=== PATIENT | male | born 1935 | race Caucasian/White ===

== ENCOUNTER 2023-05-16 09:35 | Inpatient (IN) ==
--- OUTSIDE RECORDS SUMMARY | 2023-05-16 09:39 | External Medical Summary | Summary of Care ---
Author Name Unknown Organization [facility] Address [address] [place] [address] Phone [phone] Care Team Providers Care Cotton Weigher Name Role Phone Alejandro Reddy DO Primary Care Provider [phone] Reason for Visit * Reason Comments Other Encounter Details Date Type Department Care Team (Latest Contact Info) Description 05/12/2023 7:15 PM EST [facility] Visit [facility] [address] [place] [address] Blanca Thurston PA-C [address] [place] [id number] Gout with tophus*; Atrial fibrillation with rapid ventricular response (HCC); HTN, goal below 140/90 Allergies No known active allergiesdocumented as of this encounter (statuses as of 05/13/2023) Medications Medication Sig Dispensed Refills Start Date End Date Status EXCEDRIN EXTRA STRENGTH 250-250-65 MG PO TABS takes daily for sinus problems 0 Active CLARITIN 10 MG PO CAPS None Entered 0 Active Metoprolol Succinate ER 50 MG Oral Tablet Extended Release 24 Hour (toPROL XL)Indications:Chronic atrial fibrillation (HCC) Take 1 Tablet by mouth in the morning and 1 Tablet before bedtime. 60 Tablet 5 12/07/2022 Active Eliquis 5 MG Oral TabletIndications:Chronic atrial fibrillation (HCC) Take 1 Tablet by mouth in the morning and 1 Tablet before bedtime. 60 Tablet 5 12/07/2022 Active Lisinopril 40 MG Oral Tablet Take 1 Tablet by mouth in the morning. 90 Tablet 2 03/09/2023 Active Omeprazole 20 MG Oral Capsule Delayed Release (PriLOSEC)Indications:Gas troesophageal reflux disease without esophagitis Take 1 Capsule by mouth in the morning. 1 hour before the first meal of the day.. 90 Capsule 3 04/06/2023 Active Finasteride 5 MG Oral Tablet (Proscar) Take 1 Tablet by mouth in the morning. 90 Tablet 3 04/06/2023 Active Furosemide 20 MG Oral Tablet (Lasix)Indications:Paroxy smal atrial fibrillation (HCC),HTN, goal below 130/80,Acute heart failure with preserved ejection fraction (HCC) Take 1 Tablet by mouth once a day on Wednesday, Wednesday, and Wednesday only. 40 Tablet 3 04/07/2023 Active Atorvastatin Calcium 10 MG Oral Tablet (Lipitor)Indications:Pure hypercholesterolemia Take 1 Tablet by mouth in the morning. 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 90 Tablet 3 05/07/2023 Active Indomethacin 50 MG Oral CapsuleIndications:Gout with tophus Take 1 Capsule by mouth 3 times a day as needed for Pain. with food. Wean yourself slowly once you have had some relief. 40 Capsule 0 05/12/2023 Active Doxycycline Hyclate 100 MG Oral CapsuleIndications:Gout with tophus Take 1 Capsule by mouth in the morning and 1 Capsule before bedtime. Do all this for 10 days. Until gone.. 20 Capsule 0 05/12/2023 05/22/19 24 Active Doxycycline Hyclate 100 MG Oral CapsuleIndications:Gout with tophus Take 1 Capsule by mouth once for 1 dose. Until gone. 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 Pure hypercholesterolemia 09/06/2017 History of nonmelanoma skin cancer 04/05/2017 Overview: BCC right upper lip 05/16, 07/20 HTN, goal below 140/90 07/06/2013 Gout 07/06/2013 documented as of this encounter (statuses as of 05/13/2023) Resolved Problems Problem Noted Date Diagnosed Date Resolved Date Dermatitis of both ear canals 11/26/2016 03/22/2017 Epistaxis 11/26/2016 03/22/2017 History of basal cell carcinoma 09/18/2011 04/05/2017 Overview: right upper lip 05/16 documented as of this encounter (statuses as of 05/13/2023) Immunizations Name Administration Dates Next Due COVID-19 mRNA, LNP-s, No Pre serve, 2-Dose Series (Moderna) 02/14/2021,05/18/2020,04/07/2020 Covid-19, Mrna, Lnp-s, Pf, B ivalent, 30 Mcg, IM, 12 yrs and above (Pfizer) 02/23/2022 Pneumococcal Conjugate Vacc, 13 Valent (Prevnar) 11/18/2015 Pneumococcal Polysaccharide PPV23 (Pneumovax) 01/09/2013 Season Influenza, Quad, PF, Adjuvanted, 65+ Yrs, IM (FLUAD) 11/27/2019 Seasonal Influenza, PF, 6 M & above, IM , (FluLaval or Fluzone) 01/07/2018 Seasonal Influenza, Quadriva lent Hd (Fluzone Hd) 12/07/2022,02/16/2022 Seasonal Influenza, Quadriva lent, No Preserve, IM 11/23/2016,11/18/2015,12/06/2014 12/07/2015 Seasonal Influenza, Split, I IV3, With Preserve, Inj 12/20/2013,01/09/2013,12/17/2011 Seasonal Influenza, Trivalen t, Adjuvanted, 65+ yrs 02/19/2021,12/16/2018 TDAP (age 10 and older)(Boostrix) 01/08/2014 Varicella Zoster Vaccine (Adult) 01/08/2014 documented as of this encounter Social History Tobacco Use Types Packs/Day Years Used Date Smoking Tobacco: Never Smokeless Tobacco: Never Tobacco Cessation:Counseling Given: Yes Alcohol Use Standard Drinks/Week Comments Yes 8.3 (1 standard drink = 0.6 oz p ure alcohol) occ PHQ-2 Answer Date Recorded PHQ-2 Score 0 04/04/2019 Sex and Gender Information Value Date Recorded Sex Assigned at Not on file Gender Identity Not on file Sexual Orientation Not on file Job Start Date Occupation Industry Not on file Not on file Not on file documented as of this encounter Last Filed Vital Signs Vital Sign Reading Time Taken Comments Blood Pressure 120/66 05/12/2023 6:27 PM EST Pulse 120 05/12/2023 6:27 PM EST Temperature 36.3 C (97.4 F) 05/12/2023 6:27 PM ES T Respiratory Rate 14 05/12/2023 6:27 PM EST Oxygen Saturation 93% 05/12/2023 6:27 PM EST Inhaled Oxygen Concentration - - Weight 100.1 kg (220 lb 9.6 oz) 05/12/2023 6:27 PM EST Height 171.5 cm (5' 7.5") 05/12/2023 6:27 PM EST Body Mass Index 34.04 05/12/2023 6:27 PM EST documented in this encounter Patient Instructions * Patient Instructions* Blanca Thurston PA-C - 05/12/2023 8:00 PM EST You were prescribed doxycyline. Take medication as directed. This drug may make you sunburn more easily. Use care if you will be in the sun. control pills and other hormone-based control may not work as well to prevent . Use some other kind of control also like a condom when taking this drug. DO NOT TAKE if or trying to become . It is best to avoid taking this drug at the same time as milk, dairy, or other products with calcium. This drug may not work as well. Do not take bismuth (Pepto-Bismol), calcium, iron, magnesium, zinc, multivitamins with minerals, colestipol, cholestyramine, didanosine, or antacids within 2 hours of this drug. Take all antibiotic even if symptoms improve sooner. Stopping early increases risk of antibiotic resistance and returning infection. Go to ED if erythema not improving after 36 hours. Apply cold compresses and elevate as needed for comfort. Try over the counter nonsteroidal antiinflammatory drugs such as ibuprofen or naproxen to reduce pain. Use over the counter Zyrtec (certirzine) to help with itching. You can use otc steroid cream on area to also help with itch Hot showers can make the itch worse. Follow-up sooner with PCP sooner or return to be evaluated with any change/worsening symptoms including worsening redness, warmth, fevers, chills or if symptoms persist. If any severe/acute worsening of symptoms develop, go to the ED. documented in this encounter Progress Notes * Blanca Thurston PA-C - 05/12/2023 7:49 PM EST HPI 87 year old male presents for evaluation of possible cellulitis. Patient was accompanied by Self. Location: right thumb Symptoms include: redness, warmth, and swelling, severe pain, "bumps" Symptoms started 4 days ago Symptoms are: gradually worsening Patient denies: fever, chills, and swollen lymph nodes Prior trauma or injury to the area? No Any prior history of similar symptoms? Yes, explain: had gout several years ago. Notes this is whatit usually starts at but then had worsening despite being on indocin History of any type of resistant bacteria (i.e. MRSA, VRE, etc)? 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 Yes, explain: afib, htn Modifying factors? Yes, explain: indomethacin ROS: See HPI for pertinent positives and negatives. Review of patient's allergies indicates: No Known Allergies Current Outpatient Medications Medication Sig Dispense Refill Metoprolol Succinate ER 50 MG Oral Tablet Extended Release 24 Hour (toPROL XL) Take 1 Tablet by mouth in the morning and 1 Tablet before bedtime. 60 Tablet 5 Eliquis 5 MG Oral Tablet Take 1 Tablet by mouth in the morning and 1 Tablet before bedtime. 60 Tablet 5 Lisinopril 40 MG Oral Tablet Take 1 Tablet by mouth in the morning. 90 Tablet 2 Omeprazole 20 MG Oral Capsule Delayed Release (PriLOSEC) Take 1 Capsule by mouth in the morning. 1 hour before the first meal of the day.. 90 Capsule 3 Finasteride 5 MG Oral Tablet (Proscar) Take 1 Tablet by mouth in the morning. 90 Tablet 3 Furosemide 20 MG Oral Tablet (Lasix) Take 1 Tablet by mouth once a day on Wednesday, Wednesday, and Wednesday only. 40 Tablet 3 Atorvastatin Calcium 10 MG Oral Tablet (Lipitor) Take 1 Tablet by mouth in the morning. 90 Tablet 3 Allopurinol 300 MG Oral Tablet (Zyloprim) Take 1 Tablet by mouth in the morning. 90 Tablet 3 Indomethacin 50 MG Oral Capsule Take 1 Capsule by mouth 3 times a day as needed for Pain. with food. Wean yourself slowly once you have had some relief. 40 Capsule 0 Doxycycline Hyclate 100 MG Oral Capsule Take 1 Capsule by mouth in the morning and 1 Capsule beforebedtime. Do all this for 10 days. Until gone.. 20 Capsule 0 Doxycycline Hyclate 100 MG Oral Capsule Take 1 Capsule by mouth once for 1 dose. Until gone. 1 Capsule 0 EXCEDRIN EXTRA STRENGTH 250-250-65 MG PO TABS takes daily for sinus problems CLARITIN 10 MG PO CAPS None Entered No current facility-administered medications for this visit. Past Medical History: Diagnosis Date Diverticulosis of colon (without mention of hemorrhage) 08/07/2013 sigmoid colon Obstructive sleep apnea 03/02/07 Past Surgical History: Procedure Laterality Date COLONOSCOPY 01/25/03 negative COLONOSCOPY, DIAGNOSTIC (RECTUM) 08/07/2013 diverticulosis, repeat 10 yrs/COLONOSCOPY FLEXIBLE PROXIMAL DIAGNOSTIC performed by Pollo Aragon MD at ENDOSCOPY [facility] PROSTATE, LASER VAPORIZATION N/A 05/19/2021 LASER VAPORIZATION PROSTATE performed by Isauro Hammond MD at OR [facility] REMOVE LARGE BLADDER STONE, COMPLIC N/A 05/19/2021 LITHOLAPAXY COMPLICATED performed by Isauro Hammond MD at OR [facility] RMV MALG LSN FACE/EAR 1.1-2CM basal cell Social History Tobacco Use Smoking status: Never Smokeless tobacco: Never Substance Use Topics Alcohol use: Yes Alcohol/week: 8.3 standard drinks of alcohol Types: 10 12 oz of beer per week Comment: occ Vaping/E-Cigarette Use Vaping/E-Cigarette Use Never User Vaping/E-Cigarette Substances Nicotine No Other No Flavoring No THC No Cannabidiol (CBD) No Vaping/E-Cigarette Devices Disposable No Pre-filled or Refillable Cartridge No Refillable Tank No Pre-filled Pod No PHYSICAL EXAM BP 120/66 | Pulse 120 | Temp 36.3 C (97.4 F) | Resp 14 | Ht 1.715 m (5' 7.5") | Wt 100.1 kg (220 lb 9.6 oz) | SpO2 93% | BMI 34.04 kg/m | BSA 2.18 m General: awake, alert, no apparent distress Eyes: no proptosis, no periorbital inflammation or soft tissue edema, no orbital cellulitis Lungs: clear to auscultation, no rhonchi, no wheezes, and no crackles Heart: regular rate, regular rhythm, no murmurs , no rubs, and no gallops Skin of right hand: thumb and dorsal hand with tophus and significant swelling with erythema and induration and tenderness Drainage is not present. Fluctuation is present. Skin does have peau d'orange appearance. Lymph nodes: Regional lymphadenopathy is absent . ASSESSMENT/PLAN Gout with tophus (Primary) - Indomethacin 50 MG Oral Capsule; Take 1 Capsule by mouth 3 times a day as needed for Pain. with food. Wean yourself slowly once you have had some relief. - Doxycycline Hyclate 100 MG Oral Capsule; Take 1 Capsule by mouth in the morning and 1 Capsule before bedtime. Do all this for 10 days. Until gone.. - Doxycycline Hyclate 100 MG Oral Capsule; Take 1 Capsule by mouth once for 1 dose. Until gone. Atrial fibrillation with rapid ventricular response (HCC) HTN, goal below 140/90 Patient is at risk for MRSA and therefore will give doxycycline. Gave first dose in office due to pharmacies not being available to patient. Also to treat for gout flare. Due to afib history, to avoid steroid use. Patient made aware of severity of symptoms and possible need for ED. Defers at this time. Will treat for both and have patient follow up with pcp if no improvement. Defers additional blood work. Affected area demarcated and instructed patient on appropriate monitoring of erythema to determine response to antibiotics. To return if erythema not improving after 36 hours. Care instructions given. Additional instructions per patient instructions attached. Follow up with PCP in 3-5 days to follow up. Reasons to go to ED discussed with patient including but not limited to development of acute or severe symptoms. Patient agrees with the plan and demonstrates verbal understanding. Patient stable at the time of discharge. Begin addendum: while prescribing indomethacin, report for eliquis and increased likelihood of bleeding came up. Patient notes "I am already taking indomethacin and I am not bleeding". I explained that I would reach out to care team to discuss prednisone alternative vs indomethacin. Will refill fornow. Patient expressed understanding. End addendum Patient instructed to contact Primary Care Provider for follow-up within 48-72 hours. Can return toConvenient Care if unable to reach Primary Care Provider and symptoms not improving. To the ER if worsening redness, pain, high fevers/shaking chills. The border of erythema was outlined to aid in assessing response to therapy if necessary. Patient goals for plan of care were discussed Patient Instructions You were prescribed doxycyline. Take medication as directed. This drug may make you sunburn more easily. Use care if you will be in the sun. control pills and other hormone-based control may not work as well to prevent . Use some other kind of control also like a condom when taking this drug. DO NOT TAKE if or trying to become . It is best to avoid taking this drug at the same time as milk, dairy, or other products with calcium. This drug may not work as well. Do not take bismuth (Pepto-Bismol), calcium, iron, magnesium, zinc, multivitamins with minerals, colestipol, cholestyramine, didanosine, or antacids within 2 hours of this drug. Take all antibiotic even if symptoms improve sooner. Stopping early increases risk of antibiotic resistance and returning infection. Go to ED if erythema not improving after 36 hours. Apply cold compresses and elevate as needed for comfort. Try over the counter nonsteroidal antiinflammatory drugs such as ibuprofen or naproxen to reduce pain. Use over the counter Zyrtec (certirzine) to help with itching. You can use otc steroid cream on area to also help with itch Hot showers can make the itch worse. Follow-up sooner with PCP sooner or return to be evaluated with any change/worsening symptoms including worsening redness, warmth, fevers, chills or if symptoms persist. If any severe/acute worsening of symptoms develop, go to the ED. I spent a total of 38 minutes on the date of service in preparation, delivery, and documentation ofthe care provided to Bautista Villarreal excluding any time spent in the performance of separately billedservices. Blanca Thurston PA-C [facility] [address] [facility] [place] [address] documented in this encounter Nursing Notes * Sally Guerrero LPN - 05/12/2023 8:19 PM EST Per order in chart-pt administered doxycycline hyclate 100mg tab orally without incident. Doxycycline Hyclate Lot # [id number] exp 09/29. * Sanjana Naylor LPN - 05/12/2023 6:26 PM EST Bautista Villarreal is a 87 year old male who presents to clinic today for... Main Symptoms:right thumb red, swollen, painful and warm to touch How long: since Wednesday Tried: indocin Pt accompanied by: self documented in this encounter Plan of Treatment Upcoming Encounters Date Type Department Care Team (Late st Contact Info) Description 07/16/2023 7:15 AM EDT Cardiac Studies Cardiac Studies, [facility] [address] [facility] [place] [address] 09/10/2023 8:30 AM EDT Office Visit Cardiology, [facility] [address] [facility] [place] [address] Anahy Saunders PA-C [address] [place] [address] [place] [id number] 12/03/2023 8:40 AM EDT [facility] [address] [facility] [address] Alejandro Reddy DO [address] [place] [address] Scheduled Procedures Name Priority Associated Diagnoses Date/Ti me COLONOSCOPY FLEXIBLE PROXIMA L DIAGNOSTIC Recall Special screening for malignant neoplasms, colon Health Maintenance Due Date Last Done Comments Zoster Vaccines (2 of 3) 03/05/2014 01/08/2014 Depression Screening 04/04/2020 04/04/2019 COVID-19 Vaccine (5 - 2022- season) 2022 02/23/2022, 02/14/2021, 05/18/2020, Additional history exists DTaP,Tdap,and Td Vaccines (2 - Td or Tdap) 01/09/2024 01/08/2014 Albumin/Creatinine Ratio 02/27/2024 02/26/2021 Pneumococcal Vaccine: 65+ Years Completed 11/18/2015, 01/09/2013 Influenza Vaccine (FLU shot) Completed 04/2022, 02/16/2022, 02/19/2021, Additional history exists GARDASIL-HPV IMMUNIZATION SERIES Aged Out No longer eligible based on patient's age to complete this topic Hepatitis B Aged Out No longer eligi ble based on patient's age to complete this topic MENINGOCOCCAL (MENACTRA/MENVEO) Aged Out No longer eligible based on patient's age to complete this topic documented as of this encounter Medical Devices Not on filedocumented as of this encounter Visit Diagnoses Diagnosis Gout with tophus- Primary Atrial fibrillation with rapid ventricular response (HCC) Atrial fibrillation HTN, goal below 140/90 Unspecified essential hypertension documented in this encounter Advance Directives Documents on File Type Date 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 Code Status History Code Status Date Activated Date Inactivated Comments Full Code 05/19/2021 9:08 AM 05/19/2021 12:38 PM This order reflects the patients wishes and were consensually agreed upon. Care Teams Cotton Weigher Relationship Specialty Start Date End Date Alejandro Reddy DO [address] [place] [address] PCP - General Family Medicine 04/05/17 documented as of this encounter
--- OUTSIDE RECORDS SUMMARY | 2023-05-16 09:39 | External Medical Summary | Summary of Care ---
Author Name Unknown Organization [facility] Address [address] [place] [address] Phone [phone] Care Team Providers Care Yarn Spinner Name Role Phone Alejandro Reddy DO Primary Care Provider [phone] Encounter Details Date Type Department Care Team (Late st Contact Info) Description 05/07/2023 Telephone Family Practice [facility] [address] [place] [address] Alejandro Reddy DO [address] [place] [address] Allergies No known active allergiesdocumented as of this encounter (statuses as of 05/07/2023) Medications Medication Sig Dispensed Refills Start Date [...] the morning. 90 Tablet 3 05/07/2023 Active documented as of this encounter (statuses as of 05/07/2023) Active Problems Problem Noted Date Diagnosed Date [...] as of this encounter (statuses as of 05/07/2023) Resolved Problems Problem Noted Date Diagnosed Date Resolved Date Dermatitis of both ear canals 11/26/2016 03/22/2017 Epistaxis 11/26/2016 03/22/2017 History of basal cell carcinoma 09/18/2011 04/05/2017 Overview: right upper lip 05/16 documented as of this encounter (statuses as of 05/07/2023) Immunizations Name Administration Dates Next Due COVID-19 [...] Date Smoking Tobacco: Never Smokeless Tobacco: Never Alcohol Use Standard Drinks/Week Comments Yes 8.3 [...] on file documented as of this encounter Plan of Treatment Upcoming Encounters Date Type Department Care Team (Late st Contact Info) Description 07/16/2023 7:15 AM EDT Cardiac Studies Cardiac Studies, [facility] [address] [facility] [place] [address] 09/10/2023 8:30 AM EDT Office Visit Cardiology, [address] [place] [address] Anahy Saunders PA-C [address] [place] [address] 12/03/2023 8:40 AM EDT Office Visit Family Practice [facility] [place] [address] [facility] [place] [address] Alejandro Reddy DO [address] [facility] [place] [address] Scheduled Orders Name Type Priority Associated Diagnoses Orde r Schedule BNP, NT-PRO Lab Routine Atrial fibrillation with rapid ventricular response (HCC) Expected: 05/14/2023 (Approximate), Expires: 05/06/2024 BASIC METABOLIC PANEL Lab Routine Atrial fibrillation with rapid ventricular response (HCC) Expected: 05/14/2023 (Approximate), Expires: 05/06/2024 Scheduled Procedures Name Priority Associated Diagnoses Date/Ti me COLONOSCOPY FLEXIBLE PROXIMA L DIAGNOSTIC Recall Special screening for malignant neoplasms, colon Health Maintenance Due Date Last Done Comments Zoster Vaccines (2 of 3) 03/05/2014 01/08/2014 Depression Screening 04/04/2020 04/04/2019 COVID-19 Vaccine (2022- season) 2022 02/23/2022, 02/14/2021, 05/18/2020, Additional history [...] as of this encounter Visit Diagnoses Diagnosis Atrial fibrillation with rapid ventricular response (HCC)- Primary Atrial fibrillation documented in this encounter Advance Directives Documents on File Type Date 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 Care Teams Yarn Spinner Relationship Specialty Start Date End Date Alejandro Reddy DO [address] [place] [id number] PCP - General Family Medicine 04/05/17 documented as of this encounter
--- OUTSIDE RECORDS SUMMARY | 2023-05-16 09:39 | External Medical Summary | Summary of Care ---
Author Name Unknown Organization [facility] Address [address] [place] [address] Phone [phone] Care Team Providers Care Cut Out Worker Name Role Phone Alejandro Reddy DO Primary Care Provider [phone] Encounter Details Date Type Department Care Team (Late st Contact Info) Description 05/11/2023 Orders Only Outcomes Research Department [address] [place], [place] [id number] Leelee Nova CHRA [facility] Research Other*[id number] Allergies No known active allergiesdocumented as of this encounter (statuses as of 05/11/2023) Medications Medication Sig Dispensed Refills Start Date [...] as of this encounter (statuses as of 05/11/2023) Active Problems Problem Noted Date Diagnosed Date [...] as of this encounter (statuses as of 05/11/2023) Resolved Problems Problem Noted Date Diagnosed Date Resolved Date Dermatitis of both ear canals 11/26/2016 03/22/2017 Epistaxis 11/26/2016 03/22/2017 History of basal cell carcinoma 09/18/2011 04/05/2017 Overview: right upper lip 05/16 documented as of this encounter (statuses as of 05/11/2023) Immunizations Name Administration Dates Next Due COVID-19 [...] 7:15 AM EDT Cardiac Studies Cardiac Studies, [facility] [address] [facility] [place] [address] 09/10/2023 8:30 AM EDT Office Visit Cardiology, [facility] [address] [facility] [place] [address] Anahy Saunders PA-C [address] [place] [address] 12/03/2023 8:40 AM EDT Office Visit Family Practice [place] [facility] [place] [address] [facility] [place] [address] Alejandro Reddy DO [address] [facility] [place] [address] Scheduled Orders Name Type Priority Associated Diagnoses Orde r Schedule MYCODE SUBSEQUENT ADULT Lab Routine [facility] Other*[id number] Every 6 Months for 2 Occurrences starting 05/11/2023 until 05/30/2024 Scheduled Procedures Name Priority Associated Diagnoses Date/Ti me COLONOSCOPY FLEXIBLE PROXIMA L DIAGNOSTIC Recall Special screening for malignant neoplasms, colon Health Maintenance Due Date Last Done Comments Zoster Vaccines (2 of 3) 03/05/2014 01/08/2014 Depression Screening 04/04/2020 04/04/2019 COVID-19 Vaccine ( season) 2022 02/23/2022, 02/14/2021, 05/18/2020, Additional history [...] as of this encounter Visit Diagnoses Diagnosis [facility] Other*[id number] documented in this encounter Advance Directives Documents on File Type Date Recorded Patient Insurance Defense Paralegal Expl anation Advance Directives and Living Will [...] and were consensually agreed upon. Care Teams Cut Out Worker Relationship Specialty Start Date End Date Alejandro Reddy DO [address] [place] [address] PCP - General Family Medicine 04/05/17 documented as of this encounter
--- OUTSIDE RECORDS SUMMARY | 2023-05-16 09:39 | External Medical Summary | Summary of Care ---
Author Name Unknown Organization [facility] Address [address] [place] [address] Phone [phone] Care Team Providers Care Trophy Assembler Name Role Phone Alejandro Reddy DO Primary Care Provider [phone] Reason for Visit * Reason Comments Other Encounter Details Date Type Department Care Team (Latest Contact Info) Description 05/12/2023 7:15 PM EST Convenient Care Visit [facility] [address] [place] [address] Blanca Thurston PA-C [address] [place] [address] Gout with tophus*; Atrial fibrillation with rapid ventricular response (HCC); HTN, goal below 140/90 Allergies No known active allergiesdocumented as of this encounter (statuses as of 05/12/2023) Medications Medication Sig Dispensed Refills Start Date [...] days. Until gone.. 20 Capsule 0 05/12/2023 4 Active Doxycycline Hyclate 100 MG Oral CapsuleIndications:Gout with tophus Take 1 Capsule by mouth once for 1 dose. Until gone. 1 Capsule 0 05/12/2023 4 Active documented as of this encounter (statuses as of 05/12/2023) Active Problems Problem Noted Date Diagnosed Date [...] as of this encounter (statuses as of 05/12/2023) Resolved Problems Problem Noted Date Diagnosed Date Resolved Date Dermatitis of both ear canals 11/26/2016 03/22/2017 Epistaxis 11/26/2016 03/22/2017 History of basal cell carcinoma 09/18/2011 04/05/2017 Overview: right upper lip 05/16 documented as of this encounter (statuses as of 05/12/2023) Immunizations Name Administration Dates Next Due COVID-19 [...] performed by Pollo Aragon MD at ENDOSCOPY [facility] PROSTATE, LASER VAPORIZATION N/A 05/19/2021 LASER VAPORIZATION PROSTATE performed by Isauro Hammond MD at OR [facility] REMOVE LARGE BLADDER STONE, COMPLIC N/A 05/19/2021 LITHOLAPAXY COMPLICATED performed by Isauro Hammond MD at OR [facility] RMV MALG LSN FACE/EAR 1.1-2CM basal cell [...] Patient stable at the time of discharge. Patient instructed to contact Primary Care Provider [...] performance of separately billedservices. Blanca Thurston PA-C [facility] [address] [facility] [address] documented in this encounter Nursing Notes * Sally Guerrero LPN - 05/12/2023 8:19 PM EST Per order in chart-pt administered doxycycline hyclate 100mg tab orally without incident. Doxycycline Hyclate Lot # [id number] exp 09/29. * Sanjana Naylor LPN - [...] 7:15 AM EDT [facility] [address] [place] [address] 09/10/2023 8:30 AM EDT [facility] [address] [facility] [place] [address] Anahy Saunders PA-C [address] [place] [address] [place] [address] 12/03/2023 8:40 AM EDT Office Visit Family Practice Manuel Guido [place] [address] [place] [address] Alejandro Reddy DO [address] [place] [address] Scheduled Procedures Name Priority Associated Diagnoses Date/Ti [...] Documents on File Type Date Recorded Patient Cook Fast Food Expl anation Advance Directives and Living Will [...] and were consensually agreed upon. Care Teams Trophy Assembler Relationship Specialty Start Date End Date Alejandro Reddy DO [address] [place] [address] PCP - General Family Medicine 04/05/17 documented as of this encounter
--- OUTSIDE RECORDS SUMMARY | 2023-05-16 09:39 | External Medical Summary | Summary of Care ---
Author Name Unknown Organization [facility] Address [address] [place] [address] Phone [phone] Care Team Providers Care Mate Chief Name Role Phone Alejandro Reddy Primary Care Provider [phone] Reason for Visit * Reason Onset Date Comments Medication Question 05/13/2023 Encounter Details Date Type Department Care Team ([facility] st Contact Info) Description 05/13/2023 Telephone [facility] [employer] [facility] [address] [place] [address] Blanca Thurston PA-C [address] [place] [address] Medication Question Allergies No known active allergiesdocumented as of [...] days. Until gone.. 20 Capsule 0 05/12/2023 Active documented as of this encounter (statuses [...] on file documented as of this encounter Miscellaneous Notes * Telephone Encounter - Blanca Thurston PA-C - 05/13/2023 9:54 AM EST Called and spoke to cardiology. (JEANNETTE Saunders) Explained patient's recent acute condition and concerns of indomethacin and eliquis, vs prednisone and afib. At present, they recommend continuing indomethacin and monitoring for signs/symptoms of bleeding. They note that they will follow up with patient. documented in this encounter Plan of Treatment Upcoming Encounters Date Type Department Care Team (Late st Contact Info) Description 07/16/2023 7:15 AM EDT Cardiac Studies Cardiac Studies, [facility] [address] [facility] [place] [address] 09/10/2023 8:30 AM EDT Office Visit Cardiology, [facility] [address] [facility] [place] [address] Anahy Saunders PA-C [address] [place] [address] [place] [address] 12/03/2023 8:40 AM EDT Office Visit Family Practice [facility] [address] [facility] [place] [address] Alejandro Reddy DO [address] [facility] [place] [address] Scheduled Procedures Name Priority Associated Diagnoses Date/Ti [...] Not on filedocumented as of this encounter Advance Directives Documents on File Type Date Recorded Patient Enterprise Systems Engineer Expl anation Advance Directives and Living Will [...] and were consensually agreed upon. Care Teams Mate Chief Relationship Specialty Start Date End Date Alejandro Reddy DO [address] [place], [place] [address] PCP - General Family Medicine 04/05/17 documented as of this encounter
--- OUTSIDE RECORDS SUMMARY | 2023-05-16 09:39 | External Medical Summary | Summary of Care ---
Author Name Unknown Organization [facility] Address [address] [place] [address] Phone [phone] Care Team Providers Care Chargeback Analyst Name Role Phone Alejandro Reddy DO Primary Care Provider [phone] Reason for Visit * Reason Comments Outpatient Testing Encounter Details Date Type Department Care Team (Latest Contact Info) Description 05/07/2023 9:30 AM EST Laboratory Laboratory [facility] [place] [address] [place] [address] [facility] [address] [place] [address] Chronic atrial fibrillation (HCC); Encounter for long-term (current) use of medications; [employer] Research Other*[id number]; Acute heart failure with preserved ejection fraction (HCC); Pure hypercholesterolemia Allergies No known active allergiesdocumented as of [...] cancer 04/05/2017 Overview: BCC right upper lip 07/20 HTN, goal below 140/90 07/06/2013 Gout [...] 7:15 AM EDT Cardiac Studies Cardiac Studies, [facility] [address] [place] [address] 09/10/2023 8:30 AM EDT Office Visit Cardiology, [facility] [address] [place] [address] Anahy Saunders PA-C [address] [facility] [place] [address] 12/03/2023 8:40 AM EDT Office Visit [facility] [place] [address] [facility] [place] [address] Alejandro Reddy DO [address] [facility] [place] [address] Pending Results Name Type Priority Associated Diagnoses Date /Time CBC WITH WBC DIFFERENTIAL AND ANEMIA REFLEX WORKUP Lab Routine Chronic atrial fibrillation ([facility]) 05/07/2023 9:07 AM EST VITAMIN B12 Lab Routine Encounter for long-term (current) use of medications 05/07/2023 9:07 AM EST MAGNESIUM Lab Routine Encounter for long-term (current) use of medications 05/07/2023 9:07 AM EST MYCODE INITIAL ADULT Lab Routine [facility] Other*[id number] 05/07/2023 9:07 AM EST LIPID PANEL WITH DIRECT LDL IF TG IS HIGH Lab Routine Acute heart failure with preserved ejection fraction (HCC) Pure hypercholesterolemia 05/07/2023 9:07 AM EST COMPREHENSIVE METABOLIC PANEL Lab Routine Acute heart failure with preserved ejection fraction (HCC) Pure hypercholesterolemia 05/07/2023 9:07 AM EST BNP, NT-PRO Lab Routine Acute heart failure with preserved ejection fraction (HCC) 05/07/2023 9:07 AM EST ANEMIA CBC Lab Routine Chronic atrial fibrillation ([facility]) 05/07/2023 9:07 AM EST DIFFERENTIAL, AUTOMATED Lab Routine Chronic atrial fibrillation ([facility]) 05/07/2023 9:07 AM EST ANEMIA REFLEX CHEMISTRY HOLD Lab Routine Chronic atrial fibrillation ([facility]) 05/07/2023 9:07 AM EST MYCODE INITIAL ADULT-PINK Lab Routine [facility] Other*[id number] 05/07/2023 9:07 AM EST MYCODE SST1 Lab Routine [facility] Other*[id number] 05/07/2023 9:07 AM EST MYCODE SST2 Lab Routine [facility] Other*[id number] 05/07/2023 9:07 AM EST Scheduled Procedures Name Priority Associated Diagnoses Date/Ti [...] as of this encounter Visit Diagnoses Diagnosis Chronic atrial fibrillation (HCC) Atrial fibrillation Encounter for long-term (current) use of medications Encounter for long-term (current) use of other medications [facility] Other*[id number] Acute heart failure with preserved ejection fraction (HCC) Pure hypercholesterolemia documented in this encounter Advance Directives Documents on File Type Date Recorded Patient Back Pad Inspector Expl anation Advance Directives and Living Will [...] and were consensually agreed upon. Care Teams Chargeback Analyst Relationship Specialty Start Date End Date Newhouser, Alejandro D, DO [address] [place], [place] [id number] PCP - General Family Medicine 04/05/17 documented as of this encounter
--- OUTSIDE RECORDS SUMMARY | 2023-05-16 09:40 | External Medical Summary | Summary of Care ---
Author Name Unknown Organization [facility] Address [address] [place] [address] Phone [phone] Care Team Providers Care Instrument And Control Service Person Name Role Phone Alejandro Reddy DO Primary Care Provider [phone] Encounter Details Date Type Department Care Team (Late st Contact Info) Description 04/19/2023 Orders Only Outcomes Research Department [address] [place] [address] Leelee Nova CHRA [facility] Research Other*[id number] Allergies No known active allergiesdocumented as of this encounter (statuses as of 04/19/2023) Medications Medication Sig Dispensed Refills Start Date End Date Status EXCEDRIN EXTRA STRENGTH 250-250-65 MG PO TABS takes daily for sinus problems 0 Active CLARITIN 10 MG PO CAPS None Entered 0 Active Atorvastatin Calcium 10 MG Oral Tablet (Lipitor)Indications:Pure hypercholesterolemia Take 1 Tablet by mouth in the morning. 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 90 Tablet 3 10/02/2022 Active Metoprolol Succinate ER 50 MG Oral [...] Wednesday only. 40 Tablet 3 04/07/2023 Active documented as of this encounter (statuses as of 04/19/2023) Active Problems Problem Noted Date Diagnosed Date Atrial fibrillation with rapid ventricular respo nse [...] as of this encounter (statuses as of 04/19/2023) Resolved Problems Problem Noted Date Diagnosed Date Resolved Date Dermatitis of both ear canals 11/26/2016 03/22/2017 Epistaxis 11/26/2016 03/22/2017 History of basal cell carcinoma 09/18/2011 04/05/2017 Overview: right upper lip 05/16 documented as of this encounter (statuses as of 04/19/2023) Immunizations Name Administration Dates Next Due COVID-19 [...] Team (Late st Contact Info) Description 05/07/2023 8:20 AM EST Office Visit Family Practice [facility] [place] [address] [facility] [place] [address] Alejandro Reddy DO [address] [facility] [place] [address] Scheduled Orders Name Type Priority Associated Diagnoses Orde r Schedule MYCODE INITIAL ADULT Lab Routine [facility] Research Other*[id number] Expected: 04/19/2023 (Approximate), Expires: 05/08/2024 Scheduled Procedures Name Priority Associated Diagnoses Date/Ti [...] this encounter Visit Diagnoses Diagnosis [facility] Other*[id number] documented in this encounter Advance Directives Documents on File Type Date Recorded Patient Mechanical Project Manager Expl anation Advance Directives and Living Will [...] and were consensually agreed upon. Care Teams Instrument And Control Service Person Relationship Specialty Start Date End Date Alejandro Reddy DO [address] [place] [address] PCP - General Family Medicine 04/05/17 documented as of this encounter
--- OUTSIDE RECORDS SUMMARY | 2023-05-16 09:40 | External Medical Summary | Summary of Care ---
Author Name Unknown Organization [facility] Address [address] [place] [address] Phone [phone] Care Team Providers Care Physician Advisor Name Role Phone Alejandro Reddy DO Primary Care Provider [phone] Reason for Referral * Evaluate & Treat - Unlimited Visits (Within 30 days (routine)) - Pending Review Specialty Diagnoses / Procedures Referred By Gui ryan Referred To Contact Cardiovascular Medicine / Cardiology Diagnoses Paroxysmal atrial fibrillation (HCC) Acute heart failure with preserved ejection fraction (HCC) SOB (shortness of breath) on exertion Alejandro Reddy DO [address] [place] [address] Referral ID Status Reason Start Date Expiration Date Visits Requested Visits Authorized [id number] Pending Review Specialty Services Required 05/07/[phone] Question Answer Referral Priority Within 30 days (routine) Where should this appointment be scheduled? [facility] To which of the following clinics are you referring your patient? General Cardiology Clinic * Precert (Within 10 days (routine)) - Pending Review Specialty Diagnoses / Procedures Referred By Gui ryan Referred To Contact Cardiac Studies Diagnoses Paroxysmal atrial fibrillation (HCC) Acute heart failure with preserved ejection fraction (HCC) SOB (shortness of breath) on exertion Procedures ECHO, COMPLETE (2D), TRANS-THORACIC Alejandro Reddy DO [address] [place] [address] Referral ID Status Reason Start Date Expiration Date Visits Requested Visits Authorized [id number] Pending Review Precert 05/07/[phone] Reason for Visit * Reason Comments Re-Check Encounter Details Date Type Department Care Team (Late st Contact Info) Description 05/07/2023 8:20 AM EST Office Visit Family Practice [place] [address] [facility] [place] [address] Alejandro Reddy DO [address] [facility] [place] [address] Pure hypercholesterolemia* ; Paroxysmal atrial fibrillation (HCC); Acute heart failure with preserved ejection fraction (HCC); Idiopathic chronic gout of multiple sites without tophus; SOB (shortness of breath) on exertion Allergies No known active allergiesdocumented as of [...] 1 Tablet before bedtime. 60 Tablet 5 3 Active Eliquis 5 MG Oral TabletIndications:Chronic atrial fibrillation (HCC) Take 1 Tablet by mouth in the morning and 1 Tablet before bedtime. 60 Tablet 5 3 Active Lisinopril 40 MG Oral Tablet Take 1 Tablet by mouth in the morning. 90 Tablet 2 4 Active Omeprazole 20 MG Oral Capsule Delayed Release (PriLOSEC)Indications:Gas troesophageal reflux disease without esophagitis Take 1 Capsule by mouth in the morning. 1 hour before the first meal of the day.. 90 Capsule 3 4 Active Finasteride 5 MG Oral Tablet (Proscar) Take 1 Tablet by mouth in the morning. 90 Tablet 3 4 Active Furosemide 20 MG Oral Tablet (Lasix)Indications:Paroxy smal atrial fibrillation (HCC),HTN, goal below 130/80,Acute heart failure with preserved ejection fraction (HCC) Take 1 Tablet by mouth once a day on Wednesday, Wednesday, and Wednesday only. 40 Tablet 3 4 Active Atorvastatin Calcium 10 MG Oral Tablet (Lipitor)Indications:Pure hypercholesterolemia Take 1 Tablet by mouth in the morning. 90 Tablet 3 4 Active Allopurinol 300 MG Oral Tablet (Zyloprim)Indications:Idi opathic chronic gout of multiple sites without tophus Take 1 Tablet by mouth in the morning. 90 Tablet 3 4 Active Atorvastatin Calcium 10 MG Oral Tablet (Lipitor)Indications:Pure hypercholesterolemia Take 1 Tablet by mouth in the morning. 90 Tablet 3 3 05/07/19 24 Discontinu ed(Refill) Allopurinol 300 MG Oral Tablet (Zyloprim)Indications:Idi opathic chronic gout of multiple sites without tophus Take 1 Tablet by mouth in the morning. 90 Tablet 3 3 05/07/19 24 Discontinu ed(Refill) documented as of this encounter (statuses as [...] Sign Reading Time Taken Comments Blood Pressure 136/84 05/07/2023 8:16 AM EST Pulse 95 05/07/2023 8:16 AM EST Temperature 35.5 C (95.9 F) 05/07/2023 8:16 AM ES T Respiratory Rate 16 05/07/2023 8:16 AM EST Oxygen Saturation 94% 05/07/2023 8:16 AM EST Inhaled Oxygen Concentration - - Weight 98.2 kg (216 lb 9.6 oz) 05/07/2023 8:16 A M EST Height - - Body Mass Index 33.48 11/20/2022 9:38 AM EDT documented in this encounter Progress Notes * JavedAlejandro cade, DO - 05/07/2023 8:36 AM EST Subjective: Bautista Villarreal is a 87 year old male. Chief Complaint Patient presents with Re-Check HPI: Pt here in follow-up. Feels good at baseline but when doing something strenuous he gets more SOB and plays out faster. Nowheezing with it. HAs to take some deeper breathes. After he sits down a few minutes he can get back to it. Fine while sitting. He missed cardio follow-up, open to seeing them again. Overall still active. 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 Some blood in his urine. He notices if he skips an Eliquis it clears up. Blood comes rarely - Maybeonce per week. Sometimes brown urine. He actually went through a CT Urogram and cystoscopy for this already. IT came back clear. We discussed repeating it but. BP rechecked and good. PMHx, meds, and allergies reviewed Patient Active Problem List Diagnosis Code HTN, goal below 140/90 I10 Gout M10.9 History of nonmelanoma skin cancer Z85.828 Pure hypercholesterolemia E78.00 BPH with obstruction/lower urinary tract symptoms N40.1, N13.8 Gastroesophageal reflux disease without esophagitis K21.9 Hematuria, gross R31.0 Calculus of kidney N20.0 Bladder stone N21.0 Atrial fibrillation with rapid ventricular response (HCC) I48.91 Paroxysmal atrial fibrillation (HCC) I48.0 Acute heart failure with preserved ejection fraction (HCC) I50.31 Current Outpatient Medications Medication Sig Dispense Refill EXCEDRIN EXTRA STRENGTH 250-250-65 MG PO TABS takes daily for sinus problems CLARITIN 10 MG PO CAPS None Entered Atorvastatin Calcium 10 MG Oral Tablet (Lipitor) Take 1 Tablet by mouth in the morning. 90 Tablet 3 Allopurinol 300 MG Oral Tablet (Zyloprim) Take 1 Tablet by mouth in the morning. 90 Tablet 3 Metoprolol Succinate ER 50 MG Oral Tablet [...] Wednesday, and Wednesday only. 40 Tablet 3 No current facility-administered medications for this visit. Review of patient's allergies indicates: No Known Allergies OBJECTIVE: BP 150/100 | Pulse 95 | Temp 35.5 C (95.9 F) (Tympanic) | Resp 16 | Wt 98.2 kg (216 lb 9.6 oz) | SpO2 94% | BMI 33.48 kg/m | BSA 2.16 m Estimated body mass index is 33.48 kg/m as calculated from the following: Height as of 11/20/22: 1.713 m (5' 7.44"). Weight as of this encounter: 98.2 kg (216 lb 9.6 oz). BP Readings from Last 3 Encounters: 05/07/23 150/100 12/21/22 132/84 12/07/22 122/74 Wt Readings from Last 3 Encounters: 05/07/23 98.2 kg (216 lb 9.6 oz) 12/21/22 96.6 kg (213 lb) 12/07/22 96.3 kg (212 lb 6.4 oz) ROS: Negative except for above PHYSICAL EXAM: General: alert, healthy, and no distress Head: Normocephalic, No masses, lesions, tenderness or abnormalities Heart: no murmur, no gallops, and irregularly irregular Lungs: chest symmetric with normal AP diameter, no chest deformities noted, no chest wall tenderness, lungs clear to auscultation Extremities: less than 2 second capillary refill, no joint deformities, effusion, or inflammation ASSESSMENT/Plan Pure hypercholesterolemia (Primary) - LIPID PANEL WITH DIRECT LDL IF TG IS HIGH; Future; Expected date: 05/07/2023 - COMPREHENSIVE METABOLIC PANEL; Future; Expected date: 05/07/2023 - Atorvastatin Calcium 10 MG Oral Tablet (Lipitor); Take 1 Tablet by mouth in the morning. Paroxysmal atrial fibrillation (HCC) - ECHO, COMPLETE (2D), TRANS-THORACIC; Future; Expected date: 05/07/2023 - CARDIOLOGY REFERRAL OP Acute heart failure with preserved ejection fraction (HCC) - LIPID PANEL WITH DIRECT LDL IF TG IS HIGH; Future; Expected date: 05/07/2023 - COMPREHENSIVE METABOLIC PANEL; Future; Expected date: 05/07/2023 - ECHO, COMPLETE (2D), TRANS-THORACIC; Future; Expected date: 05/07/2023 - CARDIOLOGY REFERRAL OP Idiopathic chronic gout of multiple sites without tophus - Allopurinol 300 MG Oral Tablet (Zyloprim); Take 1 Tablet by mouth in the morning. SOB (shortness of breath) on exertion - ECHO, COMPLETE (2D), TRANS-THORACIC; Future; Expected date: 05/07/2023 - CARDIOLOGY REFERRAL OP I spent a total of 30 minutes on the date of service in preparation, delivery, and documentation ofthe care provided to this patient, excluding any time spent on the performance of any procedure or separately billable services. It's hard to tell if his SOB with exertion is AFib induced or even possibly from Metoprolol. Will get follow-up CT and BNP to see if this isn't heart failure. We discussed PFTs but no real wheezing. The above was discussed and understanding was expressed. Alejandro Reddy DO documented in this encounter Nursing Notes * Daphne Canada LPN - 05/07/2023 8:13 AM EST Bautista Rashawn Villarreal presents for 6 month recheck. Medications & HM reviewed. States since he was in the hospital back in the fall his breathing is still not as good as he thinks it should be. documented in this encounter Plan of Treatment Upcoming Encounters Date Type Department Care Team (Latest Contact Info) Description 05/07/2023 9:30 AM EST Laboratory Laboratory [facility] [address] [facility] [place], [place] [address] [facility] [address] [facility] [place], [place] [address] Chronic atrial fibrillation (HCC); Encounter for long-term (current) use of medications; [employer] Other*[id number]; Acute heart failure with preserved ejection fraction (HCC); Pure hypercholesterolemia 07/16/2023 7:15 AM EDT Cardiac Studies Cardiac Studies, [facility] [address] [facility] [place] [address] 09/10/2023 8:30 AM EDT Office Visit Cardiology, [facility] [address] [facility] [place] [address] Anahy Saunders PA-C [address] [facility] [place] [address] 12/03/2023 8:40 AM EDT Office Visit Family Practice [facility] [address] [facility] [address] [place], [place] [address] Alejandro Reddy, [address] [facility] [place], [place] [address] Pending Results Name Type Priority Associated Diagnoses Date /Time LIPID PANEL WITH DIRECT LDL IF TG IS HIGH Lab Routine Acute heart failure with preserved ejection fraction (HCC) Pure hypercholesterolemia 05/07/2023 9:07 AM EST COMPREHENSIVE METABOLIC PANEL Lab Routine Acute heart failure with preserved ejection fraction (HCC) Pure hypercholesterolemia 05/07/2023 9:07 AM EST BNP, NT-PRO Lab Routine Acute heart failure with preserved ejection fraction (HCC) 05/07/2023 9:07 AM EST Scheduled Orders Name Type Priority Associated Diagnoses Orde r Schedule LIPID PANEL WITH DIRECT LDL IF TG IS HIGH Lab Routine Acute heart failure with preserved ejection fraction (HCC) Pure hypercholesterolemia Expected: 05/07/2023, Expires: 05/06/2024 COMPREHENSIVE METABOLIC PANEL Lab Routine Acute heart failure with preserved ejection fraction (HCC) Pure hypercholesterolemia Expected: 05/07/2023 (Approximate), Expires: 05/06/2024 ECHO, COMPLETE (2D), TRANS-THORACIC Echocardiology Routine Paroxysmal atrial fibrillation (HCC) Acute heart failure with preserved ejection fraction (HCC) SOB (shortness of breath) on exertion Expected: 05/07/2023, Expires: 06/06/2025 BNP, NT-PRO Lab Routine Acute heart failure with preserved ejection fraction (HCC) Expected: 05/07/2023 (Approximate), Expires: 05/06/2024 Scheduled Procedures Name Priority Associated Diagnoses Date/Ti me COLONOSCOPY FLEXIBLE PROXIMA L DIAGNOSTIC Recall Special screening for malignant neoplasms, colon Scheduled Referrals Name Type Priority Associated Diagnoses Orde r Schedule CARDIOLOGY REFERRAL OP Referral Within 30 days (routine) Paroxysmal atrial fibrillation (HCC) Acute heart failure with preserved ejection fraction (HCC) SOB (shortness of breath) on exertion Ordered: 05/07/2023 Health Maintenance Due Date Last Done Comments [...] as of this encounter Visit Diagnoses Diagnosis Pure hypercholesterolemia- Primary Paroxysmal atrial fibrillation (HCC) Atrial fibrillation Acute heart failure with preserved ejection fraction (HCC) Idiopathic chronic gout of multiple sites without tophus Chronic gouty arthropathy without mention of tophus (tophi) SOB (shortness of breath) on exertion Shortness of breath Chronic atrial fibrillation (HCC) Atrial fibrillation Encounter for long-term (current) use of medications Encounter for long-term (current) use of other medications [employer] Other*[id number] Acute heart failure with preserved ejection fraction (HCC) Pure hypercholesterolemia documented in this encounter Advance Directives Documents on File Type Date Recorded Patient [employer] Expl anation Advance Directives and Living Will [...] and were consensually agreed upon. Care Teams Physician Advisor Relationship Specialty Start Date End Date Alejandro Reddy DO [address] [place] [address] PCP - General Family Medicine 04/05/17 documented as of this encounter
--- OUTSIDE RECORDS SUMMARY | 2023-05-16 09:40 | External Medical Summary | Summary of Care ---
Author Name Unknown Organization [facility] Address [address] [place] [address] Phone [phone] Care Team Providers Care Property Adjuster Name Role Phone Alejandro Reddy DO Primary Care Provider [phone] Reason for Visit * Reason Onset Date Comments Hospital Follow-Up Medication Administration 12/07/2022 Flu an d/or Pneumo Inj Encounter Details Date Type Department Care Team Description 12/07/2022 Office Visit Family Practice [facility] [place] [address] [facility] [place] [address] Alejandro Reddy DO [address] [facility] [place] [address] Chronic atrial fibrillation (HCC)*; Need for prophylactic vaccination and inoculation against influenza Allergies No known active allergiesdocumented as of this encounter (statuses as of 12/07/2022) Medications Medication Sig Dispensed Refills Start Date End Date Status EXCEDRIN EXTRA STRENGTH 250-250-65 MG PO TABS takes daily for sinus problems 0 Active CLARITIN 10 MG PO CAPS None Entered 0 Active Lisinopril 40 MG Oral Tablet Take 1 Tablet by mouth in the morning. 0 Active Finasteride 5 MG Oral Tablet (Proscar) Take 1 Tablet by mouth in the morning. 90 Tablet 3 03/23/19 23 Active Omeprazole 20 MG Oral Capsule Delayed Release (PriLOSEC)Indications:Ga stroesophageal reflux disease without esophagitis take 1 capsule by mouth once daily 1 hour before THE FIRST MEAL OF THE DAY 90 Capsule 3 07/06/19 23 Active Atorvastatin Calcium 10 MG Oral Tablet (Lipitor)Indications:Pur e hypercholesterolemia Take 1 Tablet by mouth in the morning. 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 90 Tablet 3 10/03/19 23 Active Metoprolol Succinate ER 50 MG Oral Tablet Extended Release 24 Hour (toPROL XL)Indications:Chronic atrial fibrillation (HCC) Take 1 Tablet by mouth in the morning and 1 Tablet before bedtime. 60 Tablet 5 12/08/19 23 Active Eliquis 5 MG Oral TabletIndications:Chroni c atrial fibrillation (HCC) Take 1 Tablet by mouth in the morning and 1 Tablet before bedtime. 60 Tablet 5 12/08/19 23 Active Furosemide 20 MG Oral Tablet (Lasix)Indications:Chron ic atrial fibrillation (HCC) Take 1 Tablet by mouth in the morning and 1 Tablet at noon and 1 Tablet before bedtime. 15 Tablet 5 12/08/19 23 Active Indomethacin 50 MG Oral CapsuleIndications:Idiop athic chronic gout without tophus, unspecified site take 1 capsule by mouth three times a day IF NEEDED 90 Capsule 1 10/03/19 23 023 Discontinued Eliquis 5 MG Oral Tablet Take 1 Tablet by mouth in the morning and 1 Tablet before bedtime. 0 11/24/19 23 023 Discontinued(Re fill) Furosemide 20 MG Oral Tablet (Lasix) Take 1 Tablet by mouth in the morning and 1 Tablet at noon and 1 Tablet before bedtime. 0 11/23/19 23 023 Discontinued(Re fill) Metoprolol Succinate ER 50 MG Oral Tablet Extended Release 24 Hour (toPROL XL) Take 1 Tablet by mouth in the morning and 1 Tablet before bedtime. 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 Pure hypercholesterolemia 09/06/2017 History of nonmelanoma skin cancer 04/05 Overview: BCC right upper lip 05/16, 07/20 HTN, goal below 140/90 07/06/2013 Gout 07/06/2013 documented as of this encounter (statuses as of 12/07/2022) Resolved Problems Problem Noted Date Resolved Date Dermatitis of both ear canals 11/26/2016 Epistaxis 11/26/2016 03/22/2017 History of basal cell carcinoma 09/18/2011 04/05/2017 Overview: right upper lip 05/16 documented as of this encounter (statuses as of 12/07/2022) Immunizations Name Administration Dates Next Due COVID-19 mRNA, LNP-s, No Pre serve, 2-Dose Series (Moderna) 02/14/2021,05/18/2020,04/07/2020 Covid-19, Mrna, Lnp-s, Pf, B ivalent, 30 Mcg, IM, 12 yrs and above (Pfizer) 02/23/2022 Pneumococcal Conjugate Vacc, 13 Valent (Prevnar) 11/18/2015 Pneumococcal Polysaccharide PPV23 (Pneumovax) 01/09/2013 SEASONAL INFLUENZA, PF, 6 M & Above, IM , (FLULAVAL or FLUZONE) 01/07/2018 Season Influenza, Quad, PF, Adjuvanted, 65+ Yrs, IM (FLUAD) 11/27/2019 Seasonal Influenza, Quadriva lent Hd (Fluzone Hd) [...] = 0.6 oz p ure alcohol) occ Sex Assigned at Date Recorded Not on file Job Start Date Occupation Industry Not on file Not on file Not on file documented as of this encounter Last Filed Vital Signs Vital Sign Reading Time Taken Comments Blood Pressure 122/74 12/07/2022 11:07 AM EDT Pulse 90 12/07/2022 11:07 AM EDT Temperature 36.3 C (97.3 F) 12/07/2022 11:07 AM E DT Respiratory Rate 16 12/07/2022 11:07 AM EDT Oxygen Saturation 99% 12/07/2022 11:07 AM EDT Inhaled Oxygen Concentration - - Weight 96.3 kg (212 lb 6.4 oz) 12/07/2022 11:07 AM EDT Height - - Body Mass Index 32.83 11/20/2022 9:38 AM EDT documented in this encounter Progress Notes * Alejandro Reddy, - 12/07/2022 11:15 AM EDT Subjective: Bautista Villarreal is a 87 year old male. Chief Complaint Patient presents with Hospital Follow-Up Medication Administration Flu and/or Pneumo Inj HPI: PT to the hospital on 11/20 for new onset AFib. He was sent there from our office. He was feeling SOB and epigastric pain for a week. In the ER his HR was 137 AFib in RVR and his troponin was elevated. He was given a diltiazem bolus and a drip. His heart rate improved and he was converted t a beta-mike. He has a CHADS2-VASc score of 5 and was put on Eliquis. He is on metoprolol succinate 50 mg BID. He is also on lasix 20 mg 3/week. He is scheduled with cardio in 2 weeks. Marsing like a knot in the botom of his chest. Struggles to get deep breaths. That feeling has gone away now. Breathing not quite 100% but still better. Purpose of Eliquis discussed. Will check blood count today. PMHx, meds, and allergies reviewed Patient Active Problem List Diagnosis Code HTN, goal below 140/90 I10 Gout M10.9 History of nonmelanoma skin cancer Z85.828 Pure hypercholesterolemia E78.00 BPH with obstruction/lower urinary tract symptoms N40.1, N13.8 Gastroesophageal reflux disease without esophagitis K21.9 Hematuria, gross R31.0 Calculus of kidney N20.0 Bladder stone N21.0 Atrial fibrillation with rapid ventricular response (HCC) I48.91 Current Outpatient Medications Medication Sig Dispense Refill EXCEDRIN EXTRA STRENGTH 250-250-65 MG PO TABS takes daily for sinus problems CLARITIN 10 MG PO CAPS None Entered Lisinopril 40 MG Oral Tablet Take 1 Tablet by mouth in the morning. Finasteride 5 MG Oral Tablet (Proscar) Take 1 Tablet by mouth in the morning. 90 Tablet 3 Omeprazole 20 MG Oral Capsule Delayed Release (PriLOSEC) take 1 capsule by mouth once daily 1 hour before THE FIRST MEAL OF THE DAY 90 Capsule 3 Atorvastatin Calcium 10 MG Oral Tablet (Lipitor) Take 1 Tablet by mouth in the morning. 90 Tablet 3 Allopurinol 300 MG Oral Tablet (Zyloprim) Take 1 Tablet by mouth in the morning. 90 Tablet 3 Eliquis 5 MG Oral Tablet Take 1 Tablet by mouth in the morning and 1 Tablet before bedtime. Furosemide 20 MG Oral Tablet (Lasix) Take 1 Tablet by mouth in the morning and 1 Tablet at noon and1 Tablet before bedtime. Metoprolol Succinate ER 50 MG Oral Tablet Extended Release 24 Hour (toPROL XL) Take 1 Tablet by mouth in the morning and 1 Tablet before bedtime. Indomethacin 50 MG Oral Capsule take 1 capsule by mouth three times a day IF NEEDED 90 Capsule 1 No current facility-administered medications for this visit. Review of patient's allergies indicates: No Known Allergies OBJECTIVE: BP 122/74 | Pulse 90 | Temp 36.3 C (97.3 F) (Tympanic) | Resp 16 | Wt 96.3 kg (212 lb 6.4 oz) |SpO2 99% | BMI 32.83 kg/m | BSA 2.14 m Estimated body mass index is 32.83 kg/m as calculated from the following: Height as of 11/20/22: 1.713 m (5' 7.44"). Weight as of this encounter: 96.3 kg (212 lb 6.4 oz). BP Readings from Last 3 Encounters: 12/07/22 122/74 11/20/22 126/82 10/02/22 130/84 Wt Readings from Last 3 Encounters: 12/07/22 96.3 kg (212 lb 6.4 oz) 11/20/22 98.9 kg (218 lb) 10/02/22 99.1 kg (218 lb 6.4 oz) ROS: Negative except for [...] no joint deformities, effusion, or inflammation ASSESSMENT/Plan Chronic atrial fibrillation (HCC) (Primary) - BASIC METABOLIC PANEL; Future; Expected date: 12/07/2022 - CBC WITH WBC DIFFERENTIAL AND ANEMIA REFLEX WORKUP; Future; Expected date: 12/07/2022 - Metoprolol Succinate ER 50 MG Oral Tablet Extended Release 24 Hour (toPROL XL); Take 1 Tablet by mouth in the morning and 1 Tablet before bedtime. - Eliquis 5 MG Oral Tablet; Take 1 Tablet by mouth in the morning and 1 Tablet before bedtime. - Furosemide 20 MG Oral Tablet (Lasix); Take 1 Tablet by mouth in the morning and 1 Tablet at noon and 1 Tablet before bedtime. Need for prophylactic vaccination and inoculation against influenza - INFLUENZA VACC, QUAD, HIGH DOSE (FLUZONE HD) I spent a total of 30 minutes on the date of service in preparation, delivery, and documentation ofthe care provided to this patient, excluding any time spent on the performance of any procedure or separately billable services. Good discussion on medications and each one's purpose. Feeling better overall. The above was discussed and understanding was expressed. Alejandro Reddy DO * Daphne Canada LPN - 12/07/2022 11:09 AM EDT PRE - ADMINISTRATION DOCUMENTATION Are you experiencing any cold symptoms or fever? No Have you had Guillain-Humnoke Syndrome (an illness that causes paralysis) within the last 6 weeks? No Have you had the flu shot in the past? YES Have you ever had a reaction to the flu shot? No Daphne Canada LPN, 12/07/2022 11:09 AM Immunization Administration Documentation Time Out Procedure Performed: Yes Patient Identified (Ask Name/Date of ): Yes Does the patient have a fever greater than 101 degrees today? No Patient allergic to latex? No VFC Stock: No Immunization(s) verified: Yes, Immunization Name: Flu, VIS Sheet(s) given: Yes Verified Side and Site: Yes Verified Shot(s) with Parent(s)/Patient: Yes documented in this encounter Nursing Notes * Daphne Canada LPN - 12/07/2022 11:04 AM EDT Bautista Villarreal presents for hospital recheck. Medications & HM reviewed. Denies any concerns at this time documented in this encounter Plan of Treatment Upcoming Encounters Date Type Specialty Care Team Description 12/21/2022 Office Visit Cardiology Anahy Saunders PA-C [address] [place] [address] [place] [id number] 05/07/2023 Office Visit Family Medicine Alejandro Reddy, DO [address], [place] [id number] Scheduled Orders Name Type Priority Associated Diagnoses Orde r Schedule BASIC METABOLIC PANEL Lab Routine Chronic atrial fibrillation (HCC) Expected: 12/07/2022 (Approximate), Expires: 12/07/2023 CBC WITH WBC DIFFERENTIAL AND ANEMIA REFLEX WORKUP Lab Routine Chronic atrial fibrillation (HCC) Expected: 12/07/2022 (Approximate), Expires: 12/08/2023 Scheduled Procedures Name Priority Associated Diagnoses Date/Ti me COLONOSCOPY FLEXIBLE PROXIMA L DIAGNOSTIC Recall Special screening for malignant neoplasms, colon Health Maintenance Due Date Last Done Comments Zoster Vaccines (2 of 3) 03/05/2014 01/08/2014 Depression Screening 04/04/2020 04/04/2019 DTaP,Tdap,and Td Vaccines (2 - Td or Tdap) 01/09/2024 01/08/2014 Albumin/Creatinine Ratio 02/27/2024 02/26/2021 Pneumococcal Vaccine: 65+ Years Completed 11/18/2015, 01/09/2013 COVID-19 Vaccine Completed 02/23/2022, 12/2020, 05/18/2020, Additional history exists Influenza Vaccine (FLU shot) Completed 04/2022, 02/16/2022, [...] encounter Visit Diagnoses Diagnosis Chronic atrial fibrillation (HCC)- Primary Atrial fibrillation Need for prophylactic vaccination and inoculation against influenza documented in this encounter Advance Directives Documents on File Type Date Recorded Patient Award Machine Operator Expl anation Advance Directives and Living Will [...] and were consensually agreed upon. Care Teams Property Adjuster Relationship Specialty Start Date End Date Alejandro Reddy, DO [address] [place] [address] PCP - General Family Medicine 04/05/17 documented as of this encounter
--- OUTSIDE RECORDS SUMMARY | 2023-05-16 09:40 | External Medical Summary ---
Author Name Unknown Address Unknown Organization [id number]:LABORATORY [facility] [place] - [address] [facility] [place] [address] Laboratory Report Ordering Provider Test Date Status ELIZABETH FAUSTINIVONR 05/07/2023 09:07:56 Final Observation Date Value Abnormality Reference (Units ) Status Triglyceride 05/07/2023 09:07:56 74 <=174 ( mg/dL) Final Triglyceride Reference Range s (mg/dL):
<150 Acceptable
150-174 Borderline high
175-499 High
>=500 Very high Cholesterol 05/07/2023 09:07:56 122 <200 (mg /dL) Final Total Cholesterol Reference Ranges (mg/dL):
<200 Desirable
200-239 Borderline high
>=240 High HDL 05/07/2023 09:07:56 44 >39 (mg/dL ) Final HDL Cholesterol Reference Ra nges (mg/dL):
>=60 High (Desirable)
<50 Low (Undesirable) For Females
<40 Low (Undesirable) For Males NON-HDL CHOLESTEROL 05/07/2023 09:07:56 78 <=159 (mg/dL) Final Non-HDL Cholesterol Referenc e Range (mg/dL):
<100 Target level for high risk ASCVD patient
<130 Optimal for general population
130-159 Near optimal for general population
160-189 Borderline High
190-219 High
>=220 Very High LDL, (calculated) 05/07/2023 09:07:56 63 <= 129 (mg/dL) Final LDL Cholesterol Reference Ra nges (mg/dL):
<70 Target level for high risk ASCVD patient
<100 Optimal for general population
100-129 Near optimal for general population
130-159 Borderline high
160-189 High
>=190 Very high Performing Location LAB[facility]ATORY [facility] [place] - [address] [facility] [place] [address]
--- OUTSIDE RECORDS SUMMARY | 2023-05-16 09:40 | External Medical Summary ---
Author Name Unknown Address Unknown Organization [id number]:LABORATORY [facility] [place] - [address] [place] [address] Laboratory Report Ordering Provider Test Date Status JULIUS MCKEON 05/07/2023 09:07:56 Final Observation Date Value Abnormality Reference (Units ) Status Vitamin B12 05/07/2023 09:07:56 563 150-3512 (pg/mL) Final Performing Location LABORATORY [facility] - [address] [place] [address]
--- OUTSIDE RECORDS SUMMARY | 2023-05-16 09:40 | External Medical Summary ---
Author Name Unknown Address Unknown Organization [id number]:LABORATORY [facility] [place] - [address] [place] [address] Laboratory Report Ordering Provider Test Date Status ZAINAB FAUSTIN 05/07/2023 09:07:56 Final Exclude Heart Failure: <300 pg/mL
Diagnose Heart Failure:
Age <50 yr: >450 pg/mL
50-75 yr: >900 pg/mL
>75 yr: >1800 pg/mL
GFR is 30-59 mL/min: >1200 pg/mL or Age- adjusted values
GFR <30 mL/min: do not use, not reliable

Prognostic threshold: 1000 pg/mL Observation Date Value Abnormality Reference (Units ) Status BNP, Pro-hormone 05/07/2023 09:07:56 2415 Above high no rmal <300 (pg/mL) Final Performing Location LABORATORY [facility] [place] - [address] [place] [address]
--- OUTSIDE RECORDS SUMMARY | 2023-05-16 09:40 | External Medical Summary ---
Author Name Unknown Address Unknown Organization [id number]:LABORATORY [facility] [place] - [address] [place] [address] Laboratory Report Ordering Provider Test Date Status ROXIE,NEWROBERTO 05/07/2023 09:07:56 Final Observation Date Value Abnormality Reference (Units ) Status WBC, Total 05/07/2023 09:07:56 9.31 4.00-10.8 0 (K/uL) Final RBC 05/07/2023 09:07:56 4.63 4.50-5.25 (M/uL) Final Hemoglobin 05/07/2023 09:07:56 14.8 14.0-16.8 (g/dL) Final Anemia reflex testing trigge rs on a HGB < 12.0 for Females and HGB < 13.0 for Males in accordance with the WHO Anemia Guidelines
Anemia reflex testing triggers on a HGB < 12.0 for Females and HGB < 13.0 for Males in accordance with the WHO Anemia Guidelines HCT 05/07/2023 09:07:56 45.1 40.0-48.4 (%) Final MCV 05/07/2023 09:07:56 97.4 82.0-99.5 (fL) Final MCH 05/07/2023 09:07:56 32.0 27.0-34.0 (pg) Final MCHC 05/07/2023 09:07:56 32.8 32.0-36.0 (g/dL) Final RDW 05/07/2023 09:07:56 13.6 11.5-15.5 (%) Final Platelets 05/07/2023 09:07:56 180 140-400 (K /uL) Final MPV 05/07/2023 09:07:56 10.8 6.6-11.1 ( fL) Final Nucleated erythrocytes/100 leukocytes [Ratio] in Blood by Automated count 05/07/2023 09:07:56 0 <=0 (/100 WBCs) Fi [facility] Performing Location LABORATORY [facility] - [address] [facility] [address]
--- OUTSIDE RECORDS SUMMARY | 2023-05-16 09:40 | External Medical Summary ---
Author Name Unknown Address Unknown Organization K09:LABORATORY [facility] - [address] [place] [address] Laboratory Report Ordering Provider Test Date Status ZAINAB FAUSTIN 05/07/2023 09:07:56 Final Observation Date Value Abnormality Reference (Units ) Status BUN 05/07/2023 09:07:56 28 Above high normal 6-20 (mg/dL) Final Creatinine 05/07/2023 09:07:56 1.1 0.6-1.2 (mg/dL) Final Glomerular filtration rate/1.73 sq M.predicted [Volume Rate/Area] in Serum, Plasma or Blood by Creatinine-based formula (CKD-EPI) 05/07/2023 09:07:56 67 >=60 (mL/min) Final eGFR is calculated based on the CKD-EPI 2020 equation SODIUM 05/07/2023 09:07:56 142 135-146 (m mol/L) Final Potassium 05/07/2023 09:07:56 4.6 3.5-5.1 (m mol/L) Final Cl 05/07/2023 09:07:56 105 98-107 (mm ol/L) Final CO2 05/07/2023 09:07:56 25 22-32 (mmo l/L) Final Anion gap 05/07/2023 09:07:56 12 7-15 (mmol /L) Final Glucose 05/07/2023 09:07:56 113 70-120 (mg /dL) Final Albumin 05/07/2023 09:07:56 4.5 3.8-5.0 (g /dL) Final AST (Aspartate aminotransferase) 05/07/2023 09:07:56 35 10-50 (U/L) Final Alk Phos 05/07/2023 09:07:56 93 35-130 (U/ L) Final Bilirubin, Total 05/07/2023 09:07:56 0.6 <=1 .2 (mg/dL) Final Calcium 05/07/2023 09:07:56 9.8 8.4-10.2 ( mg/dL) Final Protein 05/07/2023 09:07:56 7.0 6.0-8.3 (g /dL) Final ALT (Alanine aminotransferase) 05/07/2023 09:07:56 46 10-50 (U/L) Final Performing Location [facility] [address] [place] [address]
--- OUTSIDE RECORDS SUMMARY | 2023-05-16 09:40 | External Medical Summary | Summary of Care ---
Author Name Unknown Organization [facility] Address [address] [facility] [place] [address] Phone [phone] Care Team Providers Care Cutting Department Supervisor Name Role Phone Alejandro Reddy DO Primary Care Provider [phone] Reason for Visit * Reason Comments Short of Breath Encounter Details Date Type Department Care Team Description 11/20/2022 Office Visit Family Practice [facility] Lata [place] [address] [facility] [place] [address] Crystal Bo MD 200 [facility] [place] [address] Atrial fibrillation with rapid ventricular response (HCC)*; Shortness of breath; Abdominal bloating; Gastroesophageal reflux disease, unspecified whether esophagitis present; HTN, goal below 140/90 Allergies No known active allergiesdocumented as of this encounter (statuses as of 11/20/2022) Medications Medication Sig Dispensed Refills Start Date [...] mouth in the morning. 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 90 Tablet 3 10/02/2022 Active documented as of this encounter (statuses as of 11/20/2022) Active Problems Problem Noted Date Atrial fibrillation [...] as of this encounter (statuses as of 11/20/2022) Resolved Problems Problem Noted Date Resolved Date Dermatitis of both ear canals 11/26/2016 Epistaxis 11/26/2016 03/22/2017 History of basal cell carcinoma 09/18/2011 04/05/2017 Overview: right upper lip 05/16 documented as of this encounter (statuses as of 11/20/2022) Immunizations Name Administration Dates Next Due COVID-19 mRNA, LNP-s, No Pre serve, 2-Dose Series (Moderna) 02/14/2021,05/18/2020,04/07/2020 Covid-19, Mrna, Lnp-s, Pf, B ivalent, 30 Mcg, IM, 12 yrs and above (Pfizer) 02/23/2022 Pneumococcal Conjugate Vacc, 13 Valent (Prevnar) 11/18/2015 Pneumococcal Polysaccharide PPV23 (Pneumovax) 01/09/2013 Season Influenza, Quad, PF, Adjuvanted, 65+ Yrs, IM (FLUAD) 11/27/2019 Seasonal Influenza, PF, 6 mo ns & Above, IM , (Flulaval) 01/07/2018 Seasonal Influenza, Quadriva lent Hd (Fluzone Hd) 02/16/2022 Seasonal Influenza, Quadriva lent, No Preserve, IM [...] Sign Reading Time Taken Comments Blood Pressure 126/82 11/20/2022 9:38 AM EDT Pulse 130 11/20/2022 9:38 AM EDT Temperature 37 C (98.6 F) 11/20/2022 9:38 AM EDT Respiratory Rate - - Oxygen Saturation 99% 11/20/2022 9:38 AM EDT Inhaled Oxygen Concentration - - Weight 98.9 kg (218 lb) 11/20/2022 9:38 AM EDT Height 171.3 cm (5' 7.44") 11/20/2022 9:38 AM ED T Body Mass Index 33.7 11/20/2022 9:38 AM EDT documented in this encounter Progress Notes * Crystal Bo MD - 11/20/2022 9:42 AM EDT Subjective Chief Complaint Patient presents with Short of Breath HPI: Bautista Villarreal is a 87 year old male. The following issues were addressed today: Has had pressure in his epigastric area and dyspnea on exertion for the past week or so. Feels like it is difficult to get a deep breath, "like there is not enough room." Having some bloating. Has occasional heartburn symptoms but typically well-controlled with omeprazole. He denies nausea, vomiting, constipation, diarrhea, or blood in the stool. Appetite has been good. He has lost 6lb since March but states this was intentional. Denies new/worsening cough, wheezing, chest pain, or palpitations. Review of Systems: See HPI Objective BP 126/82 | Pulse 130 | Temp 37 C (98.6 F) (Tympanic) | Ht 1.713 m (5' 7.44") | Wt 98.9 kg (218lb) | SpO2 99% | BMI 33.70 kg/m | BSA 2.17 m General: Well-appearing, no acute distress Cardiovascular: Tachycardic, irregularly irregular rhythm Respiratory: Good respiratory effort, breath sounds equal and clear to auscultation bilaterally Abdomen: Mildly distended, non-tender, normoactive bowel sounds Extremities: No edema Neurological: Alert and oriented Psychiatric: Appropriate mood and affect Assessment & Plan Atrial fibrillation with rapid ventricular response (HCC) (Primary) Shortness of breath - EKG Abdominal bloating Gastroesophageal reflux disease, unspecified whether esophagitis present Well-controlled. Continue current medication(s). HTN, goal below 140/90 BP stable. Continue current medication(s). EKG shows new onset rapid atrial fibrillation with HR 133 today in the office. Recommendation was made for him to go to the emergency room. He declined ambulance transportation and is going to call his daughter who lives nearby. Nursing to notify [facility]. A-fib with RVR most likely causing his dyspnea. Unclear why he is having abdominal bloating, but could consider abdominal ultrasound on discharge if not done while inpatient. Defer additional labs and imaging for now. Follow-up after hospital discharge. This note was electronically signed by Crystal Bo MD documented in this encounter Procedure Notes * Cesar Kimball MD - 11/20/2022 9:52 AM EDTAssociated Order(s): EKG REASON FOR STUDY: SOB CONCLUSIONS: Atrial fibrillation with rapid ventricular response Low voltage QRS, consider pulmonary disease, pericardial effusion, or normal variant Nonspecific ST abnormality Abnormal QRS-T angle, consider primary T wave abnormality Abnormal ECG When compared with ECG of 18-APR-2021 12:06, Atrial fibrillation has replaced Sinus rhythm Vent. rate has increased BY 76 BPM The axis Shifted right Ventricular Rate: 133 Atrial Rate: 156 QRS Duration: 100 QT/QTc: 324/482 ms P-R-T [place]: 0 : 65 : -29 degrees documented in this encounter Nursing Notes * BRINDA Pablo - 11/20/2022 9:37 AM EDT Patient presents in office due to onset of SOB in the past week or 2. Denies lightheadedness, dizziness or chest pain. documented in this encounter Plan of Treatment Upcoming Encounters Date Type Specialty Care Team Description 05/07/2023 Office Visit Family Medicine Alejandro Reddy, DO [address] [place] [address] Scheduled Procedures Name Priority Associated Diagnoses Date/Ti me COLONOSCOPY FLEXIBLE PROXIMA L DIAGNOSTIC Recall Special screening for malignant neoplasms, colon Health Maintenance Due Date Last Done Comments Zoster Vaccines (2 of 3) 03/05/2014 01/08/2014 Depression Screening 04/04/2020 04/04/2019 Influenza Vaccine (FLU shot) (#1) 2022 02/16/2022, 02/19/2021, 11/27/2019, Additional history exists DTaP,Tdap,and Td Vaccines (2 - Td or Tdap) 01/09/2024 01/08/2014 Albumin/Creatinine Ratio 02/27/2024 02/26/2021 Pneumococcal Vaccine: 65+ Years Completed 11/18/2015, 01/09/2013 COVID-19 Vaccine Completed 02/23/2022, 12/2020, 05/18/2020, Additional history exists GARDASIL-HPV IMMUNIZATION SERIES Aged [...] Not on filedocumented as of this encounter Procedures Procedure Name Priority Date/Time Associated Diagnosis Comments WA ECG ROUTINE ECG W/LEAST 12 LDS I&R ONLY Routine 11/20/2022 9:52 AM EDT Shortness of breath documented in this encounter Results * EKG (11/20/2022 9:52 AM EDT) 11/20/2022 9:52 AM EDT Procedure Note Cesar Kimball MD - 11/20/2022 9:52 AM EDT REASON FOR STUDY: SOB CONCLUSIONS: Atrial fibrillation with rapid ventricular response Low voltage QRS, consider pulmonary disease, pericardial effusion, ornormal variant Nonspecific ST abnormality Abnormal QRS-T angle, consider primary T wave abnormality Abnormal ECG When compared with ECG of 18-APR-2021 12:06, Atrial fibrillation has replaced Sinus rhythm Vent. rate has increased BY 76 BPM The axis Shifted right Ventricular Rate: 133 Atrial Rate: 156 QRS Duration: 100 QT/QTc: 324/482 ms P-R-T [place]: 0 : 65 : -29 degrees Crystal Bo MD EKG [facility] documented in this encounter Visit Diagnoses Diagnosis Atrial fibrillation with rapid ventricular response (HCC)- Primary Atrial fibrillation Shortness of breath Abdominal bloating Flatulence, eructation, and gas pain Gastroesophageal reflux disease, unspecified whether esophagitis present HTN, goal below 140/90 Unspecified essential hypertension documented in this encounter Advance Directives Documents on File Type Date 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 Care Teams Cutting Department Supervisor Relationship Specialty Start Date End Date Alejandro Reddy, DO [address] [place] [address] PCP - General Family Medicine 04/05/17 documented as of this encounter
--- OUTSIDE RECORDS SUMMARY | 2023-05-16 09:40 | External Medical Summary | Summary of Care ---
Author Name Unknown Organization [facility] Address [address] [facility] [place] [address] Phone [phone] Care Team Providers Care Training And Development Head Name Role Phone Alejandro Reddy DO Primary Care Provider [phone] Reason for Visit * Reason Comments Hospital Follow-Up Encounter Details Date Type Department Care Team Description 12/21/2022 Office Visit Cardiology, [facility] [address] [facility] [place] [address] Anahy Saunders PA-C [address] [place] [id number] Paroxysmal atrial fibrillation (HCC)*; Acute heart failure with preserved ejection fraction (HCC); HTN, goal below 130/80 Allergies No known active allergiesdocumented as of this encounter (statuses as of 12/21/2022) Medications Medication Sig Dispensed Refills Start Date [...] in the morning. 90 Tablet 3 3 Active Omeprazole 20 MG Oral Capsule Delayed Release (PriLOSEC)Indications:Gas troesophageal reflux disease without esophagitis take 1 capsule by mouth once daily 1 hour before THE FIRST MEAL OF THE DAY 90 Capsule 3 3 Active Atorvastatin Calcium 10 MG Oral Tablet (Lipitor)Indications:Pure hypercholesterolemia Take 1 Tablet by mouth in the morning. 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 90 Tablet 3 3 Active Metoprolol Succinate ER 50 MG Oral Tablet Extended Release 24 Hour (toPROL XL)Indications:Chronic atrial fibrillation (HCC) Take 1 Tablet by mouth in the morning and 1 Tablet before bedtime. 60 Tablet 5 3 Active Eliquis 5 MG Oral TabletIndications:Chronic atrial fibrillation (HCC) Take 1 Tablet by mouth in the morning and 1 Tablet before bedtime. 60 Tablet 5 3 Active Furosemide 20 MG Oral Tablet (Lasix) Take 1 Tablet by mouth once a day on Wednesday, Wednesday, and Wednesday only. Take 1 tablet Mondays, Wednesdays, and Fridays in AM 0 3 Active Furosemide 20 MG Oral Tablet (Lasix)Indications:Chroni c atrial fibrillation (HCC) Take 1 Tablet by mouth in the morning and 1 Tablet at noon and 1 Tablet before bedtime. 15 Tablet 5 3 12/22/19 23 Discontinu ed(Refill) documented as of this encounter (statuses as of 12/21/2022) Active Problems Problem Noted Date Atrial fibrillation [...] as of this encounter (statuses as of 12/21/2022) Resolved Problems Problem Noted Date Resolved Date Dermatitis of both ear canals 11/26/2016 Epistaxis 11/26/2016 03/22/2017 History of basal cell carcinoma 09/18/2011 04/05/2017 Overview: right upper lip 05/16 documented as of this encounter (statuses as of 12/21/2022) Immunizations Name Administration Dates Next Due COVID-19 [...] Sign Reading Time Taken Comments Blood Pressure 132/84 12/21/2022 9:53 AM EDT Pulse 68 12/21/2022 9:53 AM EDT Temperature - - Respiratory Rate 16 12/21/2022 9:53 AM EDT Oxygen Saturation - - Inhaled Oxygen Concentration - - Weight 96.6 kg (213 lb) 12/21/2022 9:53 AM EDT Height - - Body Mass Index 32.93 11/20/2022 9:38 AM EDT documented in this encounter Progress Notes * Anahy Saunders PA-C - 12/21/2022 10:00 AM EDT 12/21/2022 Cardiology Follow Up Past Medical History: Atrial fibrillation with rapid ventricular rate with resultant acute decompensated diastolic heart failure- 11/2022 Hypertension ROBERT GERD Gout HPI: Bautista Villarreal is a 87 year old male who presents for hospital follow up. He presented to [facility] 11/20/22, sent from PCP office, with shortness of breath and epigastric pain, found to be in new onset afib w/RVR and mild diastolic heart failure, troponin elevated. Admitted andcardiology consulted, heart rate improved after starting diltiazem IV. He was discharged 11/22/22 onmetoprolol succinate, eliquis, and furosemide. Since hospitalization has been feeling well. Denies chest pain, palpitations, shortness of breath, edema, PND, orthopnea, lightheadedness, syncope. Denies bleeding issues. No exertional symptoms. 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 Compliant with all medications. Is eating less and trying to lose weight. REVIEW OF SYSTEMS: See HPI for pertinent positives. All others negative other than those noted in the HPI. CONSTITUTIONAL: No change in weight, No weakness, No fatigue and No fevers, No sweats or chills. PULMONARY: No cough, sputum, or hemoptysis, No wheezing, No shortness of breath and No recent change in breathing. CARDIOVASCULAR: No chest pain, No dyspnea on exertion, No edema, No palpitations and No syncope. GASTROINTESTINAL: No abdominal pain, No change in bowel habits, No significant heartburn, No nausea, No vomiting, No diarrhea, No constipation, No blood in stools or black tarry stools. No dysphagia. HEMATOLOGIC: No abnormal bleeding and No bruising. NEUROLOGICAL: Normal balance, No headaches and No weakness. Review of patient's allergies indicates: No Known [...] 1 Tablet before bedtime. 60 Tablet 5 Furosemide 20 MG Oral Tablet (Lasix) Take 1 Tablet by mouth once a day on Wednesday, Wednesday, and Wednesday only. Take 1 tablet Mondays, Wednesdays, and Fridays in AM No current facility-administered medications for this visit. Past Medical History: Diagnosis Date Diverticulosis of colon (without mention of hemorrhage) 08/07/2013 sigmoid colon Obstructive sleep apnea 03/02/07 Family History Problem Relation Age of Onset Cancer Sister Heart Disorder Father 60 [place] Heart Disorder Brother 67 CABG, [place] Stroke None Thyroid Disorder None Glaucoma None Diabetes None Social History Socioeconomic History Marital status: Tobacco Use Smoking status: Never Smokeless tobacco: Never Vaping Use Vaping Use: Never used Substance and Sexual Activity Alcohol use: Yes Alcohol/week: 8.3 standard drinks Types: 10 12 oz of beer per week Comment: occ Drug use: No Sexual activity: Not Currently OBJECTIVE/PHYSICAL EXAMINATION: BP 132/84 | Pulse 68 | Resp 16 | Wt 96.6 kg (213 lb) | BMI 32.93 kg/m | BSA 2.14 m General: No acute distress. A+Ox3. HEENT: Normocephalic. Atraumatic. PERRL. EOMI. Conjunctiva and sclera clear. NECK: No carotid bruits. No JVD. Carotid upstrokes are brisk. Heart: irregular rhythm. S1 and S2 noted. No murmur. No rubs or gallops. PMI non displaced. Lungs: Clear to auscultation. No wheezes. No rhonchi. No rales. Abdomen: Normal bowel sounds. Soft. Nontender. No masses or organomegaly. No abdominal bruits. Extremities: No edema. No clubbing or cyanosis. Pulses: radial=2/4, posterior tibial=2/4, dorsalis pedis = 2/4. NEURO: No focal deficits. PSYCH: Appropriate affect and insight. DATA Labs & Imaging Reviewed Below: EKG 12/21/22 Atrial fibrillation, rate 90 bpm ASSESSMENT/PLAN: 87 year old year old male 1. Paroxysmal atrial fibrillation (HCC) - rate controlled - [id number] score of 5 (age, CHF, HTN, aortic plaque) - continue Eliquis 5 mg twice daily - continue metoprolol succinate 50 mg twice daily 2. Acute heart failure with preserved ejection fraction (HCC) - resultant from afib with RVR at recent hospitalization 11/2022 - euvolemic on exam - continue furosemide 20 mg three days per week (MWF) 3. HTN, goal below 130/80 - controlled, continue lisinopril DISPOSITION: Follow up 3 months or sooner if symptoms worsen/fail to improve. All questions were answered to the patients satisfaction. Patient advised to report to ED with any and all emergencies. The patient agrees to the above plan and will call with additional questions or concerns. Anahy Saunders PA-C Cardiology, [address] [address] I spent a total of 35 minutes on the date of service in preparation, delivery, and documentation ofthe care provided to Bautista Villarreal excluding any time spent in the performance of separately billedservices. This chart was completed in part utilizing [employer] Speech Voice Recognition Software. Grammatical errors, random word insertions, pronoun errors, and incomplete sentences are an occasional consequence of this system due to software limitations, ambient noise, and hardware issues. Any formal questions or concerns about the content, text, or information contained within the body of this dictation should be directly addressed to the provider for clarification. documented in this encounter Procedure Notes * Blair Jones DO - 12/21/2022 10:02 AM EDTAssociated Order(s): EKG REASON FOR STUDY: new onset a fib 11/20/2022; HTN CONCLUSIONS: Atrial fibrillation Otherwise normal ECG When compared with ECG of 20-NOV-2022 09:52, No significant change was found Ventricular Rate: 90 Atrial Rate: 86 QRS Duration: 102 QT/QTc: 376/459 ms P-R-T [place]: 0 : 10 : -13 degrees documented in this encounter Nursing Notes * Edmund Mobley RN - 12/21/2022 9:49 AM EDT Examination Room: 3 Name: Bautista Villarreal Date of : (1935). Reason for Visit: hospital followup Interim Hospitalization(s): admitted to [facility] on 11/20 Problems/Concerns: new onset A-fib Chest Pain/SOB: denies [facility] Discussed: No [facility] is a way you can talk to your provider online through e-mail. Would you like to sign up? I can activate it for you? ALREADY ACTIVE Patient was instructed to not get up on the exam table until directed and assisted by their provider; patient is to remain seated in the chair/ wheelchair/ exam table for fall prevention and safety reasons. Patient is aware to have assistance to step down off exam table with personnel. Patient voiced full comprehension of instructions. documented in this encounter Plan of Treatment Upcoming Encounters Date Type Specialty Care Team Description 03/26/2023 Office Visit Cardiology Anahy Saunders PA-C [address] [place] [phone] 05/07/2023 Office Visit Family Medicine Alejandro Reddy DO [address] [facility] [place] [address] Scheduled Procedures Name Priority Associated Diagnoses Date/Ti [...] Procedure Name Priority Date/Time Associated Diagnosis Comments RI ECG ROUTINE ECG W/LEAST 12 LDS I&R ONLY Routine 12/21/2022 10:02 AM EDT HTN, goal below 130/80 Paroxysmal atrial fibrillation (HCC) Acute heart failure with preserved ejection fraction (HCC) documented in this encounter Results * EKG (12/21/2022 10:02 AM EDT) 12/21/2022 10:0 2 AM EDT Procedure Note Blair Jones DO - 12/21/2022 10:02 AM EDT REASON FOR STUDY: new onset a fib 11/20/2022; HTN CONCLUSIONS: Atrial fibrillation Otherwise normal ECG When compared with ECG of 20-NOV-2022 09:52, No significant change was found Ventricular Rate: 90 Atrial Rate: 86 QRS Duration: 102 QT/QTc: 376/459 ms P-R-T [place]: 0 : 10 : -13 degrees Anahy Saunders PA-C EKG [facility] documented in this encounter Visit Diagnoses Diagnosis Paroxysmal atrial fibrillation (HCC)- Primary Atrial fibrillation Acute heart failure with preserved ejection fraction (HCC) HTN, goal below 130/80 Unspecified essential hypertension documented in this encounter Advance Directives Documents on File Type Date 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 Care Teams Training And Development Head Relationship Specialty Start Date End Date Alejandro Reddy, DO [address] [place] [address] PCP - General Family Medicine 04/05/17 documented as of this encounter"
--- OUTSIDE RECORDS SUMMARY | 2023-05-16 09:40 | External Medical Summary ---
Author Name Unknown Address Unknown Organization [id number]:LABORATORY [facility] [place] - [address] [facility] [address] Laboratory Report Ordering Provider Test Date Status MEGHAN ROQUE 05/07/2023 09:07:56 Final Observation Date Value Abnormality Reference (Units ) Status MYCODE SPECIMEN-LAV 05/07/2023 09:07:56 Freezing of extracted DNA, whole blood and/or serum. Final Performing Location LABORATORY [facility] - [address] [facility] [address]
--- OUTSIDE RECORDS SUMMARY | 2023-05-16 09:40 | External Medical Summary | Summary of Care ---
Author Name Unknown Organization [facility] Address [address] [place] [address] Phone [phone] Care Team Providers Care Forensic Manager Name Role Phone Alejandro Reddy DO Primary Care Provider [phone] Encounter Details Date Type Department Care Team (Late st Contact Info) Description 04/06/2023 Refill Cardiology Adam Blood [address] [place] [address] Ernie Saunders PA-C [facility] [id number] Acute heart failure with preserved ejection fraction (HCC)*; Paroxysmal atrial fibrillation (HCC); HTN, goal below 130/80 Allergies No known active allergiesdocumented as of this encounter (statuses as of 04/07/2023) Medications Medication Sig Dispensed Refills Start Date [...] Wednesday only. 40 Tablet 3 4 Active Furosemide 20 MG Oral Tablet (Lasix) Take 1 Tablet by mouth once a day on Wednesday, Wednesday, and Wednesday only. Take 1 tablet Mondays, Wednesdays, and Fridays in AM 0 3 04/07/19 24 Discontinu ed(Refill) documented as of this encounter (statuses as of 04/07/2023) Active Problems Problem Noted Date Diagnosed Date [...] as of this encounter (statuses as of 04/07/2023) Resolved Problems Problem Noted Date Diagnosed Date Resolved Date Dermatitis of both ear canals 11/26/2016 03/22/2017 Epistaxis 11/26/2016 03/22/2017 History of basal cell carcinoma 09/18/2011 04/05/2017 Overview: right upper lip 05/16 documented as of this encounter (statuses as of 04/07/2023) Immunizations Name Administration Dates Next Due COVID-19 [...] encounter Miscellaneous Notes * Telephone Encounter - Ernie Saunders PA-C - 04/07/2023 3:36 PM EST Signed Prescriptions: Disp Refills Furosemide 20 MG Oral Tablet (Lasix) 40 Tab*3 Sig: Take 1 Tabletby mouth once a day on Wednesday, Wednesday, and Wednesday only.Authorizing Provider: ERNIE SAUNDERS * Telephone Encounter - Dayanna Aceves PHARM Tech - 04/06/2023 3:39 PM EST Pt only has a couple left for this week. pt calling requesting the following medication below that is listed as "Historical". The following information was provided: Medication Name: furosemide Strength: 20 Directions: wed, wed Preferred Quantity: 30 Previous Prescriber: Barry Preferred Pharmacy: [facility] [address] Please review and approve if appropriate. Thank You, Dayanna Aceves [facility] Kiln Burner Helper III Centralized Clinical Pharmacy Services (CCPS) (Formerly Telepharmacy) 04/06/2023, 3:39 PM documented in this encounter Plan of Treatment Upcoming Encounters Date Type Department Care Team (Late st Contact Info) Description 05/07/2023 8:20 AM EST Office Visit Family Practice [facility] [place] [address] [place], [place] [address] Alejandro Reddy DO [address] [place] [address] Scheduled Procedures Name Priority Associated Diagnoses Date/Ti me COLONOSCOPY FLEXIBLE PROXIMA L DIAGNOSTIC Recall Special screening for malignant neoplasms, colon Health Maintenance Due Date Last Done Comments Zoster Vaccines (2 of 3) 03/05/2014 01/08/2014 Depression Screening 04/04/2020 04/04/2019 COVID-19 Vaccine (24 season) 2022 02/23/2022, 02/14/2021, 05/18/2020, Additional history [...] as of this encounter Visit Diagnoses Diagnosis Acute heart failure with preserved ejection fraction (HCC)- Primary Paroxysmal atrial fibrillation (HCC) Atrial fibrillation HTN, goal below 130/80 Unspecified essential hypertension documented in this encounter Advance Directives Documents on File Type Date Recorded Patient Bobbin Coil Winder Expl anation Advance Directives and Living Will [...] and were consensually agreed upon. Care Teams Forensic Manager Relationship Specialty Start Date End Date Alejandro Reddy DO [address] [place] [address] PCP - General Family Medicine 04/05/17 documented as of this encounter
--- OUTSIDE RECORDS SUMMARY | 2023-05-16 09:40 | External Medical Summary | Summary of Care ---
Author Name Unknown Organization [facility] Address [address] [facility] [place] [address] Phone [phone] Care Team Providers Care Business Line Manager Name Role Phone Alejandro Reddy DO Primary Care Provider [phone] Reason for Visit * Reason Onset Date Comments Advice 11/22/2022 Encounter Details Date Type Department Care Team Description 11/22/2022 Telephone Cardiology, [facility] [address] [place] [phone] Cesar Kimball MD [address] [place] [address] Advice Allergies No known active allergiesdocumented as of this encounter (statuses as of 11/23/2022) Medications Medication Sig Dispensed Refills Start Date [...] as of this encounter (statuses as of 11/23/2022) Active Problems Problem Noted Date Atrial fibrillation [...] as of this encounter (statuses as of 11/23/2022) Resolved Problems Problem Noted Date Resolved Date Dermatitis of both ear canals 11/26/2016 Epistaxis 11/26/2016 03/22/2017 History of basal cell carcinoma 09/18/2011 04/05/2017 Overview: right upper lip 05/16 documented as of this encounter (statuses as of 11/23/2022) Immunizations Name Administration Dates Next Due COVID-19 [...] encounter Miscellaneous Notes * Telephone Encounter - ROBERT Walker - 11/23/2022 8:44 AM EDT 12/21/22 at 945 with Anahy. MyG sent to notify. * Telephone Encounter - Cesar Kimball MD - 11/22/2022 1:25 PM EDT Patient hospitalized at [facility] with atrial fibrillation and rapid ventricularresponse. Mild diastolic heart failure in association rapid rhythm Patient treated with metoprolol succinate 50 mg twice per day, Eliquis 5 mg twice per day furosemide 20 mg 3 days/week on discharge Needs follow-up with cardiology 3 to 4 weeks time documented in this encounter Plan of Treatment Upcoming Encounters Date Type Specialty Care Team Description 12/21/2022 Office Visit Cardiology Anahy Saunders PA-C [address] [place] [address] [place] [phone] 05/07/2023 Office Visit Family Medicine Alejandro Reddy, DO [address] [place] [address] Scheduled Procedures Name Priority Associated Diagnoses Date/Ti [...] Documents on File Type Date Recorded Patient Front End Web Developer Expl anation Advance Directives and Living Will [...] and were consensually agreed upon. Care Teams Business Line Manager Relationship Specialty Start Date End Date Alejandro Reddy, DO [address] [place] [address] PCP - General Family Medicine 04/05/17 documented as of this encounter
--- OUTSIDE RECORDS SUMMARY | 2023-05-16 09:40 | External Medical Summary | Summary of Care ---
Author Name Unknown Organization [facility] Address [address] [facility] [place] [address] Phone [phone] Care Team Providers Care Family Dinner Service Specialist Name Role Phone Alejandro Reddy DO Primary Care Provider [phone] Reason for Visit * Reason Onset Date Comments Advice 11/22/2022 Encounter Details Date Type Department Care Team Description 11/22/2022 Telephone Cardiology, [facility] [address] [place] [id number] Cesar Kimball MD [address] [place] [address] Advice Allergies No known active allergiesdocumented as [...] encounter Miscellaneous Notes * Telephone Encounter - Cesar Kimball MD - 11/22/2022 1:25 PM EDT Patient hospitalized at [facility] with atrial fibrillation and rapid ventricularresponse. 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 Care Teams Family Dinner Service Specialist Relationship Specialty Start Date End Date Alejandro Reddy, DO 200 [facility] [place] [address] PCP - General Family Medicine 04/05/17 documented as of this encounter
--- OUTSIDE RECORDS SUMMARY | 2023-05-16 09:40 | External Medical Summary | Summary of Care ---
Author Name Unknown Organization [facility] Address [address] [place] [facility] [place] [address] Phone [phone] Care Team Providers Care Cotton Wringer Name Role Phone Alejandro Reddy DO Primary Care Provider [phone] Reason for Visit * Reason Onset Date Comments Medication Refill 04/06/2023 Encounter Details Date Type Department Care Team (Late st Contact Info) Description 04/06/2023 Refill Cardiology Adam Blood [address] [place] [phone] Alejandro Reddy DO [address] [place] [address] Allergies No known active allergiesdocumented as of this encounter (statuses as of 04/06/2023) Medications Medication Sig Dispensed Refills Start Date [...] before bedtime. 60 Tablet 5 12/07/2022 Active Furosemide 20 MG Oral Tablet (Lasix) Take 1 Tablet by mouth once a day on Wednesday, Wednesday, and Wednesday only. Take 1 tablet Mondays, Wednesdays, and Fridays in AM 0 12/21/2022 Active Lisinopril 40 MG Oral Tablet Take [...] the morning. 90 Tablet 3 04/06/2023 Active documented as of this encounter (statuses as of 04/06/2023) Active Problems Problem Noted Date Diagnosed Date [...] as of this encounter (statuses as of 04/06/2023) Resolved Problems Problem Noted Date Diagnosed Date Resolved Date Dermatitis of both ear canals 11/26/2016 03/22/2017 Epistaxis 11/26/2016 03/22/2017 History of basal cell carcinoma 09/18/2011 04/05/2017 Overview: right upper lip 05/16 documented as of this encounter (statuses as of 04/06/2023) Immunizations Name Administration Dates Next Due COVID-19 [...] encounter Miscellaneous Notes * Telephone Encounter - Tayla Vega PHARM Tech - 04/06/2023 3:42 PM EST TRANSFERRED TO [facility] TECH LINE Thank you, Tyala Vega CPhT Curtain Cutter II Centralized Clinical Pharmacy Services(CCPS)(Formerly Telepharmacy) 04/06/2023,3:43 PM documented in this encounter Plan of Treatment Upcoming Encounters Date Type Department Care Team (Late st Contact Info) Description 05/07/2023 8:20 AM EST Office Visit Family Practice [facility] [place] [address] [place] [address] Alejandro Reddy DO 200 [facility] [place] [address] Scheduled Procedures Name Priority Associated Diagnoses Date/Ti [...] Documents on File Type Date Recorded Patient Supervisor Compounding And Finishing Expl anation Advance Directives and Living Will [...] were consensually agreed upon. Care Teams Cotton Wringer Relationship Specialty Start Date End Date Alejandro Reddy DO [address] [place], [place] [phone] PCP - General Family Medicine 04/05/17 documented as of this encounter
--- OUTSIDE RECORDS SUMMARY | 2023-05-16 09:40 | External Medical Summary ---
Author Name Unknown Address Unknown Organization K09:[facility] [address] Laboratory Report Ordering Provider Test Date Status JULIUS MCKEON 05/07/2023 09:07:56 Final Observation Date Value Abnormality Reference (Units ) Status Magnesium 05/07/2023 09:07:56 2.2 1.5-2.6 (m g/dL) Final Performing Location [facility] [place] [address]
--- OUTSIDE RECORDS SUMMARY | 2023-05-16 09:40 | External Medical Summary | Summary of Care ---
Author Name Unknown Organization [facility] Address [address] [place] [address] Phone [phone] Care Team Providers Care Tissue Coordinator Name Role Phone Alejandro Reddy DO Primary Care Provider [phone] Reason for Visit * Reason Onset Date Comments Med Request 03/09/2023 Encounter Details Date Type Department Care Team (Late st Contact Info) Description 03/09/2023 Telephone Family Practice [facility] 200 [facility] [place] [address] Alejandro Reddy DO 200 [facility] [place] [address] Med Request Allergies No known active allergiesdocumented as of this encounter (statuses as of 03/09/2023) Medications Medication Sig Dispensed Refills Start Date End Date Status EXCEDRIN EXTRA STRENGTH 250-250-65 MG PO TABS takes daily for sinus problems 0 Active CLARITIN 10 MG PO CAPS None Entered 0 Active Finasteride 5 MG Oral Tablet [...] and Fridays in AM 0 3 Active Lisinopril 40 MG Oral Tablet Take 1 Tablet by mouth in the morning. 90 Tablet 2 4 Active Lisinopril 40 MG Oral Tablet Take 1 Tablet by mouth in the morning. 0 03/09/19 24 Discontinu ed(Refill) documented as of this encounter (statuses as of 03/09/2023) Active Problems Problem Noted Date Diagnosed Date [...] as of this encounter (statuses as of 03/09/2023) Resolved Problems Problem Noted Date Diagnosed Date Resolved Date Dermatitis of both ear canals 11/26/2016 03/22/2017 Epistaxis 11/26/2016 03/22/2017 History of basal cell carcinoma 09/18/2011 04/05/2017 Overview: right upper lip 05/16 documented as of this encounter (statuses as of 03/09/2023) Immunizations Name Administration Dates Next Due COVID-19 [...] encounter Miscellaneous Notes * Telephone Encounter - Kathy Tolentino LPN - 03/09/2023 1:54 PM EST Pending Prescriptions: Disp Refills Lisinopril 40 MG Oral Tablet 90 Tab*2 Sig: Take 1 Tablet by mouth in the morning. Last Visit: 12/07/2022 (in office), Visit date not found (telemedicine) Next Visit: 05/07/2023 Last date the medication was ordered: Historical Patient Active Problem List Diagnosis Code HTN, goal below 140/90 I10 Gout M10.9 History of nonmelanoma skin cancer Z85.828 Pure hypercholesterolemia E78.00 BPH with obstruction/lower urinary tract symptoms N40.1, N13.8 Gastroesophageal reflux disease without esophagitis K21.9 Hematuria, gross R31.0 Calculus of kidney N20.0 Bladder stone N21.0 Atrial fibrillation with rapid ventricular response (HCC) I48.91 Labs: Lab Results Component Value Date/Time CREATININE - [facility] 1.1 10/03/2021 09:44 AM CREATININE - [facility] 1.2 04/04/2019 09:21 AM CREATININE, RANDOM URINE - [facility] 155 02/26/2021 11:24 AM CREATININE-OUTSIDE LAB 1.11 05/01/2018 12:00 AM Lab Results Component Value Date/Time POTASSIUM - [facility] 4.4 10/03/2021 09:44 AM POTASSIUM - [facility] 4.8 04/04/2019 09:21 AM POTASSIUM-OUTSIDE LAB 3.8 05/01/2018 12:00 AM Lab Results Component Value Date/Time TSH - [facility] 2.69 12/17/1997 05:38 PM Lab Results Component Value Date/Time LDL CHOLESTEROL (CALCULATED) - [facility] 65 10/03/2021 09:44 AM LDL CHOLESTEROL (CALCULATED) - [facility] 60 06/17/2020 07:29 AM LDL CHOLESTEROL (CALCULATED) - [facility] 64 04/04/2019 09:21 AM LDL CHOLESTEROL (CALCULATED) - [facility] 73 03/30/2017 08:50 AM LDL CHOLESTEROL (DIRECT MEASURE) - [facility] NOT APPLICABLE 04/04/2019 09:21 AM LDL CHOLESTEROL (DIRECT MEASURE) - [facility] NOT APPLICABLE 03/30/2017 08:50 AM Lab Results Component Value Date/Time ALT - [facility] 19 10/03/2021 09:44 AM ALT - [facility] 21 04/04/2019 09:21 AM Hemoglobin AIC Results: No results found for: "HEMOGLOBIN A1C" * Telephone Encounter - Anahy Holly CPhT - 03/09/2023 1:45 PM EST Patient calling requesting the following medication below that is listed as "Historical". The following information was provided: Medication Name: lisinopril Strength: 40mg Directions: take 1 daily Preferred Quantity: 90 Previous Prescriber: Dr Ramey Preferred Pharmacy: [facility] [address] [place] [address] Please review and approve if appropriate. Thank you, Anahy Holly Impact Retail Service Merchandiser Centralized Clinical Pharmacy Services (CCPS) (Formerly Telepharmacy) 03/09/2023,1:46 PM documented in this encounter Plan of Treatment Upcoming Encounters Date Type Department Care Team (Late st Contact Info) Description 03/26/2023 8:30 AM EST Office Visit Cardiology, [facility] [address] [place] [address] Anahy Saunders PA-C [address] [place] [address] [place] [address] 05/07/2023 8:20 AM EST Office Visit Family Practice [facility] 200 [facility] [place] [address] Alejandro Reddy DO 200 [facility] [place], [place] [address] Scheduled Procedures Name Priority Associated Diagnoses Date/Ti [...] Documents on File Type Date Recorded 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 Care Teams Tissue Coordinator Relationship Specialty Start Date End Date Alejandro Reddy DO 200 [facility] [place] [address] PCP - General Family Medicine 04/05/17 documented as of this encounter
--- OUTSIDE RECORDS SUMMARY | 2023-05-16 09:40 | External Medical Summary | Summary of Care ---
Author Name Unknown Organization [facility] Address [address] [facility] [place] [address] Phone [phone] Care Team Providers Care Marine Engineering Professor Name Role Phone Alejandro Reddy DO Primary Care Provider [phone] Encounter Details Date Type Department Care Team (Late st Contact Info) Description 04/07/2023 Orders Only PATIENT PORTAL DO NOT DELETE THIS DEPT USED BY [place] URIBE [address] Allergies No known active allergiesdocumented as of [...] EST Office Visit Family Practice [facility] [place] 200 [facility] [place], [place] [address] Alejandro Reddy DO [address] [place] [address] Scheduled Procedures Name Priority Associated Diagnoses Date/Ti [...] Documents on File Type Date Recorded Patient Flarer Expl anation Advance Directives and Living Will [...] and were consensually agreed upon. Care Teams Marine Engineering Professor Relationship Specialty Start Date End Date Alejandro Reddy DO [address] [place], [place] [address] [address] PCP - General Family Medicine 04/05/17 documented as of this encounter
--- OUTSIDE RECORDS SUMMARY | 2023-05-16 09:40 | External Medical Summary | Summary of Care ---
Author Name Unknown Organization [facility] Address [address] [facility] [place] [address] Phone [phone] Care Team Providers Care Measurement Operator Name Role Phone Alejandro Reddy DO Primary Care Provider [phone] Reason for Visit * Reason Onset Date Comments Advice 11/22/2022 Encounter Details Date Type Department Care Team Description 11/22/2022 Telephone Cardiology, [facility] [address] [place] [id number] Cesar Kimball MD [address] [place] [address] Advice Allergies No known active allergiesdocumented as of this encounter (statuses as of 11/24/2022) Medications Medication Sig Dispensed Refills Start Date [...] as of this encounter (statuses as of 11/24/2022) Active Problems Problem Noted Date Atrial fibrillation [...] as of this encounter (statuses as of 11/24/2022) Resolved Problems Problem Noted Date Resolved Date Dermatitis of both ear canals 11/26/2016 Epistaxis 11/26/2016 03/22/2017 History of basal cell carcinoma 09/18/2011 04/05/2017 Overview: right upper lip 05/16 documented as of this encounter (statuses as of 11/24/2022) Immunizations Name Administration Dates Next Due COVID-19 [...] * Telephone Encounter - ROBERT Walker - 11/24/2022 9:29 AM EDT Spoke with pt. Pt is agreeable to appt. * Telephone Encounter - ROBERT Walker - 11/23/2022 8:44 AM EDT 12/21/22 at 945 with Anahy. MyG sent to notify. * Telephone Encounter - Cesar Kimball MD - 11/22/2022 1:25 PM EDT Patient hospitalized at [facility] with atrial fibrillation and rapid ventricularresponse. 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 Care Teams Measurement Operator Relationship Specialty Start Date End Date Alejandro Reddy, DO 200 [place] [address] PCP - General Family Medicine 04/05/17 documented as of this encounter
--- OUTSIDE RECORDS SUMMARY | 2023-05-16 09:40 | External Medical Summary ---
Author Name Unknown Address Unknown Organization K01:[facility] - [address] [facility]. [place] [address] Laboratory Report Ordering Provider Test Date Status KAREL FAUSTINElias 05/07/2023 09:07:56 Final Observation Date Value Abnormality Reference (Units ) Status SYNC LEUKOCYTES IN BLOOD BY AUTOMATED COUNT 05/07/2023 09:07:56 9.31 4.00-10.80 (K/uL) Final Segs 05/07/2023 09:07:56 77.4 Above high normal 40.0-75.0 (%) Final Lymphs % 05/07/2023 09:07:56 13.5 Below low normal 18.0-42.0 (%) Final Monos 05/07/2023 09:07:56 7.4 1.0-11.0 (%) Final Eosinophils 05/07/2023 09:07:56 1.0 0.0-6.0 (%) Final Basos 05/07/2023 09:07:56 0.4 0.0-2.0 (%) Final Immature Granulocyte, Percent 05/07/2023 09:07:56 0.3 0.0-2.0 (%) Final Absolute Segs 05/07/2023 09:07:56 7.20 1.80-7.70 (K/uL) Final Lymphs, absolute 05/07/2023 09:07:56 1.26 1.00-4.80 (K/ul) Final Monos, Abs 05/07/2023 09:07:56 0.69 0.00-1.10 (K/uL) Final Eos, Abs 05/07/2023 09:07:56 0.09 0.00-0.70 (K/uL) Final Basos, Abs 05/07/2023 09:07:56 0.04 0.00-0.20 (K/uL) Final Immature Granulocytes, Number 05/07/2023 09:07:56 0.03 0.00-0.20 (K/uL) Final Performing Location [facility] - [address] [facility] [address]
--- OUTSIDE RECORDS SUMMARY | 2023-05-16 09:40 | External Medical Summary | Summary of Care ---
Author Name Unknown Organization [facility] Address [address] [facility] [place] [address] Phone [phone] Care Team Providers Care Director Of Research Name Role Phone Alejandro Reddy DO Primary Care Provider [phone] Reason for Visit * Reason Onset Date Comments Advice 11/22/2022 Encounter Details Date Type Department Care Team Description 11/22/2022 Telephone Cardiology, [facility] [address] [place] [phone] Cesar Kimball MD [address] [place] [address] Advice Allergies No known active allergiesdocumented as of this encounter (statuses as of 11/22/2022) Medications Medication Sig Dispensed Refills Start Date [...] as of this encounter (statuses as of 11/22/2022) Active Problems Problem Noted Date Atrial fibrillation [...] as of this encounter (statuses as of 11/22/2022) Resolved Problems Problem Noted Date Resolved Date Dermatitis of both ear canals 11/26/2016 Epistaxis 11/26/2016 03/22/2017 History of basal cell carcinoma 09/18/2011 04/05/2017 Overview: right upper lip 05/16 documented as of this encounter (statuses as of 11/22/2022) Immunizations Name Administration Dates Next Due COVID-19 [...] 11/22/2022 1:25 PM EDT Patient hospitalized at [facility] with atrial fibrillation and rapid ventricularresponse. Mild [...] Family Medicine Alejandro Reddy, DO [address] [place] [address] Scheduled Procedures Name Priority Associated Diagnoses Date/Ti [...] Documents on File Type Date Recorded Patient Burr Picker Expl anation Advance Directives and Living Will [...] and were consensually agreed upon. Care Teams Director Of Research Relationship Specialty Start Date End Date Alejandro Reddy, DO 200 [place] [address] PCP - General Family Medicine 04/05/17 documented as of this encounter
--- OUTSIDE RECORDS SUMMARY | 2023-05-16 09:40 | External Medical Summary ---
Author Name Unknown Address Unknown Organization K01:[facility] - [address] [place] [address] Laboratory Report Ordering Provider Test Date Status MEGHAN ROQUE 05/07/2023 09:07:56 Final Observation Date Value Abnormality Reference (Units ) Status MYCODE SPECIMEN-SST 05/07/2023 09:07:56 Freezing of extracted DNA, whole blood and/or serum. Final Performing Location [facility] - [address] [facility] [address]
--- OUTSIDE RECORDS SUMMARY | 2023-05-16 09:40 | External Medical Summary ---
Author Name Unknown Address Unknown Organization K01:[facility] [place] [address] [place] [address] Laboratory Report Ordering Provider Test Date Status MEGHAN ROQUE 05/07/2023 09:07:56 Final Observation Date Value Abnormality Reference (Units ) Status MYCODE SPECIMEN-SST 05/07/2023 09:07:56 Freezing of extracted DNA, whole blood and/or serum. Final Performing Location LAB[facility]ATORY [facility] [address] [facility] [address]
--- OUTSIDE RECORDS SUMMARY | 2023-05-16 09:40 | External Medical Summary | Summary of Care ---
Author Name Unknown Organization [facility] Address [address] [place] [address] Phone [phone] Care Team Providers Care Powerhouse Helper Name Role Phone Roxie Lamb DO Primary Care Provider [phone] Reason for Visit * Reason Onset Date Comments Medication Refill 04/05/2023 Encounter Details Date Type Department Care Team (Late st Contact Info) Description 04/05/2023 Refill Family Practice [facility] [address] [facility] [place] [address] Roxie Lamb DO [address] [facility] [place] [address] Encounter for long-term (current) use of medications*; Gastroesophageal reflux disease without esophagitis Allergies No known active allergiesdocumented as of [...] 1 Tablet before bedtime. 60 Tablet 5 10/02/202 3 Active Eliquis 5 MG Oral TabletIndications:Chronic [...] the morning. 90 Tablet 3 4 Active Finasteride 5 MG Oral Tablet (Proscar) Take 1 Tablet by mouth in the morning. 90 Tablet 3 3 04/05/19 24 Discontinu ed(Refill) Omeprazole 20 MG Oral Capsule Delayed Release (PriLOSEC)Indications:Gas troesophageal reflux disease without esophagitis take 1 capsule by mouth once daily 1 hour before THE FIRST MEAL OF THE DAY 90 Capsule 3 3 04/05/19 24 Discontinu ed(Refill) documented as of this [...] encounter Miscellaneous Notes * Telephone Encounter - Juliette Motley [facility] - 04/06/2023 10:33 AM EST Signed Prescriptions: Disp Refills Omeprazole 20 MG Oral Capsule Delayed Rele*90 Cap*3 Sig: Take 1 Capsule by mouth in the morning. 1 hour before the first meal of the day..Authorizing Provider: ROXIE LAMB User: JULIETTE MOTLEY Finasteride 5 MG Oral Tablet (Proscar) 90 Tab*3 Sig: Take 1 Tablet by mouth in the morning.Authorizing Provider: ROXIE LAMB User: JULIETTE MOTLEY * Telephone Encounter - Celina Taylor [facility] - 04/05/2023 9:35 AM EST Did you pend patient's preferred pharmacy and medication before forwarding?yes Pharmacy: [facility] [id number] Pending Prescriptions: Disp Refills Omeprazole 20 MG Oral Capsule Delayed Rel*90 Cap*3 Sig: Take 1 Capsule by mouth in the morning. 1 hour before the first meal of the day.. Finasteride 5 MG Oral Tablet (Proscar) 90 Tab*3 Sig: Take 1 Tablet by mouth in the morning. Last Visit: 12/07/2022 (in office), Visit date not found (telemedicine) Next Visit: 05/07/2023 If no future appointments scheduled, and last appointment is greater than a year ago, please schedule patient for a follow-up appointment Last date the medication was ordered: 03/23/22 Is this request for a controlled substance?No Urine Drug Screen:No results found for this or any previous visit. Patient Phone Numbers Labs: Lab Results Component Value Date/Time CREAT 1.1 10/03/2021 09:44 AM CREAT 1.2 04/04/2019 09:21 AM POTASSIUM 4.4 10/03/2021 09:44 AM POTASSIUM 4.8 04/04/2019 09:21 AM TSH 2.69 12/17/1997 05:38 PM LDLCALC 65 10/03/2021 09:44 AM LDLCALC 64 04/04/2019 09:21 AM LDLDIRECT NOT APPLICABLE 04/04/2019 09:21 AM ALT 19 10/03/2021 09:44 AM ALT 21 04/04/2019 09:21 AM documented in this encounter Plan of Treatment Upcoming Encounters Date Type Department Care Team (Late st Contact Info) Description 05/07/2023 8:20 AM EST Office Visit Family Practice [facility] [place] [address] [facility] [place] [address] Roxie Lamb DO [address] [facility] [place] [address] Scheduled Orders Name Type Priority Associated Diagnoses Orde r Schedule VITAMIN B12 Lab Routine Encounter for long-term (current) use of medications Expected: 04/06/2023 (Approximate), Expires: 04/06/2024 MAGNESIUM Lab Routine Encounter for long-term (current) use of medications Expected: 04/06/2023 (Approximate), Expires: 04/06/2024 Scheduled Procedures Name Priority Associated Diagnoses Date/Ti [...] as of this encounter Visit Diagnoses Diagnosis Encounter for long-term (current) use of medications- Primary Encounter for long-term (current) use of other medications Gastroesophageal reflux disease without esophagitis Esophageal reflux documented in this encounter Advance Directives Documents on File Type Date Recorded 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 Care Teams Powerhouse Helper Relationship Specialty Start Date End Date Roxie Lamb DO [address] [place] [address] PCP - General Family Medicine 04/05/17 documented as of this encounter
--- NOTE | 2023-05-16 10:17 | Emergency Department Note ---
Impression & Plan Cellulitis of right thumb, Failure of outpatient treatment, Atrial fibrillation with rapid ventricular response ED Provider Note ED Provider Note NAME: AUSTIN RACHEL AGE:87 SEX: Male : 1935 ARRIVES VIA: Private vehicle INFORMANT: Patient ED PROVIDER(s): Bhavna Bethea DO CHIEF COMPLAINT: Hand wound HPI: This is an 87-year-old male presents emerged from due to concern for worsening wound of the right hand. Patient states he developed a blister over the dorsal aspect of the IP joint of the right thumb. He states he had swelling there additionally and began taking Indocin as he was suspicious for gout. He states he is never had gout in his hand before only in his toes. He states he went to his provider on Wednesday and was instructed to continue Indocin and doxycycline was added as a precaution in case of evolving infection. He states over the course of the last 4 to 5 days the involved area has not improved and he now has redness extending proximally as well as increased edema. He does feel the Indocin is controlling his pain. He states he is trying to stay well- hydrated by drinking plenty of fluids. He denies fevers or chills. He denies any other joint pain, rash, sores, or red areas. He does take allopurinol chronically for his gout. Patient with hx of a.fib on metoprolol and eliquis. PAST MEDICAL HISTORY:See Below PAST SURGICAL HISTORY:See Below FAMILY HISTORY:See Below SOCIAL HISTORY:See Below HOME MEDICATIONS:See Below ALLERGIES:See Below VITALS:See Below PHYSICAL EXAMINATION: GENERAL: alert, well appearing, well nourished, no distress, non-toxic EYE EXAM: normal conjunctiva, PERRL and EOM's grossly intact NECK: supple, no nuchal rigidity, no adenopathy, non-tender LUNGS: Clear to auscultation. Normal chest wall mechanics, no w/r/r HEART: no murmurs, S1 normal and S2 normal ABDOMEN: abdomen soft, non-tender, normo-active bowel sounds, no masses, no rebound or guarding. SKIN: no rashes, petechiae, orbruising UPPER EXTREMITIES: upper extremities are grossly normal. FROM, nml pulses b/l. Right hand with edema and erythema at right IP joint dorsally, erythema/edema extend proximally to the base of the thumb and appear to be extending across the dorsum of the hand and distally down the nail; no other joint pain or erythema, no joint effusions LOWER EXTREMITIES: No pitting edema. FROM, nml pulses b/l. NEURO EXAM: Normal sensorium, cranial nerves II-XII grossly intact, normal speech, no facial droop,nogross weakness of arms, no gross weakness of legs. Gross sensation intact. No ataxia. Vital Signs: reviewed and remarkable Differential Diagnosis: cellulitis, abscess, MRSA infection, osteomyelitis, necrotizing fasciitis, gout, dermatitis, drug eruption, as well as others were entertained. MEDICAL DECISION MAKING: This is an 87 yo male with erythema/edema/pain at the thumb of his dominant right hand. Initially he had tachycardia and hypotension however this improved with IVF. Labs drawn and sent, IV established, EKG performed and interpreted at bedside, and patient placed on telemetry. Given concern for worsening infection despite outpatient antibiotics, we discussed CT imaging. No evidence of osteomyelitis. He was started on broad antibiotics. I did contact zoning technician ortho via [place] text who was willing to see him in consult during admission. I feel initial diagnosis of gout less likely and now with worsening infection and failed outpatient treatment on doxy. Case discussed with hospitalist team for additional evaluation and mgmt. Consultation(s): 1208: Discussed with Sandy Soto PA-C, with [facility] hospitalist team. ER Treatment Provided: See below Diagnostics Interpreted By Me: -ECG: a.fib at 105, nml axis, nml intervals, no acute ST/T wave changes -Cardiac Monitoring: An order was placed for continuous cardiac monitoring. The monitor shows a rate of 112 with a.fib rhythm. -Laboratory studies: As stated above and show below. Triage Nursing Note Reviewed Prior/Outside Records Reviewed Past Med/Surg History Medical History Bladder stones BPH (benign prostatic hyperplasia) GERD (gastroesophageal reflux disease) Gout Hypertension Surgical History S/P TURP Family History Other Family history non-contributory Social History Smoking Status: Never smoker Second Hand Exposure: No; Do You Dip or Chew Tobacco: No; Tobacco Cessation Education Requested by Patient: No Hx Alcohol Use: No Hx Substance Use: No Preferred Language: Setswana Communication Ability: Effective Sign Designer Required: No Beliefs That Will Affect Care: None Current Living Situation: Alone Other Information That Helps Us Care for You: No Feels Safe at Home: Yes Safety Concerns: Feels Safe At This Time Assistive Devices: None Allergies Allergies Allergy/AdvReac Type Severity Reaction Status Date / Time No Known Allergies Allergy Unverified 05/16/23 11:37 Home Meds Home Medications Medication Instructions Recorded Confirmed allopurinol 300 mg tablet 300 mg PO QAM 05/01/18 05/16/23 atorvastatin 10 mg tablet 10 mg PO QAM 05/01/18 05/16/23 omeprazole 20 mg capsule,delayed 20 mg PO QAM 05/01/18 05/16/23 release [id number] 250 2 tab PO AMPM 11/20/22 05/16/23 mg-250 mg-65 mg tablet (Excedrin Extra Strength) finasteride 5 mg tablet 5 mg PO QAM 11/20/22 05/16/23 lisinopril 40 mg tablet 40 mg PO QAM 11/20/22 05/16/23 loratadine 10 mg tablet (Claritin) 10 mg PO QAM 11/20/22 05/16/23 doxycycline hyclate 100 mg capsule 100 mg PO BID 05/16/23 05/16/23 furosemide 20 mg tablet 20 mg PO MOWEFR 05/16/23 05/16/23 indomethacin 50 mg capsule 50 mg PO TID PRN Pain 05/16/23 05/16/23 metoprolol succinate 50 mg 50 mg PO BID 05/16/23 05/16/23 tablet,extended release 24 hr Previous Rx's Medication Instructions Recorded apixaban 5 mg tablet (Eliquis) 5 mg PO BID #3 tabs 11/22/22 Results & Data (ED) Vital Signs Vital Signs - 24 hr 05/16/23 09:44 05/16/23 10:09 05/16/23 10:11 Temperature 36.3 C L Temperature Source Temporal Artery Scan Pulse Rate 120 H 127 H 120 H Pulse Rate from SpO2 Sensor Respiratory Rate 18 20 Blood Pressure 80/50 L Blood Pressure Mean 60 Pulse Oximetry 94 Oxygen Delivery Method Room Air Sepsis Recent Fever Within 48 Hours No Sepsis New/Unexplained Change in Mental Status N/A Sepsis Action Taken by Nursing Physician Notified 05/16/23 10:30 05/16/23 10:30 05/16/23 11:06 Temperature Temperature Source Pulse Rate 122 H 111 H Pulse Rate from SpO2 Sensor 127 H Respiratory Rate 25 H 22 Blood Pressure 170/138 H Blood Pressure Mean 151 Pulse Oximetry 95 Oxygen Delivery Method Sepsis Recent Fever Within 48 Hours Sepsis New/Unexplained Change in Mental Status Sepsis Action Taken by Nursing 05/16/23 11:10 05/16/23 11:10 Temperature Temperature Source Pulse Rate 96 H Pulse Rate from SpO2 Sensor 99 H Respiratory Rate 18 Blood Pressure 170/122 H Blood Pressure Mean 142 Pulse Oximetry 93 Oxygen Delivery Method Sepsis Recent Fever Within 48 Hours Sepsis New/Unexplained Change in Mental Status Sepsis Action Taken by Nursing Laboratory Data 05/17/23 06:51 05/17/23 06:51 Lab Results 05/16/23 05/16/23 Range/Units 09:50 10:39 WBC 6.12 (4.8-10.8) K/ul RBC 4.23 L (4.70-6.10) M/uL Hgb 13.3 L (14.0-18.0) g/dl Hct 39.1 L (42.0-52.0) % MCV 92.4 (80.0-100.0) fL MCH 31.4 (25.0-34.0) pg MCHC 34.0 (32.0-36.0) g/dL RDW Std Deviation 46.1 (36.4-46.3) fL RDW Coeff of Radha 13.6 (11.5-14.5) % Plt Count 202 (130-400) K/uL MPV 10.5 (9.4-12.4) fL Immature Gran % (Auto) 0.2 % Neut % (Auto) 78.1 % Lymph % (Auto) 13.7 % [place] % (Auto) 6.4 % Eos % (Auto) 1.1 % Baso % (Auto) 0.5 % Neut # (Auto) 4.78 (1.40-6.50) K/uL Lymph # (Auto) 0.84 L (1.20-3.40) K/uL [place] # (Auto) 0.39 (0.11-0.59) K/uL Eos # (Auto) 0.07 (0.00-0.50) K/uL Baso # (Auto) 0.03 (0.00-0.20) K/uL Immature Gran # (Auto) 0.01 (0.01-0.20) K/uL Sodium 138 (136-145) mmol/L Potassium 4.3 (3.5-5.1) mmol/L Chloride 105 (98-107) mmol/L Carbon Dioxide 22 (21-32) mmol/L Anion Gap 11 (3-11) BUN 28 H (6-23) mg/dl Creatinine 1.16 (0.6-1.4) mg/dl Est Cr Clr Drug Dosing 54.5 ml/min Est GFR ( Amer) 66.2 ml/min Est GFR (Non-Af Amer) 57.1 ml/min BUN/Creatinine Ratio 24.1 H (10-20) Glucose 171 H (70-99(Fasting)) mg/dl Lactate 1.7 (0.4-2.0) mmol/L Uric Acid 6.2 (2.6-7.2) mg/dl Calcium 9.3 (8.6-10.3) mg/dl Magnesium 1.6 L (1.7-2.4) mg/dl Total Bilirubin 0.5 (0.2-1.0) mg/dl AST 19 (13-39) U/L ALT 22 (7-52) U/L Alkaline Phosphatase 90 (34-104) U/L Total Protein 7.0 (6.0-8.3) gm/dl Albumin 4.0 (3.4-5.0) gm/dl Globulin 3.0 (2.5-4.0) gm/dl Albumin/Globulin Ratio 1.3 (0.9-2) Lipase 47 (11-82) U/L Procalcitonin 0.05 (0-0.5) ng/ml Administered Medications Acyclovir (Acyclovir 400 Mg Tab) 800 mg PO BID RAMANDEEP Stop: 05/23/23 12:44 Last Admin: 05/17/23 08:09 Dose: 800 mg Documented By: Admin: 05/16/23 21:33 Dose: 800 mg Documented By: Admin: 05/16/23 13:52 Dose: 800 mg Documented By: BCN Acyclovir (Acyclovir 5% Oint 15 Gm Tube) 1 appln EXT QID [facility] Stop: 05/26/23 12:59 Last Admin: 05/17/23 16:57 Dose: 1 appln Documented By: Admin: 05/17/23 13:48 Dose: 1 appln Documented By: Admin: 05/17/23 08:09 Dose: 1 appln Documented By: Admin: 05/16/23 21:34 Dose: 1 appln Documented By: Admin: 05/16/23 17:08 Dose: 1 appln Documented By: Admin: 05/16/23 13:53 Dose: 1 appln Documented By: ZOHRA Allopurinol (Allopurinol 300 Mg Tab) 300 mg PO QAM [facility] Stop: 06/16/23 08:59 Last Admin: 05/17/23 08:07 Dose: 300 mg Documented By: HKANH Apixaban (Apixaban 5 Mg Tablet) 5 mg PO BID [facility] Stop: 06/15/23 20:59 Last Admin: 05/17/23 08:09 Dose: 5 mg Documented By: Admin: 05/16/23 21:33 Dose: 5 mg Documented By: SEUN Atorvastatin Calcium (Atorvastatin 10 Mg Tab) [facility] [place] Stop: 06/16/23 08:59 Last Admin: 05/17/23 08:07 Dose: 10 mg Documented By: KHANH Finasteride (Finasteride 5 Mg Tab) 5 mg PO QAM [facility] Stop: 06/16/23 08:59 Last Admin: 05/17/23 08:07 Dose: 5 mg Documented By: KHANH Furosemide (Furosemide 20 Mg Tab) 20 mg PO MoWeFr@0900 [facility] Stop: 06/16/23 08:59 Last Admin: 05/17/23 08:07 Dose: 20 mg Documented By: KHANH Ceftriaxone Sodium 2,000 mg/ (Dextrose) 50 mls @ 100 mls/hr IV Q24H [facility]; Protocol Stop: 05/23/23 13:59 Last Infusion: 05/17/23 14:36 Dose: Infused Documented By: Admin: 05/17/23 13:48 Dose: 100 mls/hr Documented By: Infusion: 05/16/23 16:21 Dose: Infused Documented By: Admin: 05/16/23 14:09 Dose: 100 mls/hr Documented By: NATAN Vancomycin HCl 1,250 mg/ (Sodium Chloride) 275 mls @ 200 mls/hr IV Q24H [facility]ANDEEP Stop: 05/24/23 00:00 Last Infusion: 05/17/23 04:51 Dose: Infused Documented By: Admin: 05/17/23 00:37 Dose: 200 mls/hr Documented By: SEUN Lisinopril (Lisinopril 40 Mg Tab) 40 mg PO QAM RAMANDEEP Stop: 06/16/23 08:59 Last Admin: 05/17/23 08:07 Dose: 40 mg Documented By: KHANH Metoprolol Succinate (Metoprolol Succ 25mg Ext Rel Tab) 75 mg PO BID [facility] Stop: 06/15/23 20:59 Last Admin: 05/17/23 08:08 Dose: 75 mg Documented By: Admin: 05/16/23 21:32 Dose: 75 mg Documented By: SEUN Metoprolol Tartrate (Metoprolol Tartrate 1 Mg/Ml Vial) 5 mg IV Q6 PRN PRN Reason: Tachycardia HR>110 Stop: 06/16/23 11:59 Last Admin: 05/17/23 08:32 Dose: 5 mg Documented By: KHANH Pantoprazole Sodium (Pantoprazole 40 Mg Tab) 40 [facility] [place] Stop: 06/16/23 08:59 Last Admin: 05/17/23 08:07 Dose: 40 mg Documented By: KHANH Discontinued Medications Furosemide (Furosemide 40 Mg/4 Ml Vial) 40 mg IV ONE ONE Stop: 05/17/23 14:31 Last Admin: 05/17/23 15:01 Dose: 40 mg Documented By: KILLIAN Sodium Chloride (Nss) 500 mls @ 999 mls/hr IV .Q31M ONE Stop: 05/16/23 10:35 Last Infusion: 05/16/23 11:57 Dose: Infused Documented By: Admin: 05/16/23 10:21 Dose: 999 mls/hr Documented By: LAINA Vancomycin HCl 2,000 mg/ (Sodium Chloride) 540 mls @ 200 mls/hr IV NOW STA Stop: 05/16/23 13:28 Last Infusion: 05/16/23 16:21 Dose: Infused Documented By: Admin: 05/16/23 11:57 Dose: 200 mls/hr Documented By: NATAN Piperacillin Sod/Tazobactam Sod (Zosyn) 4.5 gm in 100 mls @ 200 mls/hr IV NOW STA Stop: 05/16/23 11:17 Last Infusion: 05/16/23 11:57 Dose: Infused Documented By: Admin: 05/16/23 11:23 Dose: 200 mls/hr Documented By: ZOHRA Magnesium Sulfate/Dextrose (Magnesium Sulfate / D5w) 1 gm in 100 mls @ 50 mls/hr IV Q2H RAMANDEEP Stop: 05/16/23 19:14 Last Infusion: 05/16/23 18:22 Dose: Infused Documented By: Admin: 05/16/23 17:08 Dose: Not Given Documented By: Admin: 05/16/23 16:20 Dose: 50 mls/hr Documented By: Infusion: 05/16/23 15:38 Dose: Infused Documented By: Admin: 05/16/23 13:38 Dose: 50 mls/hr Documented By: ZOHRA Ioversol (Optiray 320 100ml) 94 ml IV ONCE ONE Stop: 05/16/23 10:56 Last Admin: 05/16/23 10:55 Dose: 94 ml Documented By: SONIA Labetalol HCl (Labetalol Hcl Iv 5 Mg/Ml 20ml) 5 mg IV NOW STA Stop: 05/16/23 14:11 Last Admin: 05/16/23 15:08 Dose: 5 mg Documented By: NICK Co-signed By: LAINA Metoprolol Tartrate (Metoprolol Tartrate 1 Mg/Ml Vial) 5 mg IV NOW STA Stop: 05/16/23 13:16 Last Admin: 05/16/23 13:37 Dose: 5 mg Documented By: ZOHRA Potassium Chloride (Potassium Chloride Crtab 20 Meq Tabcr) 20 meq PO ONE ONE Stop: 05/17/23 14:31 Last Admin: 05/17/23 15:01 Dose: 20 meq Documented By: MAS Imaging Data Radiologist's Impression: Hand CT 05/16/23 10:07 CT hand RT w con CLINICAL HISTORY: thumb, worsening infection TECHNIQUE: Multidetector row helical CT of the right hand was performed with intravenous contrast. Coronal and sagittal reformations were obtained. Automated dose lowering techniques and/or adjustment according to patient size were utilized for this examination. CT DOSE: 430.03 mGy.cm Comparison: None available at the time of this dictation. FINDINGS: Exam is slightly limited by patient motion. There is degenerative change most prominently seen in the interphalangeal joints and first metacarpophalangeal joints. No joint effusion is seen. Mild diffuse soft tissue edema is seen, most prominently on the dorsal surface of the palm, without fluid collection. IMPRESSION: Soft tissue edema is seen most prominently on the dorsal surface of abnormal without drainable fluid collection. ACT 112: Negative or not required by law. Electronically signed by: Tom Drake M.D. 05/16/2023 11:30 AM Discharge Plan Visit Data Chief Complaint: Swelling/Edema to Extremity Stated Complaint: RIGHT THUMB PAIN ED Provider: Bhavna Bethea Discharge Problem: Cellulitis of right thumb, Failure of outpatient treatment, Atrial fibrillation with rapid ventricular response Patient Disposition: Admitted As Inpatient Discharge Instructions Interventions: ED Discharge Assessment Last Done: 05/16/23 15:16
[2023-05-16] MEDS: SODIUM CHLORIDE 0.9% 500 ML IV ONE (10:21)
[2023-05-16 10:25] LABS: Basophils # (auto) 0.03 K/uL (0.00-0.20); Basophils % (auto) 0.5 %; Eosinophils # (auto) 0.07 K/uL (0.00-0.50); Eosinophils % (auto) 1.1 %; Hematocrit (blood only) 39.1 % (42.0-52.0); Hemoglobin 13.3 g/dl (14.0-18.0); Immature Granulocytes # (auto) 0.01 K/uL (0.01-0.20); Immature Granulocytes % (auto) 0.2 %; Lymphocytes # (auto) 0.84 K/uL (1.20-3.40); Lymphocytes % (auto) 13.7 %; Mean Corpuscular Hemoglobin 31.4 pg (25.0-34.0); Mean Corpuscular Volume 92.4 fL (80.0-100.0); Mean Platelet Volume 10.5 fL (9.4-12.4); Monocytes # (auto) 0.39 K/uL (0.11-0.59); Monocytes % (auto) 6.4 %; Neutrophils # (auto) 4.78 K/uL (1.40-6.50); Neutrophils % (auto) 78.1 %; Platelet Count 202 K/uL (130-400); RDW Coefficient of Variation 13.6 % (11.5-14.5); RDW Standard Deviation 46.1 fL (36.4-46.3); Red Blood Count 4.23 M/uL (4.70-6.10); White Blood Count 6.12 K/ul (4.8-10.8)
[2023-05-16 10:41] LABS: Albumin Globulin Ratio 1.3 (0.9-2); BUN Creatinine Ratio 24.1 (10-20); Bilirubin,Total 0.5 mg/dl (0.2-1.0); Calcium 9.3 mg/dl (8.6-10.3); Creatinine Clr Calc Pharmacy 54.5 ml/min; Est GFR (African American) 66.2 ml/min; Est GFR (Non-African American) 57.1 ml/min; Magnesium 1.6 mg/dl (1.7-2.4); Potassium 4.3 mmol/L (3.5-5.1); Uric Acid 6.2 mg/dl (2.6-7.2)
[2023-05-16] MEDS: OPTIRAY 320 100ml IV ONE (10:55)
[2023-05-16] MEDS: PIPERACILLIN/TAZOBACTAM 4.5 GM/100 ML BAG IV STA (11:23)
--- NOTE | 2023-05-16 11:32 | CT Scan Report ---
CT hand RT w con CLINICAL HISTORY: thumb, worsening infection TECHNIQUE: Multidetector row helical CT of the right hand was performed with intravenous contrast. Co efren and sagittal reformations were obtained. Automated dose lowering techniques and/or adjustment a ccording to patient size were utilized for this examination. CT DOSE: 430.03 mGy.cm Comparison: None available at the time of this dictation. FINDINGS: Exam is slightly limited by patient motion. There is degenerative change most prominently seen in the interphalangeal joints and first metacarpophalangeal joints. No joint effusion is seen. Mild diffus e soft tissue edema is seen, most prominently on the dorsal surface of the palm, without fluid collec tion. IMPRESSION: Soft tissue edema is seen most prominently on the dorsal surface of abnormal without drainable fluid collection. ACT 112: Negative or not required by law. Electronically signed by: Tom Drake M.D. 05/16/2023 11:30 AM
[2023-05-16] MEDS: VANCOMYCIN HCL 2,000 MG in SODIUM CHLORIDE 0.9% 500 ML IV STA (11:57)
--- NOTE | 2023-05-16 12:19 | History & Physical Report ---
Date of Service May 16, 2023 Assessment & Plan (1) Cellulitis of right thumb: (2) Failure of outpatient treatment: (3) Sepsis: (4) Atrial fibrillation with rapid ventricular response: (5) HTN, goal below 130/80: (6) Dyslipidemia: (7) Hypomagnesemia: Plan This is a 87-year-old male who has significant past medical history of paroxysmal atrial fibrillation, HFpEF, HTN, HLD, gout, GERD, BPH who presents to ED secondary to swelling and redness that is worsening to right thumb. He has had redness and swelling x 1 week. Upon arrival patient met criteria for Sepsis 2/2 hypotension and tachycardia. He has evidence of R thumb cellulitis. After receiving IVF he became hypertensive. He did receive broad-spectrum IV antibiotics with vancomycin and Zosyn. Blood cultures were obtained. Patient did take his morning blood pressure medications prior to arrival; it is possible this contributed to his hypotension; however sepsis not entirely ruled out Cellulitis of R thumb Possible Sepsis admit to PCU due to concern for possible Sepsis evidence of worsened swelling, redness to R thumb around DIP CT revealed soft tissue swelling, no joint effusion, no drainage collection other possible etiologies are herpetic sanjeev, spider bite will empirically treat for failed outpt cellulitis tx with IV vanco, rocephin given concern for possible sepsis consult orthopedics obtain HSV swab, cultures empirically tx with acyclovir oral and topical for possible herpetic sanjeev URIC acid 6.2, doubt acute gout PAF, now with Afib with RVR Chronic HFpEF pt hospitalized in November for acute afib and CHF has been tolerating metoprolol, lasix 3x weekly now in RVR likely in setting of possible infection prn IV Lopressor ordered, he has been compliant with eliquis CHADSVASC 5 continue currently metoprolol regimen, adjust if remains tachycardic despite treatment of infection Hypomagnesemia replace, keep < 2 in setting of afib will order 1g IV x 3 HTN bp initially low on arrival, ? if 2/2 to taking bp meds or true sepsis picture he is now hypertensive post IVF continue lisinopril, lasix, metoprolol with hold parameters Gout on allopurinol avoid NSAIDS, d/c indomethacin at discharge BPH continue finasteride HLD continue statin chronic stable DVT ppx: Eliquis FULL CODE PCP: Dr. Newhouser Dispo: admit to tele, admit for infectious w/u and orthopedic consult for possible cellulitis vs sanjeev vs spider bite or other hand infection Pt was seen and examined in collaboration with Dr. Ballesteros, please see addendum A total of 75 minutes was spent coordinating, documenting, and providing care for this patient excluding time spent in the performance of separately billed services. This included personally viewing all current laboratories and imaging studies, medication reconciliation, outpatient chart review, and discussion with specialists. History of Present Illness Chief Complaint: R hand pain x 1 week. Primary Care Provider: Alejandro Reddy DO This is a 87-year-old male who has significant past medical history of paroxysmal atrial fibrillation, HFpEF, HTN, HLD, gout, GERD, BPH who presents to ED secondary to swelling and redness that is worsening to right thumb. He has had redness and swelling x 1 week. 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 He has a prior hx of gout in his toes. Since he started allopurinol years ago he never had any issues. He was seen and evaluated by urgent care as outpatient who wasn't sure if it was gout or infection. They started him on doxycycline and indomethacin. When it first started out it did seem like his prior gout infections. It started as a lump between his PIP and his nail bed that. He continued to get more swollen and red. It was initially painful, but now is not. As it got more swollen he developed a blister on the top. He does not feel he got bit with anything. He does not do any work where he feels he could of got infection. is at bedside who states it is getting worse despite antibiotics. He has difficulty using his thumb. He denies f/c/s, chest pain, sob, uri sx, n/v/d, abd pain, change in bowel or urinary habits. He denies prior hx of cold sores or shingles or previous blistering diseases. In ED when he presented he was initially hypotensive and tachycardic. Blood cultures were obtained he received broad-spectrum IV antibiotics with vancomycin and Zosyn. He also received IV fluid. After administration of IV fluid he became hypertensive. Patient states he did take his morning medications specifically including his Eliquis, metoprolol and lisinopril. Allergies Allergy/AdvReac Type Severity Reaction Status Date / Time No Known Allergies Allergy Unverified 05/16/23 11:37 Home Medications Medication Instructions Recorded Confirmed Type allopurinol 300 mg tablet 300 mg PO QAM 05/01/18 05/16/23 History atorvastatin 10 mg tablet 10 mg PO QAM 05/01/18 05/16/23 History omeprazole 20 mg capsule,delayed 20 mg PO QAM 05/01/18 05/16/23 History release lueifsh-zibbbvoncsioz-bvcnzldk 250 2 tab PO AMPM 11/20/22 05/16/23 History mg-250 mg-65 mg tablet (Excedrin Extra Strength) finasteride 5 mg tablet 5 mg PO QAM 11/20/22 05/16/23 History lisinopril 40 mg tablet 40 mg PO QAM 11/20/22 05/16/23 History loratadine 10 mg tablet (Claritin) 10 mg PO QAM 11/20/22 05/16/23 History apixaban 5 mg tablet (Eliquis) 5 mg PO BID #3 tabs 11/22/22 05/16/23 Rx doxycycline hyclate 100 mg capsule 100 mg PO BID 05/16/23 05/16/23 History furosemide 20 mg tablet 20 mg PO MOWEFR 05/16/23 05/16/23 History indomethacin 50 mg capsule 50 mg PO TID PRN Pain 05/16/23 05/16/23 History metoprolol succinate 50 mg 50 mg PO BID 05/16/23 05/16/23 History tablet,extended release 24 hr Past Med/Surg History Medical History Bladder stones BPH (benign prostatic hyperplasia) GERD (gastroesophageal reflux disease) Gout Hypertension Surgical History S/P TURP Family History (Updated 05/16/23 @ 12:59 by Sandy Beltrán PA-C) Other Family history non-contributory Social History (Updated 05/16/23 @ 12:59 by Sandy Beltrán PA-C) Smoking Status: Never smoker Hx Alcohol Use: Yes Alcohol type: beer Alcohol type Comment: 1-2 beers/day Hx Substance Use: No Preferred Language: Belgian Anodizing Line Operator Required: No Beliefs That Will Affect Care: None Current Living Situation: Alone Feels Safe at Home: Yes Review of Systems Review of Systems: All systems reviewed & are unremarkable except as noted in HPI & below Physical Exam Physical Exam: please refer to DR. ballesteros exam for physical exam findings. Results & Data Results & Data Vital Signs (Past 12 Hours) Vital Signs Temp Pulse Resp BP Pulse Ox O2 Del Method 05/16/23 11:10 96 H 18 93 05/16/23 11:10 170/122 H 05/16/23 11:06 111 H 22 05/16/23 10:30 170/138 H 05/16/23 10:30 122 H 25 H 95 05/16/23 10:11 120 H 05/16/23 10:09 127 H 20 05/16/23 09:44 36.3 C L 120 H 18 80/50 L 94 Room Air Laboratory Results I have independently reviewed and interpreted patient's admitting labs including CBC, CMP, lactate, lipase, procal and mag. Diagnostic Findings Hand CT 05/16/23 10:07 CT hand RT w con CLINICAL HISTORY: thumb, worsening infection TECHNIQUE: Multidetector row helical CT of the right hand was performed with intravenous contrast. Coronal and sagittal reformations were obtained. Automated dose lowering techniques and/or adjustment according to patient size were utilized for this examination. CT DOSE: 430.03 mGy.cm Comparison: None available at the time of this dictation. FINDINGS: Exam is slightly limited by patient motion. There is degenerative change most prominently seen in the interphalangeal joints and first metacarpophalangeal joints. No joint effusion is seen. Mild diffuse soft tissue edema is seen, most prominently on the dorsal surface of the palm, without fluid collection. IMPRESSION: Soft tissue edema is seen most prominently on the dorsal surface of abnormal without drainable fluid collection. ACT 112: Negative or not required by law. Electronically signed by: Tom Drake M.D. 05/16/2023 11:30 AM Medications Administered Medication List Vancomycin HCl 2,000 mg/ (Sodium Chloride) 540 mls @ 200 mls/hr IV NOW STA Stop: 05/16/23 13:28 Last Admin: 05/16/23 11:57 Dose: 200 mls/hr Documented By: SWD Discontinued Medications Sodium Chloride (Nss) 500 mls @ 999 mls/hr IV .Q31M ONE Stop: 05/16/23 10:35 Last Infusion: 05/16/23 11:57 Dose: Infused Documented By: Admin: 05/16/23 10:21 Dose: 999 mls/hr Documented By: LAINA Piperacillin Sod/Tazobactam Sod (Zosyn) 4.5 gm in 100 mls @ 200 mls/hr IV NOW STA Stop: 05/16/23 11:17 Last Infusion: 05/16/23 11:57 Dose: Infused Documented By: Admin: 05/16/23 11:23 Dose: 200 mls/hr Documented By: ZOHRA Ioversol (Optiray 320 100ml) 94 ml IV ONCE ONE Stop: 05/16/23 10:56 Last Admin: 05/16/23 10:55 Dose: 94 ml Documented By: SONIA ECG Additional Comments: EKG ordered COVID-19 Results Results COVID-19 Adm Lab Results: RBC 4.23 M/uL (4.70-6.10) L 05/16/23 WBC 6.12 K/ul (4.8-10.8) 05/16/23 Hgb 13.3 g/dl (14.0-18.0) L 05/16/23 Hct 39.1 % (42.0-52.0) L 05/16/23 Plt Count 202 K/uL (130-400) 05/16/23 Neutrophils (%) (Auto) 78.1 % 05/16/23 Lymphocytes (%) (Auto) 13.7 % 05/16/23 Monocytes # (Auto) 0.39 K/uL (0.11-0.59) 05/16/23 Eosinophils # (Auto) 0.07 K/uL (0.00-0.50) 05/16/23 Immature Granulocyte % (Auto) 0.2 % 05/16/23 Neutrophils # (Auto) 4.78 K/uL (1.40-6.50) 05/16/23 Lymphocytes # (Auto) 0.84 K/uL (1.20-3.40) L 05/16/23 Monocytes # (Auto) 0.39 K/uL (0.11-0.59) 05/16/23 Eosinophils # (Auto) 0.07 K/uL (0.00-0.50) 05/16/23 Basophils # (Auto) 0.03 K/uL (0.00-0.20) 05/16/23 Immature Granulocyte # (Auto) 0.01 K/uL (0.01-0.20) 4 Na 138 mmol/L (136-145) 05/16/23 K 4.3 mmol/L (3.5-5.1) 05/16/23 Cl 105 mmol/L (98-107) 05/16/23 CO2 22 mmol/L (21-32) 05/16/23 Anion Gap 11 (3-11) 05/16/23 BUN 28 mg/dl (6-23) H 05/16/23 Creatinine 1.16 mg/dl (0.6-1.4) 05/16/23 BUN/Creatinine Ratio 24.1 (10-20) H 05/16/23 Glucose Level 171 mg/dl (70-99(Fasting)) H 05/16/23 Ca 9.3 mg/dl (8.6-10.3) 05/16/23 Total Bilirubin 0.5 mg/dl (0.2-1.0) 05/16/23 AST/SGOT 19 U/L (13-39) 05/16/23 ALT/SGPT 22 U/L (7-52) 05/16/23 Alkaline Phosphatase 90 U/L (34-104) 05/16/23 Total Protein 7.0 gm/dl (6.0-8.3) 05/16/23 Albumin 4.0 gm/dl (3.4-5.0) 05/16/23 Globulin 3.0 gm/dl (2.5-4.0) 05/16/23 Albumin/Globulin Ratio 1.3 (0.9-2) 05/16/23 Procalcitonin 0.05 ng/ml (0-0.5) 05/16/23 Code Status & VTE Plan Code Status FULL CODE Supervising Physician Co-Signing Physician Notes I have seen and discussed the case with the collaborating advanced practitioner. I agree with the above H&P. I have reviewed and confirmed the patients medical history, the findings on physical examination, and the patients diagnosis and treatment plan with Leigh Ann MACHADO and agree with the information documented. In short, Mr Bautista Villarreal is an 87 year old gentleman with past history notable for hypertension, GERD, Gout, and atrial fibrillation who is admitted for right thumb swelling. Patient initially treated for infection with doxycycline and indomethacin for infection v gout; however, no improvement noted. Symptoms started with red band just under cuticle, then white area followed by swelling and blistering. Patient reports pain initially when redness appeared, but no further pain thereafter. Patient without any systemic symptoms: no nausea, vomiting, muscles aches/cramps, fevers, chills, sweats or other symptoms accompanying the lesion. GENERAL APPEARANCE: AxOx4, generally well-appearing male, no acute distress. HEENT: NC, AT. MMM. EOMI, clear conjunctiva, oropharynx clear. NECK: Supple without lymphadenopathy. No stiffness or restricted ROM. HEART: irregularly irregular, tachycardic LUNGS: CTAB, moving air well. No crackles or wheezes are heard. ABDOMEN: Soft, nontender, nondistended with good bowel sounds heard. BACK: No CVAT, no obvious deformity. EXTREMITIES: Without cyanosis, clubbing or edema. NEUROLOGICAL: Grossly nonfocal. Alert and oriented, moving all 4 extremities. CN not formally tested but appear grossly intact. . Skin: large area of erythema and swelling on 1st digit that spares the palmar surface and extends from cuticle down the distal phalanx to the proximal phalanx and spares the MCP, skin erythema continues towards radial aspect of wrist; area is nontender to palpation. skin maceration and slough skin noted on nodular area of swelling on distal phalanx with more violaceous pronouced lesion on medial aspect of thumb, serosanguineous discharge from wound #Right thumb swelling, c/f infectious etiology -Less suspicious of gout (uric acid 6.2, initial insult did not appear around joint and inflammation is of sof tissues therefore limiting joint movement rather than intraarticular), suspicious for herpetic sanjeev given minimal response to doxycycline, blistering and location near nailbed, potential for adilene terial superimposed infection but no abscess formation on CT hand, potential for insect/spider bite however without systemic symptoms noted -Wound culture and HSV pcr of thumb -Continue broad abx while blood cultures result -Trial empiric acyclovir 800mg BID and topical acyclovir to site -ortho hand consult for eval #Persistent Atrial Fibrillation #Chronic Heart Failure with preserved EF [id number] Score 5 -Continue Metorpolol succinate 50mg BID -Continue Lasix 20mg po 3xweek -Continue atorvastatin and lisinopril -Continue Apixaban -Metoprolol IV prn #BPH Continue finasteride #History of Gout Uric acid 6.2 03 Continue Allopurinol Discontinue indomethacin, avoid NSAIDs #Chronic Normocytic anemia stable I spent a total of 35 minutes coordinating, documenting, and providing care for this patient excluding time spent in the performance of separately billed services. All of the aforementioned completed outside of collaborating with the assigned advanced practitioner for a full treatment plan. I have reviewed the advanced practitioner's documentation, and I agree with, and take responsibility for the plan of care
[2023-05-16] MEDS ORDERED: ONDANSETRON INJ 2 MG/ML 2 ML VIAL IV PRN (13:05)
[2023-05-16] MEDS ORDERED: VANCOMYCIN CONSULT ACTIVE PRN (13:05)
[2023-05-16] MEDS ORDERED: ACETAMINOPHEN 325 MG TAB PO PRN (13:05)
[2023-05-16] MEDS ORDERED: METOPROLOL TARTRATE 1 MG/ML VIAL IV PRN (13:11)
[2023-05-16] MEDS: METOPROLOL TARTRATE 1 MG/ML VIAL IV STA (13:37)
[2023-05-16] MEDS: MAGNESIUM SULFATE / D5W 1 GM/100 ML BAG IV SCH (13:38)
--- NOTE | 2023-05-16 13:51 | Pharmacy Report ---
Pharmacy PK ABX Note - Date of Service May 16, 2023 - Assessment and Plan Laboratory Tests 05/16/23 09:50 Creatinine 1.16 Est Cr Clr Drug Dosing 54.5 Assessment 87 year old M receiving VANC-IV, CEFTRIAXONE-IV, ACYCLOVIR-PO, ACYCLOVIR-TOP for treatment of R THUMB CELLULITIS. * Pertinent microbiologic data PENDING * Day #1 of antimicrobial therapy. Plan Vancomycin * Loading dose: 2000mg (20mg/kg) IV x 1 * Maintenance dose: 1250mg (12.5mg/kg) IV every 24 hours * Regimen is predicted to achieve target AUC/RAGHU of 400-600 mg/L.hr Pharmacy will continue to follow and will adjust dose/frequency as necessary. Thank you. Pharmacy has transitioned to AUC monitoring for vancomycin. AUC/RAGHU is the preferred PK/PD target and is associated with decreased risk of nephrotoxicity compared to traditional trough targets.
[2023-05-16] MEDS: ACYCLOVIR 400 MG TAB PO SCH (13:52)
[2023-05-16] MEDS: ACYCLOVIR 5% OINT 15 GM TUBE EXT SCH (13:53)
[2023-05-16] MEDS: cefTRIAXone SODIUM 2,000 MG in DEXTROSE 5 % MINI-B 50 ML IV SCH (14:09)
[2023-05-16] MEDS: LABETALOL HCL IV 5 MG/ML 20ML IV STA (15:08)
--- NOTE | 2023-05-16 15:10 | Electrocardiogram Report ---
Test Reason : Blood Pressure : / mmHG Vent. Rate : 105 BPM Atrial Rate : 000 BPM P-R Int : 000 ms QRS Dur : 104 ms QT Int : 352 ms P-R-T Axes : 000 067 -06 degrees QTc Int : 465 ms Atrial fibrillation with rapid ventricular response Abnormal ECG When compared with ECG of 21-NOV-2022 05:15, No significant change Confirmed by Johnathan Shaffer ([id number]) on 05/16/2023 3:09:58 PM Referred By: REFERRED SELF Confirmed By:Johnathan Shaffer
--- NOTE | 2023-05-16 17:22 | Orthopedic Consultation ---
Date of Service May 16, 2023 Assessment & Plan (1) Cellulitis of right thumb: I went over the diagnosis and treatment options with him at bedside. Right now he is on vancomycin and ceftriaxone. He does have a lot of swelling on the dorsal aspect of his thumb. The CT scan was a little hard to read. I think an MRI would be a better diagnostic imaging study. I ordered an MRI of his right hand. I like to get a better idea if there is a true fluid collection in that area. If there is it may benefit with an open I&D. If not, then we will continue the IV antibiotic treatment. I will continue to follow him closely. History of Present Illness Reason for Consultation: Right thumb infection. Requesting Physician: . Attending Physician: Khushi Borden MD Bautista is a pleasant 87-year-old male who has been dealing with a weeklong history of right thumb pain and swelling. He said it started about a week ago. He started noticing some redness and pain at the eponychium of his right thumbnail. He denies any traumas. He was seen by a primary provider. He was given doxycycline as well as Indocin for possible gout. Unfortunately, the swelling on the dorsal aspect of the thumb progressed. He came to the emergency room. Initial CT scan of the right hand was read as no abscess. He was admitte d to the hospitalist service. Orthopedics was consulted to evaluate and treat. He was started on ceftriaxone and vancomycin upon admission. Wound cultures were taken. Allergies Allergy/AdvReac Type Severity Reaction Status Date / Time No Known Allergies Allergy Unverified 05/16/23 11:37 Home Medications Medication Instructions Recorded Confirmed Type allopurinol 300 mg tablet 300 mg PO QAM 05/01/18 05/16/23 History atorvastatin 10 mg tablet 10 mg PO QAM 05/01/18 05/16/23 History omeprazole 20 mg capsule,delayed 20 mg PO QAM 05/01/18 05/16/23 History release htvqxes-kjmnskjmapqch-pcwdaynh 250 2 tab PO AMPM 11/20/22 05/16/23 History mg-250 mg-65 mg tablet (Excedrin Extra Strength) finasteride 5 mg tablet 5 mg PO QAM 11/20/22 05/16/23 History lisinopril 40 mg tablet 40 mg PO QAM 11/20/22 05/16/23 History loratadine 10 mg tablet (Claritin) 10 mg PO QAM 11/20/22 05/16/23 History apixaban 5 mg tablet (Eliquis) 5 mg PO BID #3 tabs 11/22/22 05/16/23 Rx doxycycline hyclate 100 mg capsule 100 mg PO BID 05/16/23 05/16/23 History furosemide 20 mg tablet 20 mg PO MOWEFR 05/16/23 05/16/23 History indomethacin 50 mg capsule 50 mg PO TID PRN Pain 05/16/23 05/16/23 History metoprolol succinate 50 mg 50 mg PO BID 05/16/23 05/16/23 History tablet,extended release 24 hr Past Med/Surg History Medical History Bladder stones BPH (benign prostatic hyperplasia) GERD (gastroesophageal reflux disease) Gout Hypertension Surgical History S/P TURP Family History Other Family history non-contributory Social History Smoking Status: Never smoker Second Hand Exposure: No; Do You Dip or Chew Tobacco: No; Tobacco Cessation Education Requested by Patient: No Hx Alcohol Use: No Hx Substance Use: No Preferred Language: Sami Communication Ability: Effective Corrections Sergeant Required: No Beliefs That Will Affect Care: None Current Living Situation: Alone Other Information That Helps Us Care for You: No Feels Safe at Home: Yes Safety Concerns: Feels Safe At This Time Assistive Devices: None Review of Systems All systems reviewed & are unremarkable except as noted in HPI & below. Physical Exam On physical examination of his right thumb, he does have a lot of swelling on the dorsal aspect. It appears mostly centered around the dorsal aspect of the DIP joint over the eponychium. There appears to be a blister in the area. I am able to squeeze out a very small amount of pus. He is able to flex and extend his thumb a moderate amount with minimal pain.. Constitutional WD/WN, vitals as above Eyes PERRL, conjunctivae normal, anicteric sclerae ENMT external ear and nose normal, oropharynx normal Neck trachea midline, no thyromegaly Respiratory normal respiratory effort Cardiovascular RRR, no murmur, no edema Gastrointestinal (Abdomen) normal bowel sounds, soft, nontender, no hepatosplenomegaly Psychiatric A+Ox3, euthymic affect Results & Data Results & Data Laboratory Results . Diagnostic Findings . PG Care Time/CCT Total # of Minutes Spent Total Time Spent with Patient: Total time spent is greater than 50% in coordination of care (as documented) at patient's floor/unit and/or counseling patient: Coding Level of Care Code 41993 IN/OBS CONSULT LVL 4,60M Diagnoses Cellulitis of right thumb L03.011
[2023-05-16] MEDS ORDERED: METOPROLOL SUCC 50MG EXT REL TAB PO SCH (21:00)
[2023-05-16] MEDS: METOPROLOL SUCC 25MG EXT REL TAB PO SCH (21:32)
[2023-05-16] MEDS: APIXABAN 5 MG TABLET PO SCH (21:33)
[2023-05-17] MEDS: VANCOMYCIN HCL 1,250 MG in SODIUM CHLORIDE 0.9% 250 ML IV SCH (00:37)
[2023-05-17 07:36] LABS: Basophils # (auto) 0.04 K/uL (0.00-0.20); Basophils % (auto) 0.6 %; Eosinophils # (auto) 0.18 K/uL (0.00-0.50); Eosinophils % (auto) 2.7 %; Hematocrit (blood only) 38.2 % (42.0-52.0); Hemoglobin 12.8 g/dl (14.0-18.0); Immature Granulocytes # (auto) 0.02 K/uL (0.01-0.20); Immature Granulocytes % (auto) 0.3 %; Lymphocytes # (auto) 1.02 K/uL (1.20-3.40); Lymphocytes % (auto) 15.3 %; Mean Corpuscular Hemoglobin 31.3 pg (25.0-34.0); Mean Corpuscular Hgb Conc 33.5 g/dL (32.0-36.0); Mean Corpuscular Volume 93.4 fL (80.0-100.0); Mean Platelet Volume 10.4 fL (9.4-12.4); Monocytes # (auto) 0.46 K/uL (0.11-0.59); Monocytes % (auto) 6.9 %; Neutrophils # (auto) 4.96 K/uL (1.40-6.50); Neutrophils % (auto) 74.2 %; Platelet Count 204 K/uL (130-400); RDW Coefficient of Variation 13.8 % (11.5-14.5); RDW Standard Deviation 46.5 fL (36.4-46.3); Red Blood Count 4.09 M/uL (4.70-6.10); White Blood Count 6.68 K/ul (4.8-10.8)
[2023-05-17 07:48] LABS: Albumin Globulin Ratio 1.4 (0.9-2); Albumin Level 3.9 gm/dl (3.4-5.0); BUN Creatinine Ratio 21.6 (10-20); Bilirubin,Total 0.5 mg/dl (0.2-1.0); Calcium 8.8 mg/dl (8.6-10.3); Creatinine Clr Calc Pharmacy 55.1 ml/min; Est GFR (African American) 66.2 ml/min; Est GFR (Non-African American) 57.1 ml/min; Globulin 2.8 gm/dl (2.5-4.0); Magnesium 1.9 mg/dl (1.7-2.4); Potassium 4.4 mmol/L (3.5-5.1); Total Protein 6.7 gm/dl (6.0-8.3)
[2023-05-17] MEDS: PANTOprazole 40 MG TAB PO SCH (08:07)
[2023-05-17] MEDS: ATORVASTATIN 10 MG TAB PO SCH (08:07)
[2023-05-17] MEDS: allopurinoL 300 MG TAB PO SCH (08:07)
[2023-05-17] MEDS: FINASTERIDE 5 MG TAB PO SCH (08:07)
[2023-05-17] MEDS: lisinopril 40 MG TAB PO SCH (08:07)
[2023-05-17] MEDS: FUROSEMIDE 20 MG TAB PO SCH (08:07)
[2023-05-17] MEDS: METOPROLOL TARTRATE 1 MG/ML VIAL IV PRN (08:32)
--- NOTE | 2023-05-17 12:17 | Cardiology Consultation ---
Date of Consultation May 17, 2023 Assessment & Plan (1) Cellulitis of right thumb: (2) Atrial fibrillation with rapid ventricular response: (3) Acute decompensated heart failure: Plan 87-year-old male presenting to the ER for right thumb pain and swelling consistent with cellulitis, improved since presentation, following administration of IV antibiotics. Cardiology consultation requested secondary to atrial fibrillation with a rapid ventricular response. Elevated rates appear multifactorial in etiology, with the infection and acute decompensated heart failure contributing. History is concerning for new onset systolic dysfunction. Refer for resting echocardiography Refer for a PA and lateral chest x-ray. 40 mg IV furosemide today along with oral potassium supplementation. Agree with titration of metoprolol succinate for additional heart rate control, IV Lopressor as ordered. Further recommendations pending the above, evaluation by Dr. Garcia, patient's ongoing hospital course. Maintain telemetry Supervising Physician Co-Signing Physician Notes Attending attestation: Case reviewed with the advanced practitioner. I have personally performed a history and physical examination on the patient. I have reviewed the advanced practitioner's documentation on the date of service referenced in note, and I agree with, and take responsibility for the plan of care. Subjective: Patient feeling subjectively improved at the time my assessment just before 5 PM. He notes that his right hand/thumb erythema and swelling is improved over the last 24 hours. Data: Telemetry reveals atrial fibrillation with a rate of approximately 116 bpm, rate had been as high as 170 bpm earlier today, and is much improved now. Echocardiogram revealed evidence of a small left pleural effusion. There is a small sized inferior wall motion abnormality with hypokinesis of the basal segment in the inferior wall, otherwise borderline diffuse left ventricular hypokinesis present, LVEF in the range of 50-55%. Moderate met regurgitation is present. Mild tricuspid vegetation present. Pulmonary artery systolic pressure mildly elevated 40 to 42 mmHg. Moderate left atrial enlargement. Compared to the previous study from November, there has been a subtle decline in the left ventricular systolic function and a small pleural effusion is now noted. Otherwise no significant change Impression/ Plan: -As noted above Andrés Garcia, DO History of Present Illness Reason for Consultation: Atrial fibrillation with rapid ventricular response Requesting Physician: Dr. Dickson Attending Physician: Dr. Dickson History of Present Illness 87-year-old male admitted with right thumb/hand swelling and erythema. Patient initially felt symptoms may be secondary to gout and took indomethacin with some improvement in discomfort when he was out of town. He was then evaluated at urgent care and advised to continue Indocin and was also prescribed a course of doxycycline, unfortunately without improvement leading to ER presentation on May 16, 2023. Initial blood pressure was 80/50 in the ER. IV fluids administered. Shortly thereafter and throughout ER course and subsequent hospitalization patients blood pressure has been hypertensive. Blood cultures and broad-spectrum antibiotics were initiated with vancomycin and Zosyn. EKG on presentation revealed atrial fibrillation with a rapid ventricular response (105 bpm) Cardiology consultation requested due to persistent atrial fibrillation with a rapid ventricular response. Last night patient noted worsening shortness of breath that was eased by sitting up, better when sitting in the bedside chair this morning. Patient did receive 20 mg of oral furosemide this morning with increased urination noted. Prior to arrival patient was prescribed metoprolol succinate 50 mg twice per day for heart rate control along with Eliquis anticoagulation. Patient notes occasionally missing Eliquis, missing 1 dose 2 or 3 weeks ago due to transient recurrent hematuria. Resting echocardiography in November 2022 was technically limited, with patient notably in atrial fibrillation with rapid ventricular response. Left ventricular ejection fraction was normal at 55 to 60%. Mild concentric LVH observed along with a small size inferior wall motion abnormality with hypokinesis of the segments. Moderate mitral and mild tricuspid regurgitation noted. Estimated pulmonary artery systolic pressure 40 mmHg. Problem List: Persistent atrial fibrillation Hypertension Heart failure with preserved ejection fraction Untreated obstructive sleep apnea Dyslipidemia. Gout GERD BPH status post laser vaporization by Dr. Hammond Bladder stone status post complicated litholapaxy, intermittent gross hematuria, Diverticulosis. Family History: Father with an AR at 60. Brother with CAD status post AR in his late 60s, status post CABG. Sister with cancer. Social History: Never smoker. No smokeless tobacco. Alcohol: 6 pack per week. Social alcohol only. No illegal drug use. . 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 Lives in [place]. Late was cared for by Dr. Cesar Kimball, with a history of atrial fibrillation, passing following a CVA. Allergies Allergy/AdvReac Type Severity Reaction Status Date / Time No Known Allergies Allergy Unverified 05/16/23 11:37 Home Medications Medication Instructions Recorded Confirmed Type allopurinol 300 mg tablet 300 mg PO QAM 05/01/18 05/16/23 History atorvastatin 10 mg tablet 10 mg PO QAM 05/01/18 05/16/23 History omeprazole 20 mg capsule,delayed 20 mg PO QAM 05/01/18 05/16/23 History release mjjovzm-kplbsjwsflwrq-naceqmdz 250 2 tab PO AMPM 11/20/22 05/16/23 History mg-250 mg-65 mg tablet (Excedrin Extra Strength) finasteride 5 mg tablet 5 mg PO QAM 11/20/22 05/16/23 History lisinopril 40 mg tablet 40 mg PO QAM 11/20/22 05/16/23 History loratadine 10 mg tablet (Claritin) 10 mg PO QAM 11/20/22 05/16/23 History apixaban 5 mg tablet (Eliquis) 5 mg PO BID #3 tabs 11/22/22 05/16/23 Rx doxycycline hyclate 100 mg capsule 100 mg PO BID 05/16/23 05/16/23 History furosemide 20 mg tablet 20 mg PO MOWEFR 05/16/23 05/16/23 History indomethacin 50 mg capsule 50 mg PO TID PRN Pain 05/16/23 05/16/23 History metoprolol succinate 50 mg 50 mg PO BID 05/16/23 05/16/23 History tablet,extended release 24 hr Patient History Medical History Bladder stones BPH (benign prostatic hyperplasia) GERD (gastroesophageal reflux disease) Gout Hypertension Surgical History S/P TURP Family History Other Family history non-contributory Social History Smoking Status: Never smoker Second Hand Exposure: No; Do You Dip or Chew Tobacco: No; Tobacco Cessation Education Requested by Patient: No Hx Alcohol Use: No Hx Substance Use: No Preferred Language: Greenlandic Communication Ability: Effective Top Flavor Attendant Required: No Beliefs That Will Affect Care: None Current Living Situation: Alone Other Information That Helps Us Care for You: No Feels Safe at Home: Yes Safety Concerns: Feels Safe At This Time Assistive Devices: None Review of Systems Review of Systems: Complete review of systems is otherwise as stated above, negative, or noncontributory Physical Exam Physical Exam: General: A&Ox3. NAD. Hard of hearing. HENT: Normocephalic. Atraumatic. Eyes: PER. Conjunctiva pink, sclera clear. Neck: No carotid bruits. JVD. Heart: Irregularly irregular at 120 bpm. No murmur appreciated. Lungs: Decreased at the bases. Bibasilar rales. No wheeze. Abdomen: +BS. Soft. Nontender. No organomegaly. Extremities: Minimal pretibial edema. No clubbing. No cyanosis Limited neurological examination is without focal deficits. Pulses: radial=2/4, posterior tibial=2/4. Results & Data Vital Signs (Past 12 Hours) Vital Signs Temp Pulse Pulse Resp BP BP Pulse Ox 05/17/23 11:57 36.9 C 111 H 19 161/92 H 94 05/17/23 08:51 128 H 05/17/23 08:32 145 H 05/17/23 07:02 36.7 C 122 H 16 169/69 H 92 05/17/23 07:00 104 H 05/17/23 03:00 36.6 C 100 H 18 160/99 H 92 05/17/23 00:32 107 H O2 Del Method 05/17/23 11:57 Room Air 05/17/23 08:51 05/17/23 08:32 05/17/23 07:02 Room Air 05/17/23 07:00 05/17/23 03:00 Room Air 05/17/23 00:32 Laboratory Results Cardiac Enzymes 05/17/23 Range/Units 06:51 AST 21 (13-39) U/L CBC 05/17/23 Range/Units 06:51 WBC 6.68 (4.8-10.8) K/ul RBC 4.09 L (4.70-6.10) M/uL Hgb 12.8 L (14.0-18.0) g/dl Hct 38.2 L (42.0-52.0) % Plt Count 204 (130-400) K/uL Neut # (Auto) 4.96 (1.40-6.50) K/uL Lymph # (Auto) 1.02 L (1.20-3.40) K/uL [place] # (Auto) 0.46 (0.11-0.59) K/uL Eos # (Auto) 0.18 (0.00-0.50) K/uL Baso # (Auto) 0.04 (0.00-0.20) K/uL Comprehensive Metabolic Panel 05/17/23 Range/Units 06:51 Sodium 138 (136-145) mmol/L Potassium 4.4 (3.5-5.1) mmol/L Chloride 106 (98-107) mmol/L Carbon Dioxide 23 (21-32) mmol/L BUN 25 H (6-23) mg/dl Creatinine 1.16 (0.6-1.4) mg/dl Glucose 105 H (70-99(Fasting)) mg/dl Calcium 8.8 (8.6-10.3) mg/dl AST 21 (13-39) U/L ALT 21 (7-52) U/L Alkaline Phosphatase 86 (34-104) U/L Total Protein 6.7 (6.0-8.3) gm/dl Albumin 3.9 (3.4-5.0) gm/dl Intake and Output 05/16/23 05/17/23 05/17/23 22:59 06:59 14:59 Intake Total 790 / 1665 275 / 1665 Balance 790 / 1665 275 / 1665 Intake: IV 790 / 1665 275 / 1665 Magnesium Sulfate / D5w 1 gm In 200 / 200 100 ml @ 50 mls/hr IV Q2H [facility] Rx#:[id number] Vancomycin HCl 1,250 mg In 275 / 275 Sodium Chloride 0.9% 250 ml @ 200 mls/hr IV Q24H [facility] Rx#: [id number] Vancomycin HCl 2,000 mg In 540 / 540 Sodium Chloride 0.9% 500 ml @ 200 mls/hr IV NOW STA Rx#: [id number] cefTRIAXone SODIUM 2,000 mg In 50 / 50 Dextrose 5 % Mini-B 50 ml @ 100 mls/hr IV Q24H [facility] Rx#: [id number] Oral 0 / 0 Other: # Unmeasured Voids 1 Weight 102.6 kg 101.5 kg Weight Measurement Method Built in [facility] Built in [facility]
--- NOTE | 2023-05-17 13:55 | Communication Note ---
Date of Service: May 17, 2023 I attempted to see Bautista on rounds today in which he was away with radiology obtaining his MRI scan as well as a chest x-ray. As discussed by Dr. Sun, we will have a more definitive plan after the MRI of the right hand is back. We would recommend continue with IV antibiotic treatment until MRI scan is back. Please reach out by [facility] or [facility] orthopedics if patient's situation is to change. Will follow-up with him tomorrow.
--- NOTE | 2023-05-17 13:56 | XRay Report ---
XR chest 2V PA/lateral CLINICAL HISTORY: Orthopnea. COMPARISON STUDY: Chest radiograph November 20, 2022. FINDINGS: Lung volumes are normal. There is no pneumothorax. Trace bilateral pleural effusions are pr esent. There is mild interstitial thickening. Moderate cardiomegaly is unchanged. There is no consoli dation to suggest pneumonia. IMPRESSION: Cardiomegaly with mild interstitial pulmonary edema and trace bilateral pleural effusion s. ACT 112: Negative or not required by law. Electronically signed by: Shilo Dior M.D. 05/17/2023 1:55 PM
--- NOTE | 2023-05-17 14:15 | Magnetic Resonance Report ---
MR hand RT wo con HISTORY: Dorsal right thumb infection TECHNIQUE: Multiplanar multisequence MRI of the right hand was performed without contrast according t o standard departmental protocol. COMPARISON STUDY: Right hand CT 05/16/2023. FINDINGS: There is diffuse subcutaneous edema seen throughout the right hand. There is also soft tiss ue edema throughout the right thumb with a small amount of ill-defined fluid surrounding the proximal phalanx of the right thumb. No loculated fluid collections to suggest an abscess. No significant brice nt fluid identified. No bony destructive changes. There is mild marrow edema within the right thumb p halanges without abnormal T1 signal to confirm an ostomy myelitis. Therefore, this favors an osteitis . No acute fracture or dislocation. 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 The flexor and extensor tendons are normal and course, caliber, and signal intensity. Small amount of fluid/edema tracking along the then ar muscles of the thumb. Punctate focus of susceptibility artifact along the radial side of the inter phalangeal joint of the thumb. No corresponding metallic foreign body by CT. Therefore, this could be superficial to the thumb rather than within the subcutaneous soft tissues. This is best seen on sagi ttal image 5 and axial image 21. IMPRESSION: 1. Abnormal marrow edema within the phalanges of the right thumb suggestive of an osteitis. No abnorm al T1 signal or bony destruction to confirm an osteomyelitis at this time. 2. Soft tissue edema surrounding the right thumb and extending into the thenar muscles. This favors a cellulitis. No loculated fluid collections to suggest an abscess. 3. Punctate focus of susceptibility artifact along the radial side of the interphalangeal joint of th e thumb. No corresponding metallic foreign body by CT. Therefore, this could be superficial to the th umb rather than within the subcutaneous soft tissues. Direct visualization recommended. ACT 112: Negative or not required by law. Electronically signed by: Srini Mcmillan M.D. 05/17/2023 2:13 PM
[2023-05-17] MEDS: FUROSEMIDE 40 MG/4 ML VIAL IV ONE (15:01)
[2023-05-17] MEDS: POTASSIUM CHLORIDE CRTAB 20 MEQ TABCR PO ONE (15:01)
--- NOTE | 2023-05-17 15:20 | Hospitalist Progress Note ---
Date of Service May 17, 2023 Assessment & Plan (1) Cellulitis of right thumb: (2) Failure of outpatient treatment: (3) Sepsis: (4) Atrial fibrillation with rapid ventricular response: (5) HTN, goal below 130/80: (6) Dyslipidemia: (7) Hypomagnesemia: Plan Patient is and 87 yr old male who has significant past medical history of paroxysmal atrial fibrillation, HFpEF, HTN, HLD, gout, GERD, BPH who presents to ED secondary to swelling and redness that is worsening to right thumb. He has had redness and swelling x 1 week. Sepsis Right thumb cellulitis. --Hand MRI:Abnormal marrow edema within the phalanges of the right thumb suggestive of an osteitis. No abnormal T1 signal or bony destruction to confirm an osteomyelitis at this time. Soft tissue edema surrounding the right thumb and extending into the thenar muscles. This favors a cellulitis. No loculated fluid collections to suggest an abscess. Punctate focus of susceptibility artifact along the radial side of the interphalangeal joint of the thumb. No corresponding metallic foreign body by CT. Therefore, this could be superficial to the thumb rather than within the subcutaneous soft tissues. Direct visualization recommended. --Normal uric acid levels -- Blood culture negative to date --Wound culture growing staph species --HSV serology pending --Empirically on vancomycin, Rocephin Also on topical acyclovir Appreciate orthopedics input Continue wound care Atrial fibrillation with RVR Acute decompensated heart failure --CXR:Cardiomegaly with mild interstitial pulmonary edema and trace bilateral pleural effusions. Hold p.o. Lasix Received IV Lasix Continue metoprolol, lisinopril IV Lopressor as needed Appreciate cardiology input Monitor I's and O's, daily weight On apixaban for anticoagulation Hypomagnesemia Replace and monitor HTN Continue metoprolol, lisinopril Monitor BP Gout Continue allopurinol Avoid NSAIDS, plan to discontinue indomethacin at discharge BPH continue finasteride HLD continue statin chronic stable DVT Px: Eliquis Code Status FULL CODE Admission and Anticipated Discharge Date Admission Date: May 16, 2023 Subjective Patient is seen and examined at bedside A-fib RVR on monitor Reports dyspnea on minimal exertion Denies any significant pain of right thumb Discussed with family at bedside Denies any chest pain, nausea, vomiting, abdominal pain, dizziness Review of Systems Review of Systems: All systems reviewed & are unremarkable except as noted in Subjective Physical Exam Physical Exam: Physical Exam: Vitals signs as noted above General Appearance:Moderately built and nourished, no apparent distress Head: normocephalic, Atraumatic Eyes: normal inspection, EOMI Neck: supple, Trachea midline Respiratory/Chest: Normal breath sounds, Basal rales,, No accessory muscle use Cardiovascular: Irregularly irregular, tachycardia No murmur Abdomen/GI:Soft, Non tender, Bowel sounds present Extremities/Musculoskeletal:normal inspection, Trace edema, R thumb in dressing Neurologic/Psych:AAOX3, grossly no focal neurological deficits Skin: normal color, warm Results & Data Results & Data Vital Signs (Past 12 Hours) Vital Signs Temp Pulse Pulse Resp BP BP Pulse Ox 05/17/23 11:57 36.9 C 111 H 19 161/92 H 94 05/17/23 08:51 128 H 05/17/23 08:32 145 H 05/17/23 07:02 36.7 C 122 H 16 169/69 H 92 05/17/23 07:00 104 H O2 Del Method 05/17/23 11:57 Room Air 05/17/23 08:51 05/17/23 08:32 05/17/23 07:02 Room Air 05/17/23 07:00 Laboratory Results Short CBC 05/17/23 Range/Units 06:51 WBC 6.68 (4.8-10.8) K/ul Hgb 12.8 L (14.0-18.0) g/dl Hct 38.2 L (42.0-52.0) % Plt Count 204 (130-400) K/uL BMP 05/17/23 06:51 Sodium 138 Potassium 4.4 Chloride 106 Carbon Dioxide 23 BUN 25 H Creatinine 1.16 Glucose 105 H Calcium 8.8 Liver Function 05/17/23 Range/Units 06:51 Total Bilirubin 0.5 (0.2-1.0) mg/dl AST 21 (13-39) U/L ALT 21 (7-52) U/L Alkaline Phosphatase 86 (34-104) U/L Albumin 3.9 (3.4-5.0) gm/dl
[2023-05-18 07:01] LABS: Hematocrit (blood only) 40.6 % (42.0-52.0); Hemoglobin 13.4 g/dl (14.0-18.0); Platelet Count 209 K/uL (130-400); RDW Coefficient of Variation 13.8 % (11.5-14.5); RDW Standard Deviation 47.6 fL (36.4-46.3); Red Blood Count 4.32 M/uL (4.70-6.10)
[2023-05-18 07:21] LABS: BUN Creatinine Ratio 21.5 (10-20); Creatinine Clr Calc Pharmacy 59.7 ml/min; Magnesium 1.9 mg/dl (1.7-2.4); Potassium 3.9 mmol/L (3.5-5.1)
[2023-05-18] MEDS ORDERED: LABETALOL HCL IV 5 MG/ML 20ML IV PRN (08:14)
--- NOTE | 2023-05-18 09:19 | Cardiology Progress Note ---
Date of Service May 18, 2023 Assessment & Plan (1) Cellulitis of right thumb: (2) Atrial fibrillation with rapid ventricular response: (3) Acute decompensated heart failure: Plan 87-year-old male presenting to the ER for right thumb pain and swelling consistent with cellulitis. Cardiology consultation requested secondary to atrial fibrillation with a rapid ventricular response which appears to be multifactorial in etiology infection as well as acute decompensated diastolic congestive heart failure with associated small right greater than left pleural effusions. Recommendations: 1. 40 mg IV furosemide today then transition to oral furosemide in the morning of May 19, 2023 2. 30 mEq of oral potassium supplementation today 3. Increase metoprolol succinate to 100 mg twice per day for additional heart rate control. Admission and Anticipated Discharge Date Admission Date: May 16, 2023 Supervising Physician Co-Signing Physician Notes Attending attestation: Case reviewed with the advanced practitioner. I have personally performed a history and physical examination on the patient. I have reviewed the advanced practitioner's documentation on the date of service referenced in note, and I agree with, and take responsibility for the plan of care. Impression/ Plan: -As noted above Andrés Garcia, DO Subjective Patient seen and examined. Chart reviewed including interim provider documentation, laboratory work, I/O's, telemetry, and resting echocardiography. Feeling better. Less short of breath. Slept well overnight, without orthopnea or PND. Thumb seems to be improving. No chest pain. No patient's. No fevers or chills. Telemetry: Atrial fibrillation with heart rates ranging from 90 to 120 bpm, high of 170. No significant bradycardia or pauses. No periods of sinus. May 17, 2023 TTE interpretation summary ([facility], Dr. Garcia): Atrial fibrillation with rapid ventricular response was present during echocardiogram study. A small left pleural effusion was observed. Small size inferior wall motion abnormality with hypokinesis of the basal segment of the inferior wall. Otherwise, borderline diffuse LV hypokinesis was present. Moderate mitral regurgitation. Mild tricuspid regurgitation. PASP estimated to be 40 to 42 mmH g. Moderately dilated left atrium. Compared to the prior study of November 20, 2022, there has been a subtle decline in LV systolic function and a small left pleural effusion is now noted. Otherwise, no significant change. Review of Systems Review of Systems: Complete review of systems is otherwise as stated above, negative, or noncontributory Physical Exam Physical Exam: General: A&Ox3. NAD. Hard of hearing. HENT: Normocephalic. Atraumatic. Eyes: PER. Conjunctiva pink, sclera clear. Neck: No carotid bruits. Minimal JVD. Heart: Irregularly irregular at 110 bpm. No murmur appreciated. Lungs: Decreased at the right base. Faint right basilar Rales. No wheeze. Abdomen: +BS. Soft. Nontender. No organomegaly. Extremities: No edema. No clubbing. No cyanosis. Limited neurological examination is without focal deficits. Pulses: radial=2/4, posterior tibial=2/4. Results & Data Vital Signs (Past 12 Hours) Vital Signs Temp Pulse Resp BP Pulse Ox O2 Del Method 05/18/23 08:58 144/95 H 05/18/23 07:26 36.7 C 98 H 20 178/114 H 96 Room Air 05/18/23 02:52 37.3 C 81 18 138/88 94 Room Air 05/17/23 23:13 37.3 C 100 H 20 157/97 H 95 Room Air Laboratory Results CBC 05/18/23 Range/Units 06:33 WBC 7.20 (4.8-10.8) K/ul RBC 4.32 L (4.70-6.10) M/uL Hgb 13.4 L (14.0-18.0) g/dl Hct 40.6 L (42.0-52.0) % Plt Count 209 (130-400) K/uL Comprehensive Metabolic Panel 05/18/23 Range/Units 06:33 Sodium 139 (136-145) mmol/L Potassium 3.9 (3.5-5.1) mmol/L Chloride 106 (98-107) mmol/L Carbon Dioxide 23 (21-32) mmol/L BUN 23 (6-23) mg/dl Creatinine 1.07 (0.6-1.4) mg/dl Glucose 107 H (70-99(Fasting)) mg/dl Calcium 9.0 (8.6-10.3) mg/dl Intake and Output 05/17/23 05/18/23 05/18/23 22:59 06:59 14:59 Intake Total 960 / 1560 550 / 1560 Output Total 2000 Balance -1041 / -441 550 / -441 Intake: IV 275 / 325 Vancomycin HCl 1,250 mg In 275 / 275 Sodium Chloride 0.9% 250 ml @ 200 mls/hr IV Q24H [facility] Rx#: [id number] Oral 960 / 1235 275 / 1235 Output: Urine 1999 # Bowel Movements Other: # Unmeasured Voids 3 2 Weight 101.2 kg Weight Measurement Method Built in [facility]
[2023-05-18] MEDS: POTASSIUM CHLORIDE 10 MEQ TABCR PO ONE (10:03)
[2023-05-18] MEDS: FUROSEMIDE 40 MG/4 ML VIAL IV ONE (10:03)
[2023-05-18] MEDS: METOPROLOL SUCC 25MG EXT REL TAB PO ONE (10:03)
--- NOTE | 2023-05-18 10:56 | Orthopedic Progress Note ---
Date of Service May 18, 2023 Assessment & Plan (1) Cellulitis of right thumb: Patient presentation and plan was discussed and implemented with Dr. Sun. At this point, we would recommend continuing with IV antibiotic treatment. It is felt that there would be no benefit with an open I&D due to there not being any abscess or fluid collection in the area of question to be able to express. Continue with wound management as per primary. At this point, we will sign off on this patient. Please reach out by Kimber[facility] text or to [facility] if the patient situation is to change. Subjective . Bautista was seen and evaluated at bedside resting comfortably in no apparent distress. He notes that his thumb is feeling a lot better since being admitted. His thumb is currently in a dressing but he has been using it with no significant issues. He denies any other concerns today. Review of Systems All systems reviewed & are unremarkable except as noted in HPI & below. Physical Exam . On physical examination of the right hand, his thumb is currently in a dressing with good range of motion and thumb opposition. He denies any pain or tenderness to palpation. Swelling is decreased since original admission. +2 radial pulses. Less than 2-second capillary refill. Normal sensation. Neurovascular intact. Results & Data Results & Data Laboratory Results . Diagnostic Findings Hand MRI 05/17/23 00:00 MR hand RT wo con HISTORY: Dorsal right thumb infection TECHNIQUE: Multiplanar multisequence MRI of the right hand was performed without contrast according to standard departmental protocol. COMPARISON STUDY: Right hand CT 05/16/2023. FINDINGS: There is diffuse subcutaneous edema seen throughout the right hand. There is also soft tissue edema throughout the right thumb with a small amount of ill-defined fluid surrounding the proximal phalanx of the right thumb. No loculated fluid collections to suggest an abscess. No significant joint fluid identified. No bony destructive changes. There is mild marrow edema within the right thumb phalanges without abnormal T1 signal to confirm an ostomy myelitis. Therefore, this favors an osteitis. No acute fracture or dislocation. 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 The flexor and extensor tendons are normal and course, caliber, and signal intensity. Small amount of fluid/edema tracking along the thenar muscles of the thumb. Punctate focus of susceptibility artifact along the radial side of the interphalangeal joint of the thumb. No corresponding metallic foreign body by CT. Therefore, this could be superficial to the thumb rather than within the subcutaneous soft tissues. This is best seen on sagittal image 5 and axial image 21. IMPRESSION: 1. Abnormal marrow edema within the phalanges of the right thumb suggestive of an osteitis. No abnormal T1 signal or bony destruction to confirm an os teomyelitis at this time. 2. Soft tissue edema surrounding the right thumb and extending into the thenar muscles. This favors a cellulitis. No loculated fluid collections to suggest an abscess. 3. Punctate focus of susceptibility artifact along the radial side of the interphalangeal joint of the thumb. No corresponding metallic foreign body by CT. Therefore, this could be superficial to the thumb rather than within the subcutaneous soft tissues. Direct visualization recommended. ACT 112: Negative or not required by law. Electronically signed by: Srini Mcmillan M.D. 05/17/2023 2:13 PM PG Care Time/CCT Total # of Minutes Spent Total Time Spent with Patient: Total time spent is greater than 50% in coordination of care (as documented) at patient's floor/unit and/or counseling patient: Coding Level of Care Code 67997 SUB INP/OBS CARE 2/35MIN Diagnoses Cellulitis of right thumb L03.011
--- NOTE | 2023-05-18 16:50 | Hospitalist Progress Note ---
Date of Service May 18, 2023 Assessment & Plan (1) Cellulitis of right thumb: (2) Failure of outpatient treatment: (3) Sepsis: (4) Atrial fibrillation with rapid ventricular response: (5) HTN, goal below 130/80: (6) Dyslipidemia: (7) Hypomagnesemia: Plan Patient is and 87 yr old male who has significant past medical history of paroxysmal atrial fibrillation, HFpEF, HTN, HLD, gout, GERD, BPH who presents to ED secondary to swelling and redness that is worsening to right thumb. He has had redness and swelling x 1 week. Sepsis Right thumb cellulitis. --Hand MRI:Abnormal marrow edema within the phalanges of the right thumb suggestive of an osteitis. No abnormal T1 signal or bony destruction to confirm an osteomyelitis at this time. Soft tissue edema surrounding the right thumb and extending into the thenar muscles. This favors a cellulitis. No loculated fluid collections to suggest an abscess. Punctate focus of susceptibility artifact along the radial side of the interphalangeal joint of the thumb. No corresponding metallic foreign body by CT. Therefore, this could be superficial to the thumb rather than within the subcutaneous soft tissues. Direct visualization recommended. --Normal uric acid levels -- Blood culture negative to date --Wound culture grew MSSA --HSV serology pending --Empirically on vancomycin, Rocephin>> continue Rocephin Will discontinue Vanco Also on topical acyclovir Appreciate orthopedics input Continue wound care Atrial fibrillation with RVR Acute decompensated heart failure --CXR:Cardiomegaly with mild interstitial pulmonary edema and trace bilateral pleural effusions. Hold p.o. Lasix Continue metoprolol, lisinopril IV Lopressor as needed Appreciate cardiology input Monitor I's and O's, daily weight On apixaban for anticoagulation Metoprolol succinate dose increased to 100 mg twice a day IV Lasix per cardiology Hypomagnesemia Replace and monitor Hypertensive urgency Continue metoprolol, lisinopril IV labetalol as needed Monitor BP Gout Continue allopurinol Avoid NSAIDS, plan to discontinue indomethacin at discharge BPH continue finasteride HLD continue statin chronic stable DVT Px: Eliquis Code Status FULL CODE Admission and Anticipated Discharge Date Admission Date: May 16, 2023 Subjective Patient is seen and examined at bedside Noticed dyspnea on exertion by RN Patient subjectively offers no new complaints today Intermittently remains tachycardic Denies any significant thumb pain Also denies any chest pain, nausea, vomiting, abdominal pain, dizziness Review of Systems Review of Systems: All systems reviewed & are unremarkable except as noted in Subjective Physical Exam Physical Exam: Physical Exam: Vitals signs as noted above General Appearance:Moderately built and nourished, no apparent distress Head: normocephalic, Atraumatic Eyes: normal inspection, EOMI Neck: supple, Trachea midline Respiratory/Chest: Normal breath sounds, Basal rales,, No accessory muscle use Cardiovascular: Irregularly irregular, tachycardia No murmur Abdomen/GI:Soft, Non tender, Bowel sounds present Extremities/Musculoskeletal:normal inspection, Trace edema, R thumb in dressing Neurologic/Psych:AAOX3, grossly no focal neurological deficits Skin: normal color, warm Results & Data Results & Data Vital Signs (Past 12 Hours) Vital Signs Temp Pulse Resp BP Pulse Ox O2 Del Method 05/18/23 16:06 36.6 C 110 H 20 157/102 H 97 Room Air 05/18/23 11:11 36.7 C 98 H 20 162/91 H 97 Room Air 05/18/23 08:58 144/95 H 05/18/23 07:26 36.7 C 98 H 20 178/114 H 96 Room Air Laboratory Results Short CBC 05/18/23 Range/Units 06:33 WBC 7.20 (4.8-10.8) K/ul Hgb 13.4 L (14.0-18.0) g/dl Hct 40.6 L (42.0-52.0) % Plt Count 209 (130-400) K/uL BMP 05/18/23 06:33 Sodium 139 Potassium 3.9 Chloride 106 Carbon Dioxide 23 BUN 23 Creatinine 1.07 Glucose 107 H Calcium 9.0
[2023-05-18] MEDS: METOPROLOL SUCC 50MG EXT REL TAB PO SCH (22:36)
[2023-05-19 08:02] LABS: Hematocrit (blood only) 38.7 % (42.0-52.0); Hemoglobin 12.6 g/dl (14.0-18.0); Mean Corpuscular Hemoglobin 30.7 pg (25.0-34.0); Mean Corpuscular Hgb Conc 32.6 g/dL (32.0-36.0); Mean Corpuscular Volume 94.4 fL (80.0-100.0); Mean Platelet Volume 9.9 fL (9.4-12.4); Platelet Count 215 K/uL (130-400); RDW Coefficient of Variation 13.8 % (11.5-14.5); RDW Standard Deviation 47.8 fL (36.4-46.3); White Blood Count 6.71 K/ul (4.8-10.8)
[2023-05-19 08:17] LABS: BUN Creatinine Ratio 17.6 (10-20); Calcium 8.6 mg/dl (8.6-10.3); Creatinine Clr Calc Pharmacy 57.8 ml/min; Est GFR (African American) 72.2 ml/min; Est GFR (Non-African American) 62.3 ml/min; Magnesium 1.8 mg/dl (1.7-2.4); Potassium 3.8 mmol/L (3.5-5.1)
--- NOTE | 2023-05-19 09:35 | Cardiology Progress Note ---
Date of Service May 19, 2023 Assessment & Plan (1) Cellulitis of right thumb: (2) Atrial fibrillation with rapid ventricular response: (3) Acute decompensated heart failure: Plan 87-year-old male presenting to the ER for right thumb pain and swelling consistent with cellulitis. Cardiology consultation requested secondary to atrial fibrillation with a rapid ventricular response which appears to be multifactorial in etiology infection as well as acute decompensated diastolic congestive heart failure with associated small right greater than left pleural effusions. Recommendations: 1. Increase Metoprolol succinate to 150 mg in the AM and 100 mg in the PM for additional heart rate and blood pressure control. 2. Continue Apixaban (Eliquis) anticoagulation, 5 mg twice a day. 3. Start oral furosemide 20 mg/day today 4. Start spironolactone 12.5 mg/day today. 5. Continue lisinopril 40 mg/day. 6. Continue atorvastatin 10 mg/day. 7. Increase activity as tolerated. Admission and Anticipated Discharge Date Admission Date: May 16, 2023 Supervising Physician Co-Signing Physician Notes Attending attestation: Case reviewed with the advanced practitioner. I have personally performed a history and physical examination on the patient. I have reviewed the advanced practitioner's documentation on the date of service referenced in note, and I agree with, and take responsibility for the plan of care. Impression/ Plan: -As noted above. 2 doses of 5 mg of IV labetalol on 05/19/2023 at 12:03 PM. Repeat blood pressure improved from 163/105 to 146/90. Patient eager for discharge and is doing much better from a cardiac and infectious disease standpoint. Dissipate discharge either later today or tomorrow with cardiac medications as outlined above which have been titrated during this hospital stay. Outpatient cardiology follow-up to be arranged. Andrés Garcia, DO Subjective Patient seen and examined. Chart, medications, and telemetry reviewed. Feeling well. No complaints. Breathing has definitely improved. No chest pain. No palpitations. Slept well again. Telemetry: Atrial fibrillation in the low 100's, up to 120 bpm. No significant bradycardia or pauses. May 17, 2023 TTE interpretation summary (BLESSING , Dr. Garcia): Atrial fibrilla tion with rapid ventricular response was present during echocardiogram study. A small left pleural effusion was observed. Small size inferior wall motion abnormality with hypokinesis of the basal segment of the inferior wall. Otherwise, borderline diffuse LV hypokinesis was present. Moderate mitral regurgitation. Mild tricuspid regurgitation. PASP estimated to be 40 to 42 mmHg. Moderately dilated left atrium. Compared to the prior study of November 20, 2022, there has been a subtle decline in LV systolic function and a small left pleural effusion is now noted. Otherwise, no significant change. Review of Systems Review of Systems: Complete review of systems is otherwise as stated above, negative, or noncontributory Physical Exam Physical Exam: General: A&Ox3. NAD. Hard of hearing. HENT: Normocephalic. Atraumatic. Eyes: PER. Conjunctiva pink, sclera clear. Neck: No carotid bruits. Minimal JVD. Heart: Irregularly irregular at 100 bpm. No murmur appreciated. Lungs: Clear to auscultation. No wheeze. Abdomen: +BS. Soft. Nontender. No organomegaly. Extremities: No edema. No clubbing. No cyanosis. Limited neurological examination is without focal deficits. Pulses: radial=2/4, posterior tibial=2/4. Results & Data Vital Signs (Past 12 Hours) Vital Signs Temp Pulse Pulse Resp BP Pulse Ox O2 Del Method 05/19/23 07:15 36.6 C 99 H 20 163/110 H 95 Room Air 05/19/23 02:53 36.6 C 95 H 18 149/70 H 94 Room Air 05/18/23 23:00 91 H 05/18/23 22:57 36.9 C 102 H 20 175/105 H 92 Room Air Laboratory Results CBC 05/19/23 Range/Units 07:04 WBC 6.71 (4.8-10.8) K/ul RBC 4.10 L (4.70-6.10) M/uL Hgb 12.6 L (14.0-18.0) g/dl Hct 38.7 L (42.0-52.0) % Plt Count 215 (130-400) K/uL Comprehensive Metabolic Panel 05/19/23 Range/Units 07:04 Sodium 140 (136-145) mmol/L Potassium 3.8 (3.5-5.1) mmol/L Chloride 107 (98-107) mmol/L Carbon Dioxide 26 (21-32) mmol/L BUN 19 (6-23) mg/dl Creatinine 1.08 (0.6-1.4) mg/dl Glucose 103 H (70-99(Fasting)) mg/dl Calcium 8.6 (8.6-10.3) mg/dl Intake and Output 05/18/23 05/19/23 05/19/23 22:59 06:59 14:59 Intake Total 290 / 850 Balance 290 / 850 Intake: IV 50 / 50 cefTRIAXone SODIUM 2,000 mg In 50 / 50 Dextrose 5 % Mini-B 50 ml @ 100 mls/hr IV Q24H [facility] Rx#: [id number] Oral 240 / 800 Other: Weight 96.6 kg Weight Measurement Method Built in [facility]
[2023-05-19] MEDS ORDERED: METOPROLOL SUCC 50MG EXT REL TAB PO SCH (09:45)
[2023-05-19] MEDS: FUROSEMIDE 20 MG TAB PO SCH (10:21)
[2023-05-19] MEDS: METOPROLOL SUCC 50MG EXT REL TAB PO ONE (10:21)
[2023-05-19] MEDS: SPIRONOLACTONE 12.5 MG TAB PO SCH (10:21)
[2023-05-19] MEDS: LABETALOL HCL IV 5 MG/ML 20ML IV PRN (12:03)
--- NOTE | 2023-05-19 14:40 | Discharge Summary ---
Discharge Summary Date of Service May 19, 2023 Notes For Next Care Provider Medication Changes From Visit -Increased furosemide 20mg to daily -Increased metoprolol 150mg BID -Added Spironolactone 12.5mg daily _Keflex 500mg qid, acyclovir 800mg BID for right thumb infection Admission HPI Per Admitting Provider This is a 87-year-old male who has significant past medical history of paroxysmal atrial fibrillation, HFpEF, HTN, HLD, gout, GERD, BPH who presents to ED secondary to swelling and redness that is worsening to right thumb. He has had redness and swelling x 1 week. 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 He has a prior hx of gout in his toes. Since he started allopurinol years ago he never had any issues. He was seen and evaluated by urgent care as outpatient who wasn't sure if it was gout or infection. They started him on doxycycline and indomethacin. When it first started out it did seem like his prior gout infections. It started as a lump between his PIP and his nail bed that. He continued to get more swollen and red. It was initially painful, but now is not. As it got more swollen he developed a blister on the top. He does not feel he got bit with anything. He does not do any work where he feels he could of got infection. is at bedside who states it is getting worse despite antibiotics. He has difficulty using his thumb. He denies f/c/s, chest pain, sob, uri sx, n/v/d, abd pain, change in bowel or urinary habits. He denies prior hx of cold sores or shingles or previous blistering diseases. In ED when he presented he was initially hypotensive and tachycardic. Blood cultures were obtained he received broad-spectrum IV antibiotics with vancomycin and Zosyn. He also received IV fluid. After administration of IV fluid he became hypertensive. Patient states he did take his morning medications specifically including his Eliquis, metoprolol and lisinopril. Admission Exam Per Admitting Provider GENERAL APPEARANCE: AxOx4, generally well-appearing male, no acute distress. HEENT: NC, AT. MMM. EOMI, clear conjunctiva, oropharynx clear. NECK: Supple without lymphadenopathy. No stiffness or restricted ROM. HEART: irregularly irregular, tachycardic LUNGS: CTAB, moving air well. No crackles or wheezes are heard. ABDOMEN: Soft, nontender, nondistended with good bowel sounds heard. BACK: No CVAT, no obvious deformity. EXTREMITIES: Without cyanosis, clubbing or edema. NEUROLOGICAL: Grossly nonfocal. Alert and oriented, moving all 4 extremities. CN not formally tested but appear grossly intact. . Skin: large area of erythema and swelling on 1st digit that spares the palmar surface and extends from cuticle down the distal phalanx to the proximal phalanx and spares the MCP, skin erythema continues towards radial aspect of wrist; area is nontender to palpation. skin maceration and slough skin noted on nodular area of swelling on distal phalanx with more violaceous pronouced lesion on medial aspect of thumb, serosanguineous discharge from wound Principal Dx & Hospital Course #1 = Principal Diagnosis (1) Cellulitis of right thumb: (2) Failure of outpatient treatment: (3) Sepsis: (4) Atrial fibrillation with rapid ventricular response: (5) HTN, goal below 130/80: (6) Dyslipidemia: (7) Hypomagnesemia: Plan Patient is and 87 yr old male who has significant past medical history of paroxysmal atrial fibrillation, HFpEF, HTN, HLD, gout, GERD, BPH who presents to ED secondary to swelling and redness that is worsening to right thumb. He has had redness and swelling x 1 week. Patient course complicated due to acute heart failure iso RVR. Cardiology followed and titrated medications. Plan for close OP follow up. #Persistent Atrial Fibrillation with RVR #Acute on Chronic Heart Failure with preserved EF [id number] Score 5 -Increased Metoprolol succinate 50mg BID to 150mg BID -Increased home Lasix 20mg po 3xweek to daily -Continue atorvastatin and lisinopril -Continue Apixaban -Cardiology consulted -plan for close follow up #Right thumb swelling, c/f infectious etiology -Less suspicious of gout (uric acid 6.2, initial insult did not appear around joint and inflammation is of sof tissues therefore limiting joint movement rather than intraarticular), suspicious for herpetic sanjeev given minimal response to doxycycline, blistering and location near nailbed, potential for bacterial superimposed infection but no abscess formation on CT hand, potential for insect/spider bite however without systemic symptoms noted -Wound culture and HSV pcr of thumb -Continue broad abx while blood cultures result -Trial empiric acyclovir 800mg BID and topical acyclovir to site -ortho hand consult for eval -No surgical intervention #BPH Continue finasteride #History of Gout Uric acid 6.2 05/15 Continue Allopurinol Discontinue indomethacin, avoid NSAIDs #Chronic Normocytic anemia stable Discharge Exam Constitutional WD/WN, vitals as above Respiratory normal respiratory effort, lungs clear to auscultation Cardiovascular irregularly irregular Skin right hand with notable improvement in erythema and swelling, Updated Medication List Medication Instructions Recorded Confirmed Type allopurinol 300 mg tablet 300 mg PO QAM 05/01/18 05/16/23 History atorvastatin 10 mg tablet 10 mg PO QAM 05/01/18 05/16/23 History omeprazole 20 mg capsule,delayed 20 mg PO QAM 05/01/18 05/16/23 History release [id number] 250 2 tab PO AMPM 11/20/22 05/16/23 History mg-250 mg-65 mg tablet (Excedrin Extra Strength) finasteride 5 mg tablet 5 mg PO QAM 11/20/22 05/16/23 History loratadine 10 mg tablet (Claritin) 10 mg PO QAM 11/20/22 05/16/23 History apixaban 5 mg tablet (Eliquis) 5 mg PO BID #3 tabs 11/22/22 05/16/23 Rx acyclovir 400 mg tablet 800 mg (2 x 400 mg) PO BID #8 tabs 05/19/23 Rx acyclovir 5 % topical ointment 1 applic EXT QID #5 grams 05/19/23 Rx (Zovirax) cephalexin 500 mg capsule 500 mg PO QID #20 caps 05/19/23 Rx furosemide 20 mg tablet 20 mg PO DAILY #30 tabs 05/19/23 Rx lisinopril 40 mg tablet 40 mg PO QAM #30 tabs 05/19/23 Rx metoprolol succinate 50 mg 150 mg (3 x 50 mg) PO BID #180 tabs 05/19/23 Rx tablet,extended release 24 hr spironolactone 25 mg tablet 12.5 mg (1/2 x 25 mg) PO DAILY #30 05/19/23 Rx tabs Hospital Stay Data Consultations 05/16/23 12:11 ED Decision to Admit Stat 05/16/23 12:30 Consult Orthopedic Surgery Routine 05/17/23 08:09 Consult Cardiology Routine Diagnostic Imagining Performed 05/16/23 10:07 CT hand RT w con Stat 05/17/23 00:00 MR hand RT wo con Routine Pending Results Patient Have Any Pending Studies at Discharge: No Discharge Instructions Given to Patient (Per Discharging Provider) You were admitted for right thumb cellulitis. There was no abscess or drainable collection. You will be sent home on the following: -Acyclovir 800mg two times daily, your next dose is this evening around 8-9pm (05/18) -Keflex 500mg four times a day (breakfast, lunch, dinner, bedtime), next dose is tomorrow morning (05/19) -Topical Acyclovir, please follow wound care instructions given to you by nursing prior to discharge, please use small amount of topical acyclovir 4-5 times daily after cleaning wound and before placing bandage You were noted to be in atrial fibrillation with rapid rate. Cardiology consulted and made the following medication changes -Continue lisinopril 40mg daily -Continue eliquis 5 mg two times a day -Increase Metoprolol to 150mg two times a day -Start spironolactone 12.5mg daily -Increase furosemide 20mg to daily Please do not use indomethacin or other NSAIDS (ibuprofen, naproxen) for pain management. Please use tylenol or follow with PCP to discuss other appropriate agents if necessary in the future for pain Please follow up with Cardiology closely upon discharge Total Time Total Time Spent Total Time Spent (In Minutes): 35
[2023-05-19 16:31] LABS: HSV Type 1 DNA Not Detected (Not Detected); HSV Type 1&2 DNA Source Whole Blood; HSV Type 2 DNA Not Detected (Not Detected)
== END 2023-05-19 17:49 | disposition home or self-care (01) | DRG 871 ==
LOC: ED 09:35 → SUATTDRO 12:44 → EDINP 12:44 → 2S 15:16